=== PATIENT | male | born 1945 | race African-American/Black ===

== ENCOUNTER 2018-04-16 18:08 | Emergency (ER) | payer MEDICARE, MEDICAID ==
[2018-04-16 18:52] LABS: #Basophils 0.1 thou/uL (0.0-0.2); #Eosinphils 0.1 thou/uL (0.0-0.7); #Lymphocytes 1.9 thou/uL (1.20-3.40); #Monocytes 0.4 thou/uL (0.11-0.59); #Neutrophils 2.7 thou/uL (1.40-6.50); %Basophils 1.8 % (0.0-1.0); %Eosinophils 2.3 % (0.0-10.0); %Lymphocytes 35.7 % (21.0-51.0); %Monocytes 8.2 % (0.0-10.0); Hemoglobin 14.3 g/dL (14.0-18.0); Mean Corpuscular HGB CONC 31.4 g/dL (32.0-36.0); Mean Corpuscular Hemoglobin 28.5 pg (27.0-31.0); Mean Corpuscular Volume 90.8 fl (80.0-94.0); Mean Platelet Volume 8.1 fL (7.4-10.4); Platelet Count 174 thou/uL (130-400); RBC Distribution Width 14.7 % (11.5-14.5); White Blood Cell (WBC) Count 5.2 thou/uL (4.8-10.8)
[2018-04-16 19:04] LABS: PTT 26.2 SEC (22.9-36.1); Prothrombin Time 13.7 SEC (12.0-14.7)
[2018-04-16 19:14] LABS: ALT (SGPT) Less than 7 U/L (8-55); AST (SGOT) 21 U/L (5-34); Albumin 4.4 g/dL (3.4-4.8); Alkaline Phosphatase 49 U/L (40-150); Anion Gap 15 mmol/L (10-20); BUN (Urea Nitrogen) 14 mg/dL (8.4-25.7); Bilirubin, Total 0.4 mg/dL (0.2-1.2); CK (CPK) 358 U/L (30-200); Calc. Creatinine Clearance 0 mL/min (70-130); Calcium 9.6 mg/dL (7.8-10.44); Carbon Dioxide 24 mmol/L (23-31); Chloride 102 mmol/L (98-107); Estimated GFR-MDRD Greater than 90; Globulin 3.3 g/dL (2.4-3.5); Glucose 81 mg/dL (80-115); Lipase 35 U/L (8-78); Potassium 3.8 mmol/L (3.5-5.1); Protein, Total 7.7 g/dL (5.8-8.1); Sodium 137 mmol/L (136-145)
[2018-04-16 19:17] LABS: Bilirubin Negative (Negative); Blood, Urine Moderate (Negative); Clarity CLEAR (Clear); Glucose, Urine (Dipstick) Negative (Negative); Leukocyte Small (Negative); Nitrite Negative (Negative); Protein, Urine (Dipstick) Negative (Neg-Trace); pH, Urine 5.5 (5.0-9.0)
[2018-04-16 19:18] LABS: CKMB 3.4 ng/mL (0-6.6); Troponin I Less than 0.010 ng/mL (< 0.028)
[2018-04-16 19:20] LABS: Bacteria/HPF None Seen HPF (None Seen); Hyaline Casts/LPF 7-10 HYALINE CAST LPF (0-3 Hyaline); Pathc Cast-AUWi Flag 1.16 (0-2.49); RBC/HPF 21-50 HPF (0-3); Squamous Epithelial 0-3 HPF (0-3)
--- NOTE | 2018-04-16 19:40 | CT ---
CT BRAIN WITHOUT CONTRAST: 04/16/18 HISTORY: Confusion. COMPARISON: CT brain 05/08/15. FINDINGS: Mild microvascular ischemic changes. No acute territorial infarct or hemorrhage. No midline shift or mass effect. The mastoids are clear. The paranasal sinuses are clear. IMPRESSION: No acute intracranial abnormality. POS: [facility]
--- NOTE | 2018-04-16 20:48 | RAD ---
LIMITED CHEST ONE VIEW: 04/16/18 HISTORY: Altered mental status. COMPARISON: Radiograph 07/14/17. FINDINGS: The lungs are clear. No pneumothorax or effusion. The cardiac silhouette and mediastinal contours are within normal limits. Mild degenerative disease both glenohumeral joints. Moderate degenerative disease of both acromioclav icular joints. IMPRESSION: No acute intrathoracic abnormality. POS: [facility]
== END 2018-04-16 23:26 | disposition home or self-care (01) ==
LOC: ERS 18:08
DX: N39.0 Urinary tract infection, site not specified (principal); R53.1 Weakness; E78.5 Hyperlipidemia, unspecified; G20 Parkinson's disease; N40.0 Benign prostatic hyperplasia without lower urinary tract symptoms
CPT/HCPCS: 36415; 70450; 71045; 81015; 82553; 83690; 84484; 85610; 85730; 87086; 93005; 96360

== ENCOUNTER 2018-09-15 08:43 | Outpatient (CLI) | payer MEDICARE, MEDICAID ==
--- NOTE | 2018-09-15 15:40 | NM ---
NUCLEAR MEDICINE BRAIN IMAGING TOMOGRAPHY: 09/15/18 INDICATION: Parkinson's disease. RADIOPHARMACEUTICAL: 130 mg potassium iodide p.o. FINDINGS: There is symmetric, crescentic, scintigraphic uptake at the striata, bilaterally. IMPRESSION: Symmetric uptake of radiotracer activity, bilaterally. POS: [facility]
== END 2018-09-15 08:44 | disposition home or self-care (01) ==
LOC: NM 08:43
PROVIDERS: ATTEND Nurse Practitioner Acute Care
DX: G20 Parkinson's disease (principal)
CPT/HCPCS: 78607; A9584

== ENCOUNTER 2019-02-09 11:39 | Inpatient (IN) | payer MEDICARE, MEDICAID ==
[2019-02-09 12:36] LABS: Bilirubin Small (Negative); Blood, Urine Negative (Negative); Clarity CLOUDY (Clear); Glucose, Urine (Dipstick) Negative (Negative); Leukocyte Small (Negative); Nitrite Positive (Negative); Protein, Urine (Dipstick) 30 mg/dL (Neg-Trace); Specific Gravity, Urine 1.029 (1.002-1.036); pH, Urine 6.5 (5.0-9.0)
[2019-02-09 12:38] LABS: RBC/HPF 0-3 HPF (0-3); Squamous Epithelial 0-3 HPF (0-3); Yeast-AUWi Flag 6.5 (0-25.0)
[2019-02-09 12:39] LABS: Pathc Cast-AUWi Flag 2.72 (0-2.49)
[2019-02-09 12:40] LABS: Hemoglobin 14.4 g/dL (14.0-18.0); Mean Corpuscular HGB CONC 32.6 g/dL (32.0-36.0); Mean Corpuscular Hemoglobin 28.8 pg (27.0-31.0); Mean Corpuscular Volume 88.3 fL (78.0-98.0); Mean Platelet Volume 9.1 fL (7.4-10.4); Platelet Count 168 thou/uL (130-400); RBC Distribution Width 14.3 % (11.5-14.5); Red Blood Cell (RBC) Count 4.99 mill/uL (4.70-6.10); White Blood Cell (WBC) Count 17.3 thou/uL (4.8-10.8)
[2019-02-09 12:49] LABS: ALT (SGPT) Less than 7 U/L (8-55); AST (SGOT) 17 U/L (5-34); Albumin 3.9 g/dL (3.4-4.8); Alkaline Phosphatase 52 U/L (40-150); Anion Gap 14 mmol/L (10-20); BUN (Urea Nitrogen) 13 mg/dL (8.4-25.7); CK (CPK) 341 U/L (30-200); Calc. Creatinine Clearance 0 mL/min (70-130); Calcium 9.3 mg/dL (7.8-10.44); Carbon Dioxide 22 mmol/L (23-31); Chloride 103 mmol/L (98-107); Estimated GFR-MDRD Greater than 90; Globulin 3.4 g/dL (2.4-3.5); Glucose 78 mg/dL (83-110); Potassium 4.1 mmol/L (3.5-5.1); Protein, Total 7.3 g/dL (5.8-8.1); Sodium 135 mmol/L (136-145)
[2019-02-09 12:50] LABS: Bacteria/HPF 4+ HPF (None Seen); Hyaline Casts/LPF 0-3 HYALINE CAST LPF (0-3 Hyaline); Manual Microscopic Reviewed? No Path Casts Seen; Sperm/HPF Rare HPF (None Seen)
--- NOTE | 2019-02-09 12:50 | RAD ---
TWO VIEWS LEFT KNEE: History: Fall with knee pain. FINDINGS: Two views of the left knee shows no evidence of acute fracture or dislocation. No knee effusion is se en. IMPRESSION: No evidence of acute osseous abnormality. POS: [facility]
--- NOTE | 2019-02-09 12:52 | RAD ---
SINGLE VIEW OF THE CHEST: Comparison: 04-16-18 History: Fall, chest pain. FINDINGS: Single view of the chest shows a normal sized cardiomediastinal silhouette with atherosclerotic calci fications in the aorta. There is no evidence of consolidation, mass, or pleural effusions. The bones are unremarkable. IMPRESSION: 1. No evidence of acute cardiopulmonary disease. 2. Atherosclerotic disease. POS: [facility]
--- NOTE | 2019-02-09 12:56 | RAD ---
AP PELVIS: History: Fall with injury to pelvis. FINDINGS: Pelvis appears intact with no evidence of fracture. Mild degenerative changes at both hips. IMPRESSION: No active abnormality. POS: [facility]
--- NOTE | 2019-02-09 12:57 | RAD ---
LEFT HIP TWO VIEWS: History: Fall with injury to hip. FINDINGS: There are mild degenerative changes at the left hip. Mild spurring from the femoral head and acetabul um. No fracture. No acute abnormality. IMPRESSION: No acute findings. POS: [facility]
--- NOTE | 2019-02-09 13:03 | CT ---
CT BRAIN WITHOUT CONTRAST: Comparison: 04-16-18 History: Unwitnessed fall at senior living yesterday. Altered mental status. Technique: Multiple contiguous axial images were obtained in a CT of the brain without contrast. FINDINGS: The brain is normal in morphology and attenuation without focal lesions or confluent areas of infarct ion. There is no evidence of hydrocephalus, intracranial hemorrhage, or extraaxial fluid collections. The calvarium and overlying soft tissues are unremarkable. The visualized paranasal sinuses and masto id air cells are well aerated. IMPRESSION: No evidence of acute intracranial abnormality. POS: [facility]
[2019-02-09 13:25] LABS: Band 12 % (5-11); Lymphocytes 1 % (21-51); MDiff Complete? YES; Monocytes 4 % (0-10); Neutrophil 83 % (42-75); Platelet Morphology Comment Appears Adequate
[2019-02-09] MEDS ORDERED: cefTRIAXone\\ROCEPHIN 1 GM VIAL ONE (14:19)
[2019-02-09] MEDS ORDERED: Polyethylene Glycol 3350 17 GM Packet PO PRN (15:36)
[2019-02-09] MEDS ORDERED: traZODone HCl 50 MG TAB PO PRN (15:36)
[2019-02-09] MEDS: Acetaminophen 325 MG TAB PO PRN (21:01)
[2019-02-09] MEDS: Docusate 100 MG CAP PO SCH (21:02)
[2019-02-09] MEDS: Carbidopa/Levodopa 25-100 mg Tablet PO SCH (21:02)
[2019-02-09] MEDS: Atorvastatin Calcium 10 MG TAB PO SCH (21:02)
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
[2019-02-09] MEDS ORDERED: Acetaminophen 650 MG Suppository PR PRN (23:18)
[2019-02-09] MEDS ORDERED: Vancomycin HCl 1 GM in Premix Bag 1 BAG IVPB SCH (23:30)
[2019-02-09] MEDS: MEROPENEM 1 GM/50 ML 1 GM in Premix Bag 1 BAG IVPB SCH (23:47)
[2019-02-10 00:14] LABS: Anion Gap 12 mmol/L (10-20); BUN (Urea Nitrogen) 12 mg/dL (8.4-25.7); CK (CPK) 354 U/L (30-200); Calc. Creatinine Clearance 69 mL/min (70-130); Calcium 8.7 mg/dL (7.8-10.44); Carbon Dioxide 23 mmol/L (23-31); Chloride 105 mmol/L (98-107); Estimated GFR-MDRD 80; Glucose 121 mg/dL (83-110); Potassium 3.9 mmol/L (3.5-5.1); Sodium 136 mmol/L (136-145)
[2019-02-10 00:16] LABS: Band 6 % (5-11); Hemoglobin 13.8 g/dL (14.0-18.0); Lymphocytes 10 % (21-51); MDiff Complete? YES; Mean Corpuscular HGB CONC 32.5 g/dL (32.0-36.0); Mean Corpuscular Hemoglobin 29.3 pg (27.0-31.0); Mean Platelet Volume 8.4 fL (7.4-10.4); Monocytes 4 % (0-10); Neutrophil 80 % (42-75); Platelet Count 159 thou/uL (130-400); RBC Distribution Width 14.4 % (11.5-14.5); Red Blood Cell (RBC) Count 4.71 mill/uL (4.70-6.10)
[2019-02-10] MEDS: Sodium Chloride 0.9% 1,000 ML IV SCH ×3 (00:36→21:53)
[2019-02-10] MEDS ORDERED: Meropenem 1 GM in Sodium Chloride 0.9% 100 ML IVPB SCH (06:00)
[2019-02-10 06:14] LABS: Anion Gap 11 mmol/L (10-20); BUN (Urea Nitrogen) 12 mg/dL (8.4-25.7); Calc. Creatinine Clearance 81 mL/min (70-130); Calcium 8.5 mg/dL (7.8-10.44); Carbon Dioxide 24 mmol/L (23-31); Chloride 105 mmol/L (98-107); Estimated GFR-MDRD Greater than 90; Glucose 106 mg/dL (83-110); Potassium 3.8 mmol/L (3.5-5.1); Sodium 136 mmol/L (136-145)
[2019-02-10 06:18] LABS: Band 7 % (5-11); Hemoglobin 13.4 g/dL (14.0-18.0); Lymphocytes 6 % (21-51); MDiff Complete? YES; Mean Corpuscular HGB CONC 32.8 g/dL (32.0-36.0); Mean Corpuscular Hemoglobin 29.5 pg (27.0-31.0); Mean Corpuscular Volume 89.9 fL (78.0-98.0); Mean Platelet Volume 8.4 fL (7.4-10.4); Monocytes 12 % (0-10); Neutrophil 75 % (42-75); Platelet Count 149 thou/uL (130-400); RBC Distribution Width 14.2 % (11.5-14.5); Red Blood Cell (RBC) Count 4.56 mill/uL (4.70-6.10); White Blood Cell (WBC) Count 16.4 thou/uL (4.8-10.8)
[2019-02-10] MEDS: MEROPENEM 1 GM/50 ML 1 GM in Premix Bag 1 BAG IVPB SCH ×3 (09:36→23:55)
[2019-02-10] MEDS: Enoxaparin Sodium 40 MG/0.4 ML SYRINGE SC SCH (09:37)
[2019-02-10] MEDS: Carbidopa/Levodopa 25-100 mg Tablet PO SCH ×3 (09:38→21:17)
[2019-02-10] MEDS: Docusate 100 MG CAP PO SCH ×2 (09:38→23:57)
--- NOTE | 2019-02-10 11:04 | PDOC.PN ---
- Subjective Encounter Start Date: 02/10/19 Encounter Start Time: 08:20 Subjective: awake, responds well to verbal stimuli, is slow to talk -: no trouble breathing or abd pain -: ate his breakfast - Objective Resuscitation Status - Order Detail: 02/09/19 15:27 Resuscitation Status Routine Resuscitation Status: FULL: Full Resuscitation MAR Reviewed: Yes Vital Signs & Weight: Vital Signs (12 hours) Temp Pulse Resp BP Pulse Ox 02/10/19 08:00 98.3 F 99 16 101/68 98 02/10/19 04:00 98.9 F 101 H 18 107/58 L 97 Weight Weight 174 lb 4.8 oz Result Diagrams: 02/10/19 05:30 02/10/19 05:30 Phys Exam - Physical Examination HEENT: PERRLA, moist MMs Neck: no JVD, supple Respiratory: no wheezing, no rales Cardiovascular: RRR, no significant murmur Gastrointestinal: soft, non-tender, positive bowel sounds Musculoskeletal: no edema, pulses present Neurological: non-focal, moves all 4 limbs Dx/Plan (1) Sepsis Code(s): A41.9 - SEPSIS, UNSPECIFIED ORGANISM Status: Acute Qualifiers: Sepsis type: sepsis due to unspecified organism Qualified Code(s): A41.9 - Sepsis, unspecified organism (2) UTI (urinary tract infection) Status: Acute Qualifiers: Urinary tract infection type: acute cystitis Hematuria presence: without hematuria Qualified Code(s): N30.00 - Acute cystitis without hematuria (3) Dementia Code(s): F03.90 - UNSPECIFIED DEMENTIA WITHOUT BEHAVIORAL DISTURBANCE Status: Chronic Qualifiers: Dementia type: Parkinson's disease Dementia behavioral disturbance: without behavioral disturbance Qualified Code(s): G20 - Parkinson's disease; F02.80 - Dementia in other diseases classified elsewhere without behavioral disturbance (4) HTN (hypertension) Code(s): I10 - ESSENTIAL (PRIMARY) HYPERTENSION Status: Chronic Qualifiers: Hypertension type: essential hypertension Qualified Code(s): I10 - Essential (primary) hypertension (5) BPH (benign prostatic hyperplasia) Code(s): N40.0 - BENIGN PROSTATIC HYPERPLASIA WITHOUT LOWER URINRY TRACT SYMP Status: Chronic Qualifiers: Lower urinary tract symptom presence: unspecified whether lower urinary tract symptoms present Qualified Code(s): N40.0 - Benign prostatic hyperplasia without lower urinary tract symptoms (6) Weakness generalized Code(s): R53.1 - WEAKNESS Status: Acute (7) Dyslipidemia Code(s): E78.5 - HYPERLIPIDEMIA, UNSPECIFIED Status: Chronic (8) GERD (gastroesophageal reflux disease) Code(s): K21.9 - GASTRO-ESOPHAGEAL REFLUX DISEASE WITHOUT ESOPHAGITIS Status: Chronic Qualifiers: Esophagitis presence: esophagitis presence not specified Qualified Code(s) : K21.9 - Gastro-esophageal reflux disease without esophagitis (9) Parkinson disease Code(s): G20 - PARKINSON'S DISEASE Status: Chronic - Plan is on meropenem and vanc, draw cultures stat, wbc 16k -: continue iv hydration x 2 bags and discontinue -: on sinemet, lipitor. May use trazadone home dose prn HS -: tx to medical floor -: tmax of 102 but stable this am. PT to mobilize as tolerated * . Review of Systems - Medications/Allergies Allergies/Adverse Reactions: Allergies Allergy/AdvReac Type Severity Reaction Status Date / Time No Known Drug Allergies Allergy Verified 07/14/17 14:30 Medications: Current Medications Acetaminophen (Tylenol) 650 mg PO Q4H PRN PRN Reason: Headache/Fever/Mild Pain (1-3) Last Admin: 02/09/19 21:01 Dose: 650 mg Acetaminophen (Tylenol) 650 mg KS Q4H PRN PRN Reason: Headache/Fever/Mild Pain (1-3) Last Admin: 02/09/19 23:55 Dose: 650 mg Atorvastatin Calcium (Lipitor) 10 mg PO HS [facility] Last Admin: 02/09/19 21:02 Dose: 10 mg Carbidopa/Levodopa (Sinemet 25-100) 1 tab PO TID [facility] Last Admin: 02/10/19 09:38 Dose: 1 tab Docusate Sodium (Colace) 100 mg PO BID [facility] Last Admin: 02/10/19 09:38 Dose: 100 mg Enoxaparin Sodium (Lovenox) 40 mg SC 0900 [facility] Last Admin: 02/10/19 09:37 Dose: 40 mg Meropenem 1 gm/ Device 50 mls @ 100 mls/hr IVPB Q8H [facility] Last Admin: 02/10/19 09:36 Dose: 50 mls Sodium Chloride (Normal Saline 0.9%) 1,000 mls @ 100 mls/hr IV .Q10H [facility] Last Admin: 02/10/19 00:36 Dose: 1,000 mls Lactulose (Lactulose) 30 gm PO DAILY [facility] Last Admin: 02/10/19 09:37 Dose: 30 gm Pantoprazole Sodium (Protonix) 40 mg PO DAILY [facility] Last Admin: 02/10/19 09:38 Dose: 40 mg Polyethylene Glycol (Miralax) 17 gm PO DAILYPRN PRN PRN Reason: Constipation Sodium Chloride (Flush - Normal Saline) 10 ml IVF Q12HR [facility] Last Admin: 02/10/19 09:38 Dose: Not Given Sodium Chloride (Flush - Normal Saline) 10 ml IVF PRN PRN PRN Reason: Saline Flush Trazodone HCl (Desyrel) 50 mg PO HS PRN PRN Reason: Insomnia
[2019-02-10] MEDS ORDERED: cefTRIAXone\\ROCEPHIN 1 GM in Sodium Chloride 0.9% 100 ML IVPB SCH (15:00)
[2019-02-10] MEDS ORDERED: Midodrine HCl 5 MG TAB PO PRN (20:33)
[2019-02-10] MEDS: Atorvastatin Calcium 10 MG TAB PO SCH (21:17)
[2019-02-10] MEDS: Acetaminophen 325 MG TAB PO PRN (21:17)
--- NOTE | 2019-02-10 22:01 | PDOC.EVN ---
Event Note - Event Note Event Note: Notified patient with persistent tachycardia, drowsy and temp of 102. Does not seem to be clinically improved. Received Vanc x 1 yesterday evening. No further Vancomycin given. Appears order for pharmacy to dose was placed as Nursing Communication. Have notified Pharmacy and they will resume Vanc beginning with a loading dose given good CrCl. Hold on transfer to [place] and continue IV fluids.
[2019-02-10] MEDS ORDERED: Vancomycin HCl 1.5 GM in Sodium Chloride 0.9% 250 ML 300 ML IVPB SCH (22:30)
[2019-02-11] MEDS: MEROPENEM 1 GM/50 ML 1 GM in Premix Bag 1 BAG IVPB SCH ×3 (09:47→23:43)
[2019-02-11] MEDS: Polyethylene Glycol 3350 17 GM Packet PO SCH (09:49)
[2019-02-11] MEDS: Enoxaparin Sodium 40 MG/0.4 ML SYRINGE SC SCH (09:49)
[2019-02-11] MEDS: Carbidopa/Levodopa 25-100 mg Tablet PO SCH ×3 (09:51→21:01)
[2019-02-11] MEDS: Acetaminophen 325 MG TAB PO PRN ×2 (09:51→21:01)
[2019-02-11] MEDS: Docusate 100 MG CAP PO SCH ×3 (09:51→21:02)
[2019-02-11] MEDS: Sodium Chloride 0.9% 1,000 ML IV SCH ×2 (09:52→22:08)
--- NOTE | 2019-02-11 11:12 | PRG ---
DATE OF SERVICE: 02/11/2019 SUBJECTIVE: The patient was seen and examined at the bedside. He is very slow to respond, but he is following my short simple commands. OBJECTIVE: VITAL SIGNS: Blood pressure is 133/75, pulse is 96, temperature is 98.5, respirations 16, and O2 saturation is 95% on room air. Apparently, he had temperature up to 102 last night. HEENT: His pupils are responding to light properly. Sclerae are nonicteric. Oral mucosa is moist. NECK: Supple. LUNGS: Clear. HEART: S1, S2 normal. No S3. No S4. ABDOMEN: Soft, nontender. Bowel sounds are present. No organomegaly. EXTREMITIES: No clubbing, cyanosis, or edema. NEUROLOGIC: He follows my short, simple commands. He is able to move his all 4 extremities, although with difficulty and some spasticity in the upper and lower extremities and weakness present in 4 limbs. SKIN: No rash or erythema. LABORATORY DATA: White count of 16.4, hemoglobin 13.4, hematocrit 41.0, and platelet count 249,000. Normal BMP. Three sets of troponins are within normal limits. Microbiology, blood cultures x2 negative. Stool culture negative. Campylobacter assay and shiga toxin 1 and 2 negative. IMPRESSION: 1. Sepsis, unspecified organism. 2. Urinary tract infection. We are trying to get more information about his urine culture, nothing is posted yet. We will contact the lab. 3. 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 4. Hypertension. 5. Benign prostatic hyperplasia. 6. Generalized weakness. 7. Dyslipidemia. 8. Gastroesophageal reflux disease. 9. Parkinson disease. PLAN: The patient is on meropenem and vancomycin. We are in the process of finding the etiology of his fever and infection. We will continue both antibiotics. We will continue his Sinemet and Lipitor and DVT prophylaxis. Job ID: [id number]
[2019-02-11] MEDS: Vancomycin HCl 1 GM in Premix Bag 1 BAG IVPB SCH ×2 (11:52→23:39)
[2019-02-11] MEDS: Atorvastatin Calcium 10 MG TAB PO SCH (21:02)
[2019-02-12] MEDS: Sodium Chloride 0.9% 1,000 ML IV SCH (05:06)
[2019-02-12] MEDS: Polyethylene Glycol 3350 17 GM Packet PO SCH (08:53)
[2019-02-12] MEDS: Enoxaparin Sodium 40 MG/0.4 ML SYRINGE SC SCH (08:55)
[2019-02-12] MEDS: Carbidopa/Levodopa 25-100 mg Tablet PO SCH ×3 (08:57→21:05)
[2019-02-12] MEDS: Docusate 100 MG CAP PO SCH ×3 (08:57→21:08)
[2019-02-12] MEDS: MEROPENEM 1 GM/50 ML 1 GM in Premix Bag 1 BAG IVPB SCH ×2 (10:05→16:52)
[2019-02-12 11:52] LABS: #Lymphocytes 0.9 thou/uL (1.20-3.40); #Monocytes 0.6 thou/uL (0.11-0.59); #Neutrophils 5.7 thou/uL (1.40-6.50); %Basophils 0.2 % (0.0-1.0); %Eosinophils 0.6 % (0.0-10.0); %Lymphocytes 11.7 % (21.0-51.0); %Monocytes 8.8 % (0.0-10.0); %Neutrophils 78.6 % (42.0-75.0); Hemoglobin 13.9 g/dL (14.0-18.0); Mean Corpuscular HGB CONC 32.5 g/dL (32.0-36.0); Mean Corpuscular Hemoglobin 29.4 pg (27.0-31.0); Mean Corpuscular Volume 90.5 fL (78.0-98.0); Mean Platelet Volume 7.8 fL (7.4-10.4); Platelet Count 180 thou/uL (130-400); RBC Distribution Width 14.3 % (11.5-14.5); Red Blood Cell (RBC) Count 4.71 mill/uL (4.70-6.10); White Blood Cell (WBC) Count 7.3 thou/uL (4.8-10.8)
[2019-02-12 12:11] LABS: Vancomycin, Trough 11.5 ug/mL
[2019-02-12] MEDS: Vancomycin HCl 1 GM in Premix Bag 1 BAG IVPB SCH (12:22)
--- NOTE | 2019-02-12 13:20 | PRG ---
DATE OF SERVICE: 02/12/2019 SUBJECTIVE: The patient is seen and examined at the bedside. He has advanced dementia, so there is no communication with him whatsoever. He does not follow much of my commands. OBJECTIVE: VITAL SIGNS: Blood pressure is 156/91, temperature is 99.4, pulse 96, respirations 16, O2 saturations is 97 on room air. His temperature was 100.4 yesterday and 100.2 two days ago. HEENT: His pupils responding to light properly. Sclerae are nonicteric. Oral mucosa is moist. NECK: Supple. LUNGS: Clear. HEART: S1, S2 normal. ABDOMEN: Soft, nontender. Bowel sounds are present. EXTREMITIES: No clubbing, cyanosis, or edema. NEUROLOGICAL EXAMINATION: He does not follow my commands. There is no communication. Looks like, he is able to move his all four extremities spontaneously. LABORATORY DATA: Labs showed white count of 7.3, hemoglobin of 13.9, hematocrit 42.6, platelet count is 180,000. Microbiology, urine culture negative in 12 hours. Blood cultures negative x2. Stool culture negative, Campylobacter assay negative and Shiga toxin 1 and 2 are negative. IMPRESSION: 1. Sepsis of unclear etiology. Since urine culture came back negative, I will scan his abdomen with and without contrast. 2. Suspected urinary tract infection, but culture came back negative. 3. Dementia related to Parkinson's disease. 4. Hypertension. 5. Benign prostatic hyperplasia. 6. Generalized weakness. 7. Dyslipidemia. 8. Gastroesophageal reflux disease. 9. Parkinson's disease. PLAN: Continue meropenem and vancomycin, scan his abdomen, and continue the rest of the regimen. Job ID: [id number]
[2019-02-12] MEDS: Vancomycin HCl 1.25 GM in Sodium Chloride 0.9% 250 ML 250 ML IVPB SCH (13:28)
[2019-02-12] MEDS ORDERED: ISOVUE-370 76%-LOCM 1 ML ONE (15:16)
[2019-02-12] MEDS: Acetaminophen 325 MG TAB PO PRN ×2 (15:54→21:01)
--- NOTE | 2019-02-12 17:01 | CT ---
FEXAM: Abdomen and pelvic CT scan with contrast: HISTORY: Sepsis COMPARISON: None FINDINGS: Scarring and/or volume loss is seen at lung bases Liver: Unremarkable. Gallbladder:Unremarkable. Pancreas:Unremarkable Spleen:Unremarkable. Adrenal glands:Unremarkable. Kidneys:Several bilateral renal cysts and additional hypodensities are present, too small to definiti vely characterize. There is radiopaque density posterior to the left kidney, producing streak artifac t which limits evaluation. Bowel: No evidence for bowel obstruction. Urinary Bladder: Markedly thickened urinary bladder wall, and the bladder is contracted adjacent pros rocha gland is enlarged. Adenopathy:No adenopathy within the abdomen or pelvis. Free Air: No free air. Ascites: No ascites. Prominent sized, predominantly fat-containing bilateral inguinal hernias are present. Osseous structures: No acute osseous abnormalities. IMPRESSION: Marked abnormal thickening of the contracted urinary bladder. This may relate to reactive, infectious /inflammatory cystitis. The possibility of underlying neoplasm is not excluded. There is adjacent pro statomegaly. Recommend clinical correlation and follow up in this regard.
[2019-02-12] MEDS: Atorvastatin Calcium 10 MG TAB PO SCH (21:04)
[2019-02-13] MEDS: MEROPENEM 1 GM/50 ML 1 GM in Premix Bag 1 BAG IVPB SCH ×3 (00:23→16:58)
[2019-02-13] MEDS: Vancomycin HCl 1.25 GM in Sodium Chloride 0.9% 250 ML 250 ML IVPB SCH (01:49)
[2019-02-13 06:03] LABS: #Eosinphils 0.2 thou/uL (0.0-0.7); #Lymphocytes 0.8 thou/uL (1.20-3.40); #Monocytes 0.9 thou/uL (0.11-0.59); #Neutrophils 4.3 thou/uL (1.40-6.50); %Basophils 0.2 % (0.0-1.0); %Eosinophils 2.5 % (0.0-10.0); %Lymphocytes 12.9 % (21.0-51.0); %Monocytes 14.2 % (0.0-10.0); %Neutrophils 70.1 % (42.0-75.0); Mean Corpuscular HGB CONC 32.2 g/dL (32.0-36.0); Mean Corpuscular Hemoglobin 28.6 pg (27.0-31.0); Mean Corpuscular Volume 88.8 fL (78.0-98.0); Mean Platelet Volume 7.7 fL (7.4-10.4); Platelet Count 183 thou/uL (130-400); RBC Distribution Width 14.4 % (11.5-14.5); Red Blood Cell (RBC) Count 4.91 mill/uL (4.70-6.10); White Blood Cell (WBC) Count 6.1 thou/uL (4.8-10.8)
[2019-02-13] MEDS: Enoxaparin Sodium 40 MG/0.4 ML SYRINGE SC SCH (09:20)
[2019-02-13] MEDS: Docusate 100 MG CAP PO SCH ×3 (09:21→21:31)
[2019-02-13] MEDS: Carbidopa/Levodopa 25-100 mg Tablet PO SCH ×3 (09:21→21:30)
[2019-02-13] MEDS ORDERED: Ondansetron ODT 4 MG TAB PO PRN (10:13)
[2019-02-13] MEDS: Polyethylene Glycol 3350 17 GM Packet PO SCH (10:16)
--- NOTE | 2019-02-13 16:00 | PRG ---
DATE OF SERVICE: 02/13/2019 SUBJECTIVE: The patient is evaluated in his room. He is in 206. Today, he is able to talk to me in short sentences. OBJECTIVE: VITAL SIGNS: Blood pressure is 122/80, pulse is 88, temperature is 99.1, his maximal temperature is 100.2 last night, respiratory rate is 15, and O2 saturation is 95% on room air. HEENT: His pupils are responding to light properly. Sclerae are nonicteric. Oral mucosa is moist. NECK: Supple. LUNGS: Clear. HEART: S1, S2 normal. No S3. No S4. ABDOMEN: Soft and nontender. EXTREMITIES: No clubbing, cyanosis, or edema. NEUROLOGIC: He tries to follow my commands. He is able to move his all 4 extremities. He has quite significant dementia. LABORATORY DATA: Showed normal CBC. CT of the abdomen and pelvis done showed bladder with markedly thickened wall. Prostate gland enlarged. There is no adenopathy within the abdomen or pelvis. No ascites. No free air with prominent sites predominantly fat containing bilateral inguinal hernias. The above-mentioned changes in his urinary bladder could be related to reactive infectious/inflammatory cystitis or underlying neoplasm, which cannot be ruled out. There is also adjacent prostatomegaly. IMPRESSION: 1. Sepsis again of unclear source. We will try to investigate the findings on the CT of the abdomen and pelvis regarding urinary bladder changes. We will ask urologist to step by and see him. 2. Nonsustained supraventricular tachycardia, 11 beats in the last 24 hours. 3. 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 4. Suspected urinary tract infection, but culture came back negative. 5. Hypertension. 6. Benign prostatic hyperplasia. 7. Generalized weakness. 8. Dyslipidemia. 9. Gastroesophageal reflux disease. 10. Parkinson disease. PLAN: I am going to stop his vancomycin at this point and continue meropenem. I am going to start him on metoprolol succinate 25 mg to prevent SVT from coming back. We will ask Dr. Knight to evaluate his urinary issues. Job ID: [id number]
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
[2019-02-13] MEDS: Atorvastatin Calcium 10 MG TAB PO SCH (21:30)
[2019-02-13] MEDS: Tamsulosin HCl 0.4 MG CAP PO SCH (21:31)
[2019-02-14] MEDS: MEROPENEM 1 GM/50 ML 1 GM in Premix Bag 1 BAG IVPB SCH ×3 (00:05→16:04)
[2019-02-14] MEDS: Finasteride 5 MG TAB PO SCH (09:14)
[2019-02-14] MEDS: Polyethylene Glycol 3350 17 GM Packet PO SCH (09:14)
[2019-02-14] MEDS: Docusate 100 MG CAP PO SCH ×3 (09:14→20:00)
[2019-02-14] MEDS: Enoxaparin Sodium 40 MG/0.4 ML SYRINGE SC SCH (09:14)
[2019-02-14] MEDS: Carbidopa/Levodopa 25-100 mg Tablet PO SCH ×3 (09:14→20:00)
[2019-02-14] MEDS: Tamsulosin HCl 0.4 MG CAP PO SCH ×2 (09:15→20:00)
--- NOTE | 2019-02-14 11:02 | PRG ---
DATE OF SERVICE: 02/14/2019 SUBJECTIVE: The patient is seen and examined at bedside. He is more responsive today. He answered my simple questions and he follows my simple commands. OBJECTIVE: VITAL SIGNS: Blood pressure is 105/63, pulse is 91, temperature is 99.3, respiratory rate is 16, and O2 saturation is 94%. HEENT: His head is atraumatic and normocephalic. Sclerae are nonicteric. Oral mucosa is moist. NECK: Supple. LUNGS: Clear. HEART: S1 and S2 normal. No S3. No S4. No any murmur. ABDOMEN: Soft and nontender. Bowel sounds are present. No organomegaly. EXTREMITIES: No clubbing, cyanosis, or edema. NEUROLOGIC: He is significantly demented, but he follows my simple commands. He moves his all 4 extremities. Also, there are no any motor deficits. LABORATORY DATA: None today. IMPRESSION: 1. Sepsis, again of unclear source, presumed urinary tract. Urologist was consulted and he is going to be started on Flomax. We will have cystoscopy on outpatient basis after his discharge. Also, we will ask Dr. Melton to look at him and give us his recommendation since his temperature is still low-grade and it is unclear was the source. 2. Nonsustained supraventricular tachycardia. The patient is started on small dose of metoprolol succinate and he did not have more episodes of that overnight. 3. 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 4. Suspected urinary tract infection. Blood culture came back negative. 5. Hypertension. 6. Benign prostatic hyperplasia. 7. Generalized weakness. 8. Dyslipidemia. 9. Gastroesophageal reflux disease. 10. Parkinson disease. PLAN: Plan is mentioned above as Dr. Knight recommended to start him on Flomax and he will need cystoscopy on outpatient basis. In the meantime, we will ask Dr. Melton to look at him and see what his recommendations are. It is still unclear what is the source of sepsis. We will continue current regimen, . Job ID: [id number]
--- NOTE | 2019-02-14 12:34 | PRG ---
DATE OF SERVICE: 02/14/2019 SUBJECTIVE: The patient has no complaints. He has not really noticed change in urination. He is eating breakfast without difficulty. OBJECTIVE: VITAL SIGNS: His vitals have been stable 99.6, current 99.3. He is listed as incontinent. : On exam, his foreskin is now reduced and the abrasion from yesterday looks unchanged. His testes were being smooshed, so they were elevated. There were no new labs. ASSESSMENT: We have a 73-year-old male with benign prostatic hyperplasia and urinary tract infection from this or his foreskin, but unfortunately do not have a culture to guide his antibiotics. But I would keep him on antibiotics for at least 2 weeks. At this point, I have already started tamsulosin twice a day and finasteride. He ultimately deserves outpatient cystoscopy upon discharge. Job ID: [id number] MTDD
[2019-02-14 18:55] LABS: HIV (1/2) Antibody/Antigen Non-Reactive (NonReactive); HIV 1/2 INDEX 0.08 S/CO (<1.00); Hep C IgG Ab Non-Reactive (NonReactive); Hep C Index 0.13 S/CO (0-0.79)
[2019-02-14] MEDS: Ciprofloxacin 500 MG TAB PO SCH (19:59)
[2019-02-14] MEDS: Atorvastatin Calcium 10 MG TAB PO SCH (20:00)
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
[2019-02-15] MEDS: Ciprofloxacin 500 MG TAB PO SCH ×2 (05:55→22:02)
[2019-02-15 07:11] LABS: Anion Gap 11 mmol/L (10-20); BUN (Urea Nitrogen) 11 mg/dL (8.4-25.7); Calc. Creatinine Clearance 95 mL/min (70-130); Carbon Dioxide 26 mmol/L (23-31); Chloride 102 mmol/L (98-107); Estimated GFR-MDRD Greater than 90; Glucose 97 mg/dL (83-110); Potassium 3.9 mmol/L (3.5-5.1); Sodium 135 mmol/L (136-145)
[2019-02-15] MEDS: Docusate 100 MG CAP PO SCH ×3 (09:05→22:03)
[2019-02-15] MEDS: Carbidopa/Levodopa 25-100 mg Tablet PO SCH ×3 (09:06→22:02)
[2019-02-15] MEDS: Polyethylene Glycol 3350 17 GM Packet PO SCH (09:07)
[2019-02-15] MEDS: Tamsulosin HCl 0.4 MG CAP PO SCH ×2 (09:08→22:03)
[2019-02-15] MEDS: Finasteride 5 MG TAB PO SCH (09:08)
[2019-02-15] MEDS: Enoxaparin Sodium 40 MG/0.4 ML SYRINGE SC SCH (09:09)
--- NOTE | 2019-02-15 11:45 | PRG ---
DATE OF SERVICE: 02/15/2019 SUBJECTIVE: The patient is seen and examined at the bedside. I think he is in his baseline in terms of mental condition. He follows my basic commands. He tries to say few words, but most of the time they do not make any sense. OBJECTIVE: VITAL SIGNS: Blood pressure is 109/66; temperature 97.7, in the morning it was 99.6; pulse ox 87; respiratory rate is 18; and O2 saturation is 97% on room air. HEENT: His pupils are responding to light properly. Sclerae are nonicteric. Conjunctivae are pinkish. Oral mucosa is moist. NECK: Supple. LUNGS: Clear. HEART: S1 and S2. Irregular. No S3. No S4. ABDOMEN: Soft and nontender. EXTREMITIES: No clubbing, cyanosis, or edema. NEUROLOGICAL: Not changed since yesterday. He tries to follow my commands. He moves his all extremities, but he is quite demented. IMPRESSION: 1. Sepsis. Again, unclear etiology. Presumed urinary tract. The patient was started on Flomax. He will have cystoscopy on outpatient basis after the discharge. The patient was seen by Dr. Melton, who is planning to do LP on him to check the status on his syphilis. He has a history of neurosyphilis in the past. His C antibody came back negative and HIV-1 and 2 antigen and antibodies came back nonreactive. 2. Nonsustained supraventricular tachycardia. The patient was started on metoprolol and since that time, he did not have more episodes of supraventricular tachycardia. 3. 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 4. Suspect urinary tract infection, but with blood cultures came back negative. 5. Hypertension. 6. Benign prostatic hyperplasia. 7. Generalized weakness. 8. Dyslipidemia. 9. Parkinson's disease. 10. Gastroesophageal reflux disease. PLAN: As mentioned above and we will continue his PT and we will set him up for LP. Job ID: [id number]
--- NOTE | 2019-02-15 15:11 | PRG ---
DATE OF SERVICE: 02/15/2019 SUBJECTIVE: The patient complains of significant sore throat at this time, but otherwise is not having concerns. His output has still been listed as Depends, but they have been significantly wet. OBJECTIVE: The patient has been stable with T-max of 99.6, but he did have concerns for arrhythmias and was transferred to the telemetry floor for this reason. On exam, again, his foreskin is partially back, and I am not sure whether the patient is manipulating this or others, but I returned the foreskin to its reduced position. The small abrasion appears unchanged. There is more redness in the inguinal folds consistent with irritation from the urine and possibly the beginning of yeast infection in his inguinal creases. LABORATORY DATA: His creatinine is good at 0.80. ASSESSMENT: We have a 73-year-old male with presumed urinary tract infection. Dr. Melton has evaluated him and also concerned for some other sources. I will defer any antibiotic management to him. I would continue with tamsulosin twice a day and finasteride once a day. He can follow up with me as an outpatient for cystoscopy. I did review his foreskin and genital area in general with the nurse. He will get a bed bath today. Please contact me if there are further urologic concerns during the stay. Job ID: [id number] MTDD
--- NOTE | 2019-02-15 17:27 | PRG ---
DATE OF SERVICE: 02/15/2019 SUBJECTIVE: Mr. Falk is still not very talkative, actually he is barely able to reply to questions. At the beginning of the conversation, he was able to give us some information, but at the end he has really quit replying to my questions. He said initially he was having some dysuria that has improved. Denies any chest pain. No cough. OBJECTIVE: VITAL SIGNS: Temperature max was 100.2 about 3 days ago, now is 99.9, BP 111/74, pulse 89. GENERAL: He has his glasses on and again barely talks, answers any questions. HEENT: Ocular movements are conjugate. LUNGS: Symmetric. Clear breath sounds. HEART: S1 and S2. Regular rate. ABDOMEN: Soft. No bladder distention. EXTREMITIES: He is able to move extremities. LABORATORY DATA: White cell count down to 6.1, hemoglobin 14, and platelets 183. Urinalysis was abnormal as noted before, but cultures negative at 36 hours. Shiga toxin was negative and Campylobacter antigen was negative. ASSESSMENT AND DISCUSSION: Parkinson disease, dementia, cystitis, neutrophilia, bandemia. The patient will continue to be treated with, I believe, quinolone, and we will follow up the results of the repeat RPR. May need down the road repeat CSF evaluation to make sure that syphilis was properly treated. Job ID: [id number]
[2019-02-15] MEDS: Atorvastatin Calcium 10 MG TAB PO SCH (22:02)
[2019-02-16] MEDS: Ciprofloxacin 500 MG TAB PO SCH ×2 (06:18→20:53)
[2019-02-16] MEDS: Carbidopa/Levodopa 25-100 mg Tablet PO SCH ×3 (10:03→20:54)
[2019-02-16] MEDS: Docusate 100 MG CAP PO SCH ×2 (10:03)
[2019-02-16] MEDS: Polyethylene Glycol 3350 17 GM Packet PO SCH ×3 (10:04→14:35)
[2019-02-16] MEDS: Finasteride 5 MG TAB PO SCH (10:04)
[2019-02-16] MEDS: Tamsulosin HCl 0.4 MG CAP PO SCH ×2 (10:04→20:53)
[2019-02-16 11:18] LABS: Hemoglobin 14.2 g/dL (14.0-18.0); Mean Corpuscular HGB CONC 33.3 g/dL (32.0-36.0); Mean Corpuscular Hemoglobin 29.4 pg (27.0-31.0); Mean Corpuscular Volume 88.1 fL (78.0-98.0); Mean Platelet Volume 7.4 fL (7.4-10.4); Platelet Count 244 thou/uL (130-400); RBC Distribution Width 14.3 % (11.5-14.5); Red Blood Cell (RBC) Count 4.85 mill/uL (4.70-6.10); White Blood Cell (WBC) Count 8.8 thou/uL (4.8-10.8)
[2019-02-16 11:37] LABS: Band 2 % (5-11); Eosinophils 1 % (0-10); Lymphocytes 19 % (21-51); MDiff Complete? YES; Monocytes 7 % (0-10); Neutrophil 71 % (42-75); RBC Morphology Normal
[2019-02-16 11:39] LABS: Anion Gap 11 mmol/L (10-20); BUN (Urea Nitrogen) 11 mg/dL (8.4-25.7); Calc. Creatinine Clearance 83 mL/min (70-130); Calcium 9.2 mg/dL (7.8-10.44); Carbon Dioxide 25 mmol/L (23-31); Chloride 103 mmol/L (98-107); Estimated GFR-MDRD Greater than 90; Glucose 108 mg/dL (83-110); Potassium 4.1 mmol/L (3.5-5.1); Sodium 135 mmol/L (136-145)
[2019-02-16] MEDS: Enoxaparin Sodium 40 MG/0.4 ML SYRINGE SC SCH (12:41)
[2019-02-16] MEDS ORDERED: Bisacodyl 10 MG SUPP PR PRN (12:57)
--- NOTE | 2019-02-16 13:00 | PDOC.PN ---
- Subjective Encounter Start Date: 02/16/19 Encounter Start Time: 12:58 Subjective: admitted with AMS and weakness after a fall in the long-term. -: Still weak and barely verbalizing. -: Get antibiotics for UTI. Remained afebrile - Objective Resuscitation Status - Order Detail: 02/09/19 15:27 Resuscitation Status Routine Resuscitation Status: FULL: Full Resuscitation Vital Signs & Weight: Vital Signs (12 hours) Temp Pulse Pulse Pulse Resp BP BP 02/16/19 12:39 98.3 F 78 18 02/16/19 11:10 84 81 108/78 118/79 02/16/19 07:44 99.7 F H 96 18 02/16/19 04:50 97.4 F L 85 16 BP Pulse Ox 02/16/19 12:39 107/71 97 02/16/19 11:10 02/16/19 07:44 112/75 96 02/16/19 04:50 108/73 94 L Weight Weight 156 lb 12.8 oz I&O: 02/15/19 02/16/19 02/17/19 06:59 06:59 06:59 Intake Total 160 820 Balance 160 820 Result Diagrams: 02/16/19 11:08 02/16/19 11:08 Phys Exam - Physical Examination Constitutional: NAD HEENT: moist MMs Neck: supple Respiratory: no rales, no rhonchi fair air entry bilaterally Cardiovascular: RRR Gastrointestinal: soft, non-tender, positive bowel sounds Musculoskeletal: no edema awake but barely verbalizing. Dx/Plan (1) Acute encephalopathy Code(s): G93.40 - ENCEPHALOPATHY, UNSPECIFIED Status: Acute (2) History of neurosyphilis Code(s): Z86.61 - PERSONAL HISTORY OF INFECTIONS OF THE CENTRAL NERVOUS SYSTEM Status: Acute (3) Physical deconditioning Code(s): R53.81 - OTHER MALAISE Status: Acute (4) UTI (urinary tract infection) Status: Acute Qualifiers: Urinary tract infection type: acute cystitis Hematuria presence: without hematuria Qualified Code(s): N30.00 - Acute cystitis without hematuria (5) BPH (benign prostatic hyperplasia) Code(s): N40.0 - BENIGN PROSTATIC HYPERPLASIA WITHOUT LOWER URINRY TRACT SYMP Status: Chronic Qualifiers: Lower urinary tract symptom presence: unspecified whether lower urinary tract symptoms present Qualified Code(s): N40.0 - Benign prostatic hyperplasia without lower urinary tract symptoms (6) Dementia Code(s): F03.90 - UNSPECIFIED DEMENTIA WITHOUT BEHAVIORAL DISTURBANCE Status: Chronic Qualifiers: Dementia type: Parkinson's disease Dementia behavioral disturbance: without behavioral disturbance Qualified Code(s): G20 - Parkinson's disease; F02.80 - Dementia in other diseases classified elsewhere without behavioral disturbance (7) HTN (hypertension) Code(s): I10 - ESSENTIAL (PRIMARY) HYPERTENSION Status: Chronic Qualifiers: Hypertension type: essential hypertension Qualified Code(s): I10 - Essential (primary) hypertension (8) Hypokalemia Code(s): E87.6 - HYPOKALEMIA Status: Acute (9) Weakness generalized Code(s): R53.1 - WEAKNESS Status: Acute (10) GERD (gastroesophageal reflux disease) Code(s): K21.9 - GASTRO-ESOPHAGEAL REFLUX DISEASE WITHOUT ESOPHAGITIS Status: Chronic Qualifiers: Esophagitis presence: esophagitis presence not specified Qualified Code(s) : K21.9 - Gastro-esophageal reflux disease without esophagitis - Plan Continue current antibiotic. -: Awaiting sphylis serology. CSF contemplated. -: PT/OT to continue -: Continue other current medications. * .
[2019-02-16 14:22] LABS: Syphilis Antibody Index 17.68 S/CO (<1.00 Non-Reactive)
[2019-02-16] MEDS: Atorvastatin Calcium 10 MG TAB PO SCH (20:53)
[2019-02-16 23:42] LABS: Syphilis Antibody INDETERMINATE (Nonreactive)
[2019-02-17] MEDS: Ciprofloxacin 500 MG TAB PO SCH ×2 (05:59→20:02)
[2019-02-17] MEDS: Docusate 100 MG CAP PO SCH (08:44)
[2019-02-17] MEDS: Enoxaparin Sodium 40 MG/0.4 ML SYRINGE SC SCH (08:44)
[2019-02-17] MEDS: Finasteride 5 MG TAB PO SCH (08:44)
[2019-02-17] MEDS: Carbidopa/Levodopa 25-100 mg Tablet PO SCH ×3 (08:44→20:02)
[2019-02-17] MEDS: Tamsulosin HCl 0.4 MG CAP PO SCH ×2 (08:44→20:02)
[2019-02-17] MEDS: Polyethylene Glycol 3350 17 GM Packet PO SCH (08:45)
--- NOTE | 2019-02-17 09:24 | PDOC.PN ---
- Subjective Encounter Start Date: 02/17/19 Encounter Start Time: 09:22 Subjective: No new problem. -: Still barely verbalizing. - Objective Resuscitation Status - Order Detail: 02/09/19 15:27 Resuscitation Status Routine Resuscitation Status: FULL: Full Resuscitation Vital Signs & Weight: Vital Signs (12 hours) Temp Pulse Resp BP Pulse Ox 02/17/19 07:15 98.2 F 93 16 125/79 95 02/17/19 04:34 97.9 F 82 16 119/71 94 L Weight Weight 156 lb 12.8 oz I&O: 02/16/19 02/17/19 02/18/19 06:59 06:59 06:59 Intake Total 820 650 Balance 820 650 Result Diagrams: 02/16/19 11:08 02/16/19 11:08 Phys Exam - Physical Examination Constitutional: NAD HEENT: moist MMs Neck: no JVD, supple Respiratory: no rales, no rhonchi fair air entry bilaterally Cardiovascular: RRR Gastrointestinal: soft, no distention, positive bowel sounds Musculoskeletal: no edema, pulses present moves all limbs. tremor + Awake but barely verbalizing. Saying few words. Oriented to person at least Dx/Plan (1) Acute encephalopathy Code(s): G93.40 - ENCEPHALOPATHY, UNSPECIFIED Status: Acute Comment: Most likely due to UTI. With more words today (2) History of neurosyphilis Code(s): Z86.61 - PERSONAL HISTORY OF INFECTIONS OF THE CENTRAL NERVOUS SYSTEM Status: Acute Comment: RPR was indeterminate. (3) Physical deconditioning Code(s): R53.81 - OTHER MALAISE Status: Acute (4) UTI (urinary tract infection) Status: Acute Qualifiers: Urinary tract infection type: acute cystitis Hematuria presence: without hematuria Qualified Code(s): N30.00 - Acute cystitis without hematuria (5) BPH (benign prostatic hyperplasia) Code(s): N40.0 - BENIGN PROSTATIC HYPERPLASIA WITHOUT LOWER URINRY TRACT SYMP Status: Chronic Qualifiers: Lower urinary tract symptom presence: unspecified whether lower urinary tract symptoms present Qualified Code(s): N40.0 - Benign prostatic hyperplasia without lower urinary tract symptoms (6) Dementia Code(s): F03.90 - UNSPECIFIED DEMENTIA WITHOUT BEHAVIORAL DISTURBANCE Status: Chronic Qualifiers: Dementia type: Parkinson's disease Dementia behavioral disturbance: without behavioral disturbance Qualified Code(s): G20 - Parkinson's disease; F02.80 - Dementia in other diseases classified elsewhere without behavioral disturbance (7) HTN (hypertension) Code(s): I10 - ESSENTIAL (PRIMARY) HYPERTENSION Status: Chronic Qualifiers: Hypertension type: essential hypertension Qualified Code(s): I10 - Essential (primary) hypertension (8) Hypokalemia Code(s): E87.6 - HYPOKALEMIA Status: Acute (9) Weakness generalized Code(s): R53.1 - WEAKNESS Status: Acute (10) GERD (gastroesophageal reflux disease) Code(s): K21.9 - GASTRO-ESOPHAGEAL REFLUX DISEASE WITHOUT ESOPHAGITIS Status: Chronic Qualifiers: Esophagitis presence: esophagitis presence not specified Qualified Code(s) : K21.9 - Gastro-esophageal reflux disease without esophagitis - Plan Continue antibiotic for UTI -: PT/OT to continue. -: awaiting ID reevaluation Re: indeterminate RPR * .
[2019-02-17 13:44] VITALS: BMI 25.2
--- NOTE | 2019-02-17 14:57 | PQF ---
DATE: 02-17-19 ATTN: DR. EHSAN FLORES Please exercise your independent, professional judgment in responding to the clarification form. Clinical indicators are provided on the bottom of this form for your review Please check appropriate box(s): [ ] Encephalopathy: Type: [ x ] Acute [ ] Subacute [ ] Chronic Etiology: [ x ] Metabolic [ ] Toxic [x ] Septic [ ] Transient Alteration of Awareness [ ] Other diagnosis [ ] Unable to determine In addition, please specify: Present on Admission (POA): [x ] Yes [ ] No [ ] Unable to determine For continuity of documentation, please document condition throughout progress notes and discharge summary. Thank You. CLINICAL INDICATORS - SIGNS / SYMPTOMS / LABS ER DX: SEPSIS WITH URINARY SOURCE, FALL, UTI H&P 02-09-19: UTI, CONSISTENT WITH SEPSIS FROM UTI PN DR. FLORES 02-17-19: ACUTE ENCEPHALOPATHY, MOST LIKELY DUE TO UTI RISK FACTORS: H&P 02-09-19: UTI, CONSISTENT WITH SEPSIS FROM UTI TREATMENTS: ER: IVF NS, CEFTRIAXONE IV (This form is maintained as a part of the permanent medical record) 2014 [email or web address] All Rights Reserved ALEAH [email or web address] Office: [phone] [facility]
[2019-02-17] MEDS: Atorvastatin Calcium 10 MG TAB PO SCH (20:02)
[2019-02-18] MEDS: Ciprofloxacin 500 MG TAB PO SCH ×2 (05:06→22:00)
[2019-02-18] MEDS: Carbidopa/Levodopa 25-100 mg Tablet PO SCH ×3 (08:14→22:00)
[2019-02-18] MEDS: Enoxaparin Sodium 40 MG/0.4 ML SYRINGE SC SCH (08:14)
[2019-02-18] MEDS: Finasteride 5 MG TAB PO SCH (08:17)
[2019-02-18] MEDS: Docusate 100 MG CAP PO SCH (08:18)
[2019-02-18] MEDS: Tamsulosin HCl 0.4 MG CAP PO SCH ×2 (08:32→22:00)
--- NOTE | 2019-02-18 09:04 | PDOC.PN ---
- Subjective Encounter Start Date: 02/18/19 Encounter Start Time: 09:02 Subjective: Talking more. No new problem. - Objective Resuscitation Status - Order Detail: 02/09/19 15:27 Resuscitation Status Routine Resuscitation Status: FULL: Full Resuscitation Vital Signs & Weight: Vital Signs (12 hours) Temp Pulse Resp BP BP Pulse Ox 02/18/19 08:11 98.2 F 85 18 105/67 100 02/18/19 04:16 98.8 F 81 18 115/72 95 Weight Admit Weight 174 lb 4.8 oz Weight 156 lb 12.8 oz I&O: 02/17/19 02/18/19 02/19/19 06:59 06:59 06:59 Intake Total 650 480 Balance 650 480 Result Diagrams: 02/16/19 11:08 02/16/19 11:08 Phys Exam - Physical Examination Constitutional: NAD afebrile, no distress HEENT: PERRLA, moist MMs Neck: no JVD, supple Respiratory: no wheezing, no rhonchi fair air entry bilaterally Cardiovascular: RRR Gastrointestinal: soft, no distention, positive bowel sounds Musculoskeletal: no edema conscious and alert, oriented to self at least. Speechb is improving with more audible words Dx/Plan (1) Sepsis Code(s): A41.9 - SEPSIS, UNSPECIFIED ORGANISM Status: Acute Qualifiers: Sepsis type: sepsis due to unspecified organism Qualified Code(s): A41.9 - Sepsis, unspecified organism Comment: Present on admission. (2) Acute encephalopathy Code(s): G93.40 - ENCEPHALOPATHY, UNSPECIFIED Status: Acute Comment: Present on admission. Due to sepsis and UTI. Improving. (3) History of neurosyphilis Code(s): Z86.61 - PERSONAL HISTORY OF INFECTIONS OF THE CENTRAL NERVOUS SYSTEM Status: Acute Comment: RPR was indeterminate. (4) Physical deconditioning Code(s): R53.81 - OTHER MALAISE Status: Acute (5) UTI (urinary tract infection) Status: Acute Qualifiers: Urinary tract infection type: acute cystitis Hematuria presence: without hematuria Qualified Code(s): N30.00 - Acute cystitis without hematuria (6) BPH (benign prostatic hyperplasia) Code(s): N40.0 - BENIGN PROSTATIC HYPERPLASIA WITHOUT LOWER URINRY TRACT SYMP Status: Chronic Qualifiers: Lower urinary tract symptom presence: unspecified whether lower urinary tract symptoms present Qualified Code(s): N40.0 - Benign prostatic hyperplasia without lower urinary tract symptoms (7) Dementia Code(s): F03.90 - UNSPECIFIED DEMENTIA WITHOUT BEHAVIORAL DISTURBANCE Status: Chronic Qualifiers: Dementia type: Parkinson's disease Dementia behavioral disturbance: without behavioral disturbance Qualified Code(s): G20 - Parkinson's disease; F02.80 - Dementia in other diseases classified elsewhere without behavioral disturbance (8) HTN (hypertension) Code(s): I10 - ESSENTIAL (PRIMARY) HYPERTENSION Status: Chronic Qualifiers: Hypertension type: essential hypertension Qualified Code(s): I10 - Essential (primary) hypertension (9) Hypokalemia Code(s): E87.6 - HYPOKALEMIA Status: Acute (10) Weakness generalized Code(s): R53.1 - WEAKNESS Status: Acute (11) GERD (gastroesophageal reflux disease) Code(s): K21.9 - GASTRO-ESOPHAGEAL REFLUX DISEASE WITHOUT ESOPHAGITIS Status: Chronic Qualifiers: Esophagitis presence: esophagitis presence not specified Qualified Code(s) : K21.9 - Gastro-esophageal reflux disease without esophagitis - Plan Continue antibiotic and supportive care. -: Continue regular medication -: PT/OT to continue. -: [facility] be [facility]. * .
[2019-02-18] MEDS: Polyethylene Glycol 3350 17 GM Packet PO SCH (09:31)
[2019-02-18] MEDS: Atorvastatin Calcium 10 MG TAB PO SCH (22:00)
[2019-02-19] MEDS: Ciprofloxacin 500 MG TAB PO SCH ×2 (05:33→20:55)
--- NOTE | 2019-02-19 09:05 | PDOC.PN ---
- Subjective Encounter Start Date: 02/19/19 Encounter Start Time: 09:04 Subjective: No new problem -: Still with minimal and low volume speech -: No fever, vomiting or diarrhea. - Objective Resuscitation Status - Order Detail: 02/09/19 15:27 Resuscitation Status Routine Resuscitation Status: FULL: Full Resuscitation Vital Signs & Weight: Vital Signs (12 hours) Temp Pulse Resp BP Pulse Ox 02/19/19 03:22 99.0 F 85 17 101/62 96 Weight Admit Weight 174 lb 4.8 oz Weight 156 lb 12.8 oz I&O: 02/18/19 02/19/19 02/20/19 06:59 06:59 06:59 Intake Total 480 920 Balance 480 920 Result Diagrams: 02/16/19 11:08 02/16/19 11:08 Phys Exam - Physical Examination Constitutional: NAD afebrile,anicteric and acyanotic. No distress HEENT: PERRLA, moist MMs Neck: no JVD, supple Respiratory: no wheezing, no rales, no rhonchi, clear to auscultation bilateral Cardiovascular: RRR Gastrointestinal: soft, non-tender, no distention, positive bowel sounds Musculoskeletal: no edema Neurological: non-focal, moves all 4 limbs tremor + low volume sparse speech Dx/Plan (1) Sepsis Code(s): A41.9 - SEPSIS, UNSPECIFIED ORGANISM Status: Acute Qualifiers: Sepsis type: sepsis due to unspecified organism Qualified Code(s): A41.9 - Sepsis, unspecified organism Comment: Present on admission. Resolved. (2) Acute encephalopathy Code(s): G93.40 - ENCEPHALOPATHY, UNSPECIFIED Status: Acute Comment: Present on admission. Acute metabolic encephalopathy due to sepsis and UTI. Persistent despite adequate UTI treatment.?other etiologies like complication of parkinson like apathy and abulia (3) History of neurosyphilis Code(s): Z86.61 - PERSONAL HISTORY OF INFECTIONS OF THE CENTRAL NERVOUS SYSTEM Status: Acute Comment: RPR was indeterminate. (4) Physical deconditioning Code(s): R53.81 - OTHER MALAISE Status: Acute (5) UTI (urinary tract infection) Status: Acute Qualifiers: Urinary tract infection type: acute cystitis Hematuria presence: without hematuria Qualified Code(s): N30.00 - Acute cystitis without hematuria (6) BPH (benign prostatic hyperplasia) Code(s): N40.0 - BENIGN PROSTATIC HYPERPLASIA WITHOUT LOWER URINRY TRACT SYMP Status: Chronic Qualifiers: Lower urinary tract symptom presence: unspecified whether lower urinary tract symptoms present Qualified Code(s): N40.0 - Benign prostatic hyperplasia without lower urinary tract symptoms (7) Dementia Code(s): F03.90 - UNSPECIFIED DEMENTIA WITHOUT BEHAVIORAL DISTURBANCE Status: Chronic Qualifiers: Dementia type: Parkinson's disease Dementia behavioral disturbance: without behavioral disturbance Qualified Code(s): G20 - Parkinson's disease; F02.80 - Dementia in other diseases classified elsewhere without behavioral disturbance (8) HTN (hypertension) Code(s): I10 - ESSENTIAL (PRIMARY) HYPERTENSION Status: Chronic Qualifiers: Hypertension type: essential hypertension Qualified Code(s): I10 - Essential (primary) hypertension (9) Hypokalemia Code(s): E87.6 - HYPOKALEMIA Status: Acute (10) Weakness generalized Code(s): R53.1 - WEAKNESS Status: Acute (11) GERD (gastroesophageal reflux disease) Code(s): K21.9 - GASTRO-ESOPHAGEAL REFLUX DISEASE WITHOUT ESOPHAGITIS Status: Chronic Qualifiers: Esophagitis presence: esophagitis presence not specified Qualified Code(s) : K21.9 - Gastro-esophageal reflux disease without esophagitis - Plan Continue current treat. -: Consult Neurology due to persistence of encephalopathy. -: Repeat CBC, CMP and magnesium * .
[2019-02-19] MEDS ORDERED: Nystatin Powder 15 GM BOT TOP PRN (09:12)
[2019-02-19] MEDS: Enoxaparin Sodium 40 MG/0.4 ML SYRINGE SC SCH (09:13)
[2019-02-19] MEDS: Tamsulosin HCl 0.4 MG CAP PO SCH ×2 (09:13→20:55)
[2019-02-19] MEDS: Docusate 100 MG CAP PO SCH (09:13)
[2019-02-19] MEDS: Polyethylene Glycol 3350 17 GM Packet PO SCH (09:13)
[2019-02-19] MEDS: Carbidopa/Levodopa 25-100 mg Tablet PO SCH ×3 (09:13→20:55)
[2019-02-19] MEDS: Finasteride 5 MG TAB PO SCH (09:13)
[2019-02-19 09:36] LABS: #Eosinphils 0.1 thou/uL (0.0-0.7); #Lymphocytes 1.5 thou/uL (1.20-3.40); #Monocytes 0.5 thou/uL (0.11-0.59); %Basophils 0.3 % (0.0-1.0); %Eosinophils 0.6 % (0.0-10.0); %Lymphocytes 14.6 % (21.0-51.0); %Neutrophils 79.5 % (42.0-75.0); Hemoglobin 14.8 g/dL (14.0-18.0); Mean Corpuscular HGB CONC 32.3 g/dL (32.0-36.0); Mean Corpuscular Hemoglobin 29.1 pg (27.0-31.0); Mean Corpuscular Volume 89.9 fL (78.0-98.0); Mean Platelet Volume 7.4 fL (7.4-10.4); Platelet Count 319 thou/uL (130-400); Red Blood Cell (RBC) Count 5.09 mill/uL (4.70-6.10)
[2019-02-19 09:55] LABS: ALT (SGPT) 32 U/L (8-55); AST (SGOT) 27 U/L (5-34); Albumin 3.8 g/dL (3.4-4.8); Alkaline Phosphatase 59 U/L (40-150); Anion Gap 14 mmol/L (10-20); BUN (Urea Nitrogen) 10 mg/dL (8.4-25.7); Bilirubin, Total 0.4 mg/dL (0.2-1.2); Calc. Creatinine Clearance 80 mL/min (70-130); Calcium 9.6 mg/dL (7.8-10.44); Carbon Dioxide 23 mmol/L (23-31); Chloride 101 mmol/L (98-107); Estimated GFR-MDRD Greater than 90; Glucose 122 mg/dL (83-110); Magnesium 2.1 mg/dL (1.6-2.6); Potassium 4.2 mmol/L (3.5-5.1); Protein, Total 7.8 g/dL (5.8-8.1); Sodium 134 mmol/L (136-145)
--- NOTE | 2019-02-19 11:53 | EKG ---
Test Reason : AMS Blood Pressure : / mmHG Vent. Rate : 098 BPM Atrial Rate : 098 BPM P-R Int : 212 ms QRS Dur : 086 ms QT Int : 364 ms P-R-T Axes : 051 -36 051 degrees QTc Int : 464 ms Sinus rhythm with 1st degree A-V block Left axis deviation Moderate voltage criteria for LVH, may be normal variant Abnormal ECG Confirmed by TONE Parham, TONY ([id number]), marine electrician helper ANJEL CANCINO ([id number]) on 02/19/2019 11:53:30 AM Referred By: TONE Confirmed By:TONY WAYNE M.D.
[2019-02-19] MEDS: Atorvastatin Calcium 10 MG TAB PO SCH (20:55)
[2019-02-20] MEDS: Ciprofloxacin 500 MG TAB PO SCH ×2 (06:00→20:50)
[2019-02-20] MEDS: Tamsulosin HCl 0.4 MG CAP PO SCH ×2 (10:38→20:50)
[2019-02-20] MEDS: Polyethylene Glycol 3350 17 GM Packet PO SCH (10:38)
[2019-02-20] MEDS: Enoxaparin Sodium 40 MG/0.4 ML SYRINGE SC SCH (10:38)
[2019-02-20] MEDS: Finasteride 5 MG TAB PO SCH (10:38)
[2019-02-20] MEDS: Carbidopa/Levodopa 25-100 mg Tablet PO SCH ×3 (10:38→20:49)
[2019-02-20] MEDS: Docusate 100 MG CAP PO SCH (10:38)
--- NOTE | 2019-02-20 12:56 | PDOC.PN ---
- Subjective Encounter Start Date: 02/20/19 Encounter Start Time: 09:54 Subjective: No new problem -: Improving but very slowly. - Objective Resuscitation Status - Order Detail: 02/09/19 15:27 Resuscitation Status Routine Resuscitation Status: FULL: Full Resuscitation Vital Signs & Weight: Vital Signs (12 hours) Temp Pulse Resp BP Pulse Ox 02/20/19 10:47 97.9 F 88 16 127/84 98 02/20/19 04:00 98.4 F 88 18 109/72 94 L Weight Admit Weight 174 lb 4.8 oz Weight 156 lb 12.8 oz I&O: 02/19/19 02/20/19 02/21/19 06:59 06:59 06:59 Intake Total 920 808 Balance 920 808 Result Diagrams: 02/19/19 09:21 02/19/19 09:21 Phys Exam - Physical Examination Constitutional: NAD HEENT: PERRLA, moist MMs Neck: no JVD, supple Respiratory: no wheezing, no rales, no rhonchi, clear to auscultation bilateral Cardiovascular: RRR, no significant murmur Gastrointestinal: soft, non-tender, no distention, positive bowel sounds Musculoskeletal: no edema, pulses present Neurological: non-focal, moves all 4 limbs obeying command. Low volume voice and sparse speech persists Dx/Plan (1) Acute encephalopathy Code(s): G93.40 - ENCEPHALOPATHY, UNSPECIFIED Status: Acute Comment: Present on admission. Acute metabolic encephalopathy due to sepsis and UTI. Persistent despite adequate UTI treatment.?other etiologies like complication of parkinson like apathy and abulia (2) Sepsis Code(s): A41.9 - SEPSIS, UNSPECIFIED ORGANISM Status: Acute Qualifiers: Sepsis type: sepsis due to unspecified organism Qualified Code(s): A41.9 - Sepsis, unspecified organism Comment: Present on admission. Resolved. (3) History of neurosyphilis Code(s): Z86.61 - PERSONAL HISTORY OF INFECTIONS OF THE CENTRAL NERVOUS SYSTEM Status: Acute Comment: RPR was non reactive but treponema IGG/IGM was indeterminate. Discussed with ID no further evaluation needed. (4) Physical deconditioning Code(s): R53.81 - OTHER MALAISE Status: Acute (5) UTI (urinary tract infection) Status: Acute Qualifiers: Urinary tract infection type: acute cystitis Hematuria presence: without hematuria Qualified Code(s): N30.00 - Acute cystitis without hematuria (6) BPH (benign prostatic hyperplasia) Code(s): N40.0 - BENIGN PROSTATIC HYPERPLASIA WITHOUT LOWER URINRY TRACT SYMP Status: Chronic Qualifiers: Lower urinary tract symptom presence: unspecified whether lower urinary tract symptoms present Qualified Code(s): N40.0 - Benign prostatic hyperplasia without lower urinary tract symptoms (7) Dementia Code(s): F03.90 - UNSPECIFIED DEMENTIA WITHOUT BEHAVIORAL DISTURBANCE Status: Chronic Qualifiers: Dementia type: Parkinson's disease Dementia behavioral disturbance: without behavioral disturbance Qualified Code(s): G20 - Parkinson's disease; F02.80 - Dementia in other diseases classified elsewhere without behavioral disturbance (8) HTN (hypertension) Code(s): I10 - ESSENTIAL (PRIMARY) HYPERTENSION Status: Chronic Qualifiers: Hypertension type: essential hypertension Qualified Code(s): I10 - Essential (primary) hypertension (9) Hypokalemia Code(s): E87.6 - HYPOKALEMIA Status: Acute (10) Weakness generalized Code(s): R53.1 - WEAKNESS Status: Acute (11) GERD (gastroesophageal reflux disease) Code(s): K21.9 - GASTRO-ESOPHAGEAL REFLUX DISEASE WITHOUT ESOPHAGITIS Status: Chronic Qualifiers: Esophagitis presence: esophagitis presence not specified Qualified Code(s) : K21.9 - Gastro-esophageal reflux disease without esophagitis - Plan Continue antibiotic. -: Continue supportive care. -: Awaiting Neurology input. -: Get repeat labs in the am. * .
[2019-02-20] MEDS: Acetaminophen 325 MG TAB PO PRN (18:39)
[2019-02-20] MEDS: Atorvastatin Calcium 10 MG TAB PO SCH (20:49)
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
[2019-02-21] MEDS: Ciprofloxacin 500 MG TAB PO SCH (05:56)
[2019-02-21] MEDS: Carbidopa/Levodopa 25-100 mg Tablet PO SCH ×2 (09:52→15:18)
[2019-02-21] MEDS: Enoxaparin Sodium 40 MG/0.4 ML SYRINGE SC SCH (09:52)
[2019-02-21] MEDS: Polyethylene Glycol 3350 17 GM Packet PO SCH (09:52)
[2019-02-21] MEDS: Finasteride 5 MG TAB PO SCH (09:53)
[2019-02-21] MEDS: Docusate 100 MG CAP PO SCH (09:53)
[2019-02-21] MEDS: Tamsulosin HCl 0.4 MG CAP PO SCH (09:53)
--- NOTE | 2019-02-21 14:13 | DIS ---
DATE OF ADMISSION: 02/09/2019 DATE OF DISCHARGE: 02/21/2019 DISCHARGE DIAGNOSES: 1. Sepsis. 2. Complicated urinary tract infection. 3. Acute metabolic encephalopathy due to sepsis and urinary tract infection. 4. Physical deconditioning. 5. Hypokalemia. 6. Gastroesophageal reflux disease. 7. Benign prostatic enlargement. 8. Urinary bladder wall thickening. 9. Hypertension. 10. Dementia. 11. Parkinson disease. 12. History of neurosyphilis. CONSULTS: 1. Urology. 2. Neurology. 3. Infectious Disease. HOSPITAL COURSE: A 73-year-old male with known history of Parkinson disease and dementia, prison resident, who was [facility] in from the prison after a fall associated with generalized weakness and altered mental status of being nonverbal. On presentation, the patient had white count of 17.3, and also was febrile and tachycardic consistent with sepsis. Urinalysis was positive for nitrite and leukocyte esterase and also with more than 50 white blood loss count. Further evaluation with CT scan of the abdomen and pelvis showed marked abnormal thickening of the contracted urinary bladder, which was thought to be either related to infectious or inflammatory etiology or neoplasm. The patient was started on broad-spectrum antibiotic therapy as well as IV fluid and other supportive care with improvement. Urology saw the patient because of thickened urinary bladder and was felt that it is most likely related to BPH, but outpatient cystoscopy is indicated, hence, outpatient followup recommended. The patient also was started on Flomax and finasteride for BPH. Urine culture was, however, no growth. Mental status remained unchanged. Hence, there was a concern for other possibilities including apathy and abulia from Parkinson, hence, the patient was seen by neurologist. Also, the patient was seen by Infectious Diseases giving negative cultures to help with antibiotic therapy in view of the persistent encephalopathy. Infectious Disease recommended ruling out neurosyphilis giving prior history of neurosyphilis, hence the patient was evaluated further with RPR and treponema immunoglobulin G and M, these were however unremarkable. Neurologist recommended increasing the dose of carbidopa to see if that will help. The patient made some improvement, though, this was read as very slow, such that at the time of discharge, he was talking some, though not yet back to baseline but was still unable to ambulate. He is therefore discharged to intermediate facility for further restorative therapy. Of note, the patient completed antibiotic therapy during this hospitalization. PHYSICAL EXAMINATION: VITAL SIGNS: Temperature 97.8, pulse 88, respiratory rate 20, SpO2 of 95% on room air, and blood pressure is 110/75. GENERAL: Elderly male, in no distress. Afebrile. Anicteric. Acyanotic. HEENT: Normocephalic, atraumatic. Pupils are reacting to light. CARDIOVASCULAR: Regular rhythm and rate. Normal heart sounds one and two. RESPIRATORY: Good air entry bilaterally with no crackle or rhonchi. GI: Full, soft, nontender, nondistended with normal bowel sounds. EXTREMITIES: Grossly normal looking, atraumatic with no edema or erythema. Flexion deformity of left wrist noted. NEUROLOGIC: Awake and conversational. Obeys commands. The patient is making some speech, but voice is low. He moves all extremities, but with decreased power in the lower extremities. CONDITION AT DISCHARGE: Improved. FOLLOWUP: 1. The patient is to follow with PCP within 1 week of discharge. 2. He also to follow up with urologist, Dr. Nicci Knight in 2 to 3 weeks for evaluation and possible cystoscopy. DISCHARGE MEDICATIONS: 1. Lipitor 10 mg p.o. daily. 2. Carbidopa 1 tablet p.o. t.i.d. 3. Docusate two tablets p.o. daily. 4. Ergocalciferol 5000 units one capsule p.o. 5. Lactulose 30 g p.o. daily p.r.n. 6. Magnesium hydroxide-aluminum 30 mL t.i.d. p.r.n. 7. Milk of magnesia as needed. 8. Midodrine 5 mg p.o. t.i.d. p.r.n. for systolic blood pressure less than 100. 9. Omeprazole 40 mg p.o. daily. 10. MiraLAX 17 g p.o. daily. 11. Trazodone 50 mg p.o. daily. 12. Finasteride 5 mg p.o. daily. 13. Metoprolol succinate 25 mg p.o. daily. 14. Nystatin topical powder one application b.i.d. at the groin area. 15. Flomax 0.4 mg p.o. b.i.d. Discharge took more than 40 minutes. Job ID: [id number]
[2019-02-21 15:23] VITALS: TEMP 97.9
[2019-02-21 15:35] VITALS: BP 94/67
== END 2019-02-21 19:08 | DRG 871 ==
LOC: ERS 11:39 → 2SE 15:10 → 2NO 02-15 00:34
PROVIDERS: ADMIT Internal Medicine; ATTEND Internal Medicine
DX: A41.9 Sepsis, unspecified organism (principal); G93.41 Metabolic encephalopathy; N39.0 Urinary tract infection, site not specified; I47.1 Supraventricular tachycardia; G20 Parkinson's disease; F02.80 Dementia in other diseases classified elsewhere, unspecified severity, without behavioral disturbance, psychotic disturbance, mood disturbance, and anxiety; I10 Essential (primary) hypertension; N40.0 Benign prostatic hyperplasia without lower urinary tract symptoms; K21.9 Gastro-esophageal reflux disease without esophagitis; E78.00 Pure hypercholesterolemia, unspecified; E87.5 Hyperkalemia; Z79.899 Other long term (current) drug therapy
CPT/HCPCS: 36415; 51701; 70450; 71045; 72170; 74177; 80048; 80053; 80202; 81003; 81015; 82550; 83605; 83735; 84443; 84484; 85025; 86593; 86780; 86803; 87040; 87045; 87046; 87086; 87389; 87449; 87899; 93005; 96361; 96365; J0696; J1650; J2185; J3370; J7050; Q0162; Q9966

== ENCOUNTER 2019-02-21 23:20 | Emergency (ER) | payer MEDICARE, MEDICAID ==
[2019-02-22 00:30] LABS: #Eosinphils 0.1 thou/uL (0.0-0.7); #Lymphocytes 1.6 thou/uL (1.20-3.40); #Monocytes 0.6 thou/uL (0.11-0.59); #Neutrophils 5.9 thou/uL (1.40-6.50); %Basophils 0.2 % (0.0-1.0); %Eosinophils 1.6 % (0.0-10.0); %Lymphocytes 19.4 % (21.0-51.0); %Monocytes 7.3 % (0.0-10.0); %Neutrophils 71.5 % (42.0-75.0); Hemoglobin 14.7 g/dL (14.0-18.0); Mean Corpuscular HGB CONC 32.4 g/dL (32.0-36.0); Mean Corpuscular Hemoglobin 28.9 pg (27.0-31.0); Mean Corpuscular Volume 89.3 fL (78.0-98.0); Mean Platelet Volume 7.2 fL (7.4-10.4); Platelet Count 380 thou/uL (130-400); RBC Distribution Width 13.9 % (11.5-14.5); Red Blood Cell (RBC) Count 5.07 mill/uL (4.70-6.10); White Blood Cell (WBC) Count 8.2 thou/uL (4.8-10.8)
[2019-02-22 00:53] LABS: ALT (SGPT) 30 U/L (8-55); AST (SGOT) 29 U/L (5-34); Albumin 3.8 g/dL (3.4-4.8); Alkaline Phosphatase 59 U/L (40-150); Anion Gap 16 mmol/L (10-20); BUN (Urea Nitrogen) 12 mg/dL (8.4-25.7); Bilirubin, Total 0.4 mg/dL (0.2-1.2); Calc. Creatinine Clearance 0 mL/min (70-130); Calcium 9.6 mg/dL (7.8-10.44); Carbon Dioxide 22 mmol/L (23-31); Chloride 99 mmol/L (98-107); Estimated GFR-MDRD Greater than 90; Globulin 4.5 g/dL (2.4-3.5); Glucose 99 mg/dL (83-110); Potassium 4.8 mmol/L (3.5-5.1); Protein, Total 8.3 g/dL (5.8-8.1); Sodium 132 mmol/L (136-145)
[2019-02-22 02:17] LABS: Bilirubin Negative (Negative); Blood, Urine Large (Negative); Glucose, Urine (Dipstick) Negative (Negative); Leukocyte Small (Negative); Nitrite Negative (Negative); Protein, Urine (Dipstick) Negative (Neg-Trace); Specific Gravity, Urine 1.007 (1.002-1.036); Urobilinogen 0.2 mg/dL (0.2-1.0); pH, Urine 6.5 (5.0-9.0)
[2019-02-22 02:21] LABS: Bacteria/HPF None Seen HPF (None Seen); Hyaline Casts/LPF 0-3 HYALINE CAST LPF (0-3 Hyaline); Pathc Cast-AUWi Flag 0.54 (0-2.49); RBC/HPF GREATER THAN 50-TNTC HPF (0-3); Squamous Epithelial 0-3 HPF (0-3)
[2019-02-22 02:22] LABS: Clarity Clear (Clear)
[2019-02-22] MEDS ORDERED: Acetaminophen 325 MG TAB ONE (03:34)
--- NOTE | 2019-02-22 07:34 | CT ---
PRELIMINARY REPORT: CT Head Without Contrast EXAM DATE/TIME: 02/22/2019 12:37 AM CLINICAL HISTORY: 73 years old, male; Injury or trauma; Fall; Initial encounter; Blunt trauma (contusions or hematomas) ; Patient HX: Per [facility] PT had an unwitnessed fall today. PT seen here 12 days ago for AMS and sepsis. Tn paperwork states he has AMS. PT tells me his neck hurts. Cannot tell me if he had loc. PT has HX of parkinson's disease. TECHNIQUE: Imaging protocol: Axial computed tomography images of the head/brain without contrast. COMPARISON: No relevant prior studies available. FINDINGS: Brain: Scattered areas of hypoattenuation, likely chronic small vessel ischemic change, demyelination, or gliosis. No mass, hemorrhage, or acute infarction. Ventricles: Normal. Bones/joints: Normal. Sinuses: Normal as visualized. Mastoid air cells: Normal as visualized. Soft tissues: Unremarkable. IMPRESSION: No acute intracranial abnormality. Thank you for allowing us to participate in the care of your patient. Dictated and Authenticated by: Moe Lynch MD 02/22/2019 1:08 AM Central Time ([place] & [place]) FINAL REPORT CT Brain WO Con I agree with preliminary report given by Dr. Moe Lynch. Transcribed Date/Time: 02/22/2019 8:13 AM
--- NOTE | 2019-02-22 07:39 | CT ---
PRELIMINARY REPORT: CT Cervical Spine Without Contrast EXAM DATE/TIME: 02/22/2019 12:37 AM CLINICAL HISTORY: 73 years old, male; Injury or trauma; Fall; Initial encounter; Blunt trauma; Patient HX: Per [facility] PT khan d an unwitnessed fall today. PT seen here 12 days ago for AMS and sepsis. Nh paperwork states he has AMS. PT tells me his neck hurts. Cannot tell me if he had loc. PT has HX of parkinson's disease TECHNIQUE: Imaging protocol: Axial computed tomography images of the cervical spine without intravenous contrast. COMPARISON: No relevant prior studies available. FINDINGS: Vertebrae: Moderate multilevel bilateral facet and uncovertebral arthropathy. Degenerative changes of the atlantoaxial articulation. No acute fracture. Discs/Spinal canal/Neural foramina: Multilevel degenerative disc disease, worst at the C3-4, C5- 6, and C6-7 levels, manifest by disc space narrowing and osteophyte formation. Right C3-4, bilateral C4-5, and right C5-6 neural foraminal narrowing. Soft tissues: Normal. Lungs: Lung apices are normal. Vasculature: Atherosclerotic vascular calcifications. IMPRESSION: No acute fracture. Thank you for allowing us to participate in the care of your patient. Dictated and Authenticated by: Moe Lynch MD 02/22/2019 1:10 AM Central Time ([place] & [place]) FINAL REPORT: CT Cervical Spine WO Con I agree with the reported by Dr. Moe Lynch. Transcribed Date/Time: 02/22/2019 8:15 AM
--- NOTE | 2019-02-22 07:51 | RAD ---
XR Chest 1 View Portable HISTORY: Fall, altered mental status COMPARISON: 02/09/2019 FINDINGS: The heart size is normal. The aorta is tortuous. No focal areas of consolidation, pneumotho races or pleural effusions are seen. IMPRESSION: No acute process.
== END 2019-02-22 03:48 ==
LOC: ERS 23:20
DX: R53.1 Weakness (principal); M62.542 Muscle wasting and atrophy, not elsewhere classified, left hand; E78.5 Hyperlipidemia, unspecified; G20 Parkinson's disease; F02.80 Dementia in other diseases classified elsewhere, unspecified severity, without behavioral disturbance, psychotic disturbance, mood disturbance, and anxiety; I10 Essential (primary) hypertension; Z79.899 Other long term (current) drug therapy; W17.89XA Other fall from one level to another, initial encounter
CPT/HCPCS: 36415; 51701; 70450; 71045; 72125; 80053; 81003; 81015; 83605; 85025; 87086

== ENCOUNTER 2019-03-10 14:27 | Inpatient (IN) | payer MEDICARE, MEDICAID ==
[~2019-03-10 14:27] MED LIST: ISOVUE-370 76%-LOCM 1 ML ONE
[2019-03-10 15:10] LABS: #Eosinphils 0.1 thou/uL (0.0-0.7); #Lymphocytes 1.8 thou/uL (1.20-3.40); #Monocytes 1.1 thou/uL (0.11-0.59); #Neutrophils 9.6 thou/uL (1.40-6.50); %Basophils 0.1 % (0.0-1.0); %Eosinophils 0.5 % (0.0-10.0); %Lymphocytes 14.4 % (21.0-51.0); %Monocytes 8.6 % (0.0-10.0); %Neutrophils 76.3 % (42.0-75.0); Hemoglobin 13.6 g/dL (14.0-18.0); Mean Corpuscular HGB CONC 32.3 g/dL (32.0-36.0); Mean Corpuscular Hemoglobin 28.9 pg (27.0-31.0); Mean Corpuscular Volume 89.5 fL (78.0-98.0); Mean Platelet Volume 8.1 fL (7.4-10.4); Platelet Count 175 thou/uL (130-400); RBC Distribution Width 14.1 % (11.5-14.5); Red Blood Cell (RBC) Count 4.71 mill/uL (4.70-6.10); White Blood Cell (WBC) Count 12.6 thou/uL (4.8-10.8)
[2019-03-10 15:37] LABS: ALT (SGPT) 18 U/L (8-55); AST (SGOT) 14 U/L (5-34); Albumin 3.8 g/dL (3.4-4.8); Alkaline Phosphatase 62 U/L (40-150); Anion Gap 14 mmol/L (10-20); BUN (Urea Nitrogen) 15 mg/dL (8.4-25.7); Bilirubin, Total 0.8 mg/dL (0.2-1.2); Calc. Creatinine Clearance 0 mL/min (70-130); Calcium 9.6 mg/dL (7.8-10.44); Carbon Dioxide 23 mmol/L (23-31); Chloride 100 mmol/L (98-107); Estimated GFR-MDRD Greater than 90; Globulin 4.1 g/dL (2.4-3.5); Glucose 91 mg/dL (83-110); Lipase 22 U/L (8-78); Potassium 4.2 mmol/L (3.5-5.1); Protein, Total 7.9 g/dL (5.8-8.1); Sodium 133 mmol/L (136-145)
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
[2019-03-10 17:01] LABS: Bilirubin Negative (Negative); Blood, Urine Moderate (Negative); Clarity CLOUDY (Clear); Glucose, Urine (Dipstick) Negative (Negative); Leukocyte Moderate (Negative); Nitrite Positive (Negative); Protein, Urine (Dipstick) 30 mg/dL (Neg-Trace); Urobilinogen 0.2 mg/dL (0.2-1.0); pH, Urine 5.5 (5.0-9.0)
[2019-03-10 17:07] LABS: Bacteria/HPF 4+ HPF (None Seen); Squamous Epithelial 0-3 HPF (0-3)
[2019-03-10 17:08] LABS: Pathc Cast-AUWi Flag 10.06 (0-2.49); Specific Gravity, Urine 1.047 (1.002-1.036)
[2019-03-10 17:13] LABS: Hyaline Casts/LPF 0-3 HYALINE CAST LPF (0-3 Hyaline); Other Casts/LPF None Seen LPF (0-3 Hyaline)
[2019-03-10] MEDS ORDERED: MEROPENEM 1 GM/50 ML BAG IVPB SCH (19:15)
[2019-03-10] MEDS ORDERED: Ondansetron PF 4 MG/2 ML Vial IVP PRN (20:30)
[2019-03-10] MEDS ORDERED: Acetaminophen 650 MG Suppository PR PRN (20:30)
[2019-03-10] MEDS ORDERED: Ondansetron ODT 4 MG TAB PO PRN (20:30)
[2019-03-10] MEDS ORDERED: Acetaminophen 325 MG TAB PO PRN (20:30)
[2019-03-10] MEDS: Sodium Chloride 0.9% 1,000 ML IV SCH (21:09)
[2019-03-10] MEDS: Famotidine/PF 20 mg/2ml Vial SLOW IVP SCH (21:16)
[2019-03-10 22:17] VITALS: BMI 24.6
[2019-03-11] MEDS ORDERED: Midodrine HCl 5 MG TAB PO PRN (00:37)
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
[2019-03-11] MEDS ORDERED: Meropenem 1 GM in Sodium Chloride 0.9% 100 ML IVPB SCH (03:30)
[2019-03-11] MEDS: MEROPENEM 1 GM/50 ML BAG IVPB SCH ×3 (03:49→20:24)
[2019-03-11] MEDS ORDERED: Morphine 4 MG/ML VIAL SLOW IVP PRN (06:02)
[2019-03-11 06:54] LABS: #Eosinphils 0.1 thou/uL (0.0-0.7); #Lymphocytes 1.1 thou/uL (1.20-3.40); #Monocytes 0.8 thou/uL (0.11-0.59); #Neutrophils 6.7 thou/uL (1.40-6.50); %Basophils 0.4 % (0.0-1.0); %Eosinophils 1.1 % (0.0-10.0); %Lymphocytes 12.4 % (21.0-51.0); %Monocytes 8.8 % (0.0-10.0); %Neutrophils 77.3 % (42.0-75.0); Hemoglobin 12.1 g/dL (14.0-18.0); Mean Corpuscular HGB CONC 32.7 g/dL (32.0-36.0); Mean Corpuscular Hemoglobin 29.1 pg (27.0-31.0); Mean Corpuscular Volume 88.8 fL (78.0-98.0); Mean Platelet Volume 7.7 fL (7.4-10.4); Platelet Count 176 thou/uL (130-400); RBC Distribution Width 13.9 % (11.5-14.5); Red Blood Cell (RBC) Count 4.16 mill/uL (4.70-6.10); White Blood Cell (WBC) Count 8.7 thou/uL (4.8-10.8)
[2019-03-11 07:14] LABS: Anion Gap 12 mmol/L (10-20); BUN (Urea Nitrogen) 12 mg/dL (8.4-25.7); Calc. Creatinine Clearance 93 mL/min (70-130); Calcium 8.9 mg/dL (7.8-10.44); Carbon Dioxide 23 mmol/L (23-31); Chloride 104 mmol/L (98-107); Estimated GFR-MDRD Greater than 90; Glucose 76 mg/dL (83-110); Potassium 3.7 mmol/L (3.5-5.1); Sodium 135 mmol/L (136-145)
[2019-03-11] MEDS: traZODone HCl 50 MG TAB PO SCH (08:39)
[2019-03-11] MEDS: Carbidopa/Levodopa 25-100 mg Tablet PO SCH ×3 (08:39→20:26)
[2019-03-11] MEDS: Atorvastatin Calcium 10 MG TAB PO SCH (08:39)
[2019-03-11] MEDS: Famotidine/PF 20 mg/2ml Vial SLOW IVP SCH ×2 (08:39→20:25)
[2019-03-11] MEDS: Docusate 100 MG CAP PO SCH (08:39)
[2019-03-11] MEDS ORDERED: Prevnar 13-Val Conj/PF 0.5 ML SYRINGE IM ONE (09:00)
[2019-03-11] MEDS ORDERED: Polyethylene Glycol 3350 17 GM Packet PO SCH (09:00)
[2019-03-11] MEDS: Sodium Chloride 0.9% 1,000 ML IV SCH (11:47)
--- NOTE | 2019-03-11 17:39 | PDOC.PN ---
- Subjective Encounter Start Date: 03/11/19 Encounter Start Time: 12:00 Subjective: awake, not oriented -: not in distress, is watching television - Objective Resuscitation Status - Order Detail: 03/10/19 20:30 Resuscitation Status Routine Co-Sign Provider: Resuscitation Status: FULL: Full Resuscitation MAR Reviewed: Yes Vital Signs & Weight: Vital Signs (12 hours) Temp Pulse Resp BP Pulse Ox 03/11/19 15:57 97.7 F 100 20 124/83 97 03/11/19 11:17 97.7 F 101 H 18 126/86 96 03/11/19 08:32 97 03/11/19 07:21 98.7 F 95 20 130/87 97 Weight Admit Weight 162 lb Weight 162 lb Result Diagrams: 03/11/19 06:36 03/11/19 06:36 Phys Exam - Physical Examination HEENT: PERRLA, moist MMs Neck: no JVD, supple Respiratory: no wheezing, no rales Cardiovascular: RRR, no significant murmur Gastrointestinal: soft, no distention, positive bowel sounds Musculoskeletal: no edema, pulses present Neurological: non-focal, moves all 4 limbs Dx/Plan (1) Acute diverticulitis Code(s): K57.92 - DVTRCLI OF INTEST, PART UNSP, W/O PERF OR ABSCESS W/O BLEED Status: Acute (2) Acute metabolic encephalopathy Code(s): G93.41 - METABOLIC ENCEPHALOPATHY Status: Acute (3) UTI (urinary tract infection) Status: Acute Qualifiers: Urinary tract infection type: acute cystitis Hematuria presence: without hematuria Qualified Code(s): N30.00 - Acute cystitis without hematuria (4) BPH (benign prostatic hyperplasia) Code(s): N40.0 - BENIGN PROSTATIC HYPERPLASIA WITHOUT LOWER URINRY TRACT SYMP Status: Chronic Qualifiers: (5) Dementia Code(s): F03.90 - UNSPECIFIED DEMENTIA WITHOUT BEHAVIORAL DISTURBANCE Status: Chronic Qualifiers: Dementia type: Parkinson's disease Dementia behavioral disturbance: without behavioral disturbance Qualified Code(s): G20 - Parkinson's disease; F02.80 - Dementia in other diseases classified elsewhere without behavioral disturbance (6) Dyslipidemia Code(s): E78.5 - HYPERLIPIDEMIA, UNSPECIFIED Status: Chronic (7) HTN (hypertension) Code(s): I10 - ESSENTIAL (PRIMARY) HYPERTENSION Status: Chronic Qualifiers: (8) Parkinson disease Code(s): G20 - PARKINSON'S DISEASE Status: Chronic - Plan is on meropenem, may switch to cipro and flagyl if ok with GI -: GI opinion -: continue levodopa, bowel regimen, gentle iv fluids x 24hrs -: likely has underlying dementia, is not clinically oriented now -: golytely 1 liter if ok with GI * . Review of Systems - Medications/Allergies Allergies/Adverse Reactions: Allergies Allergy/AdvReac Type Severity Reaction Status Date / Time No Known Drug Allergies Allergy Verified 07/14/17 14:30 Medications: Current Medications Acetaminophen (Tylenol) 650 mg PO Q4H PRN PRN Reason: Headache/Fever/Mild Pain (1-3) Acetaminophen (Tylenol) 650 mg [place] Q4H PRN PRN Reason: Headache/Fever/Mild Pain (1-3) Atorvastatin Calcium (Lipitor) 10 mg PO DAILY [facility] Last Admin: 03/11/19 08:39 Dose: 10 mg Carbidopa/Levodopa (Sinemet 25-100) 1 tab PO TID [facility] Last Admin: 03/11/19 15:10 Dose: 1 tab Docusate Sodium (Colace) 200 mg PO DAILY [facility] Last Admin: 03/11/19 08:39 Dose: 200 mg Famotidine (Pepcid) 20 mg SLOW IVP Q12HR [facility] Last Admin: 03/11/19 08:39 Dose: 20 mg Sodium Chloride (Normal Saline 0.9%) 1,000 mls @ 65 mls/hr IV .[id number] [facility] Last Admin: 03/11/19 11:47 Dose: 1,000 mls Meropenem (Merrem 1 Gm/50 Ml) 1 gm IVPB 0400,1200,2000 [facility] Last Admin: 03/11/19 11:46 Dose: 1 gm Midodrine (Proamatine) 5 mg PO TID PRN PRN Reason: Hypotension Morphine Sulfate (Morphine) 2 mg SLOW IVP Q4H PRN PRN Reason: Pain Ondansetron HCl (Zofran Odt) 4 mg PO Q6H PRN PRN Reason: Nausea/Vomiting Ondansetron HCl (Zofran) 4 mg IVP Q6H PRN PRN Reason: Nausea/Vomiting Polyethylene Glycol (Miralax) 17 gm PO BID [facility] Sodium Chloride (Flush - Normal Saline) 10 ml IVF Q12HR PRN PRN Reason: Saline Flush Sodium Chloride (Flush - Normal Saline) 10 ml IVF PRN PRN PRN Reason: Saline Flush Trazodone HCl (Desyrel) 50 mg PO DAILY [facility] Last Admin: 03/11/19 08:39 Dose: 50 mg
[2019-03-11] MEDS: Polyethylene Glycol 3350 17 GM Packet PO SCH (20:25)
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
[2019-03-12] MEDS: MEROPENEM 1 GM/50 ML BAG IVPB SCH ×3 (03:29→20:23)
[2019-03-12] MEDS: Sodium Chloride 0.9% 1,000 ML IV SCH ×2 (03:29→18:05)
[2019-03-12] MEDS: Polyethylene Glycol 3350 17 GM Packet PO SCH ×2 (07:59→20:23)
[2019-03-12] MEDS: traZODone HCl 50 MG TAB PO SCH (08:02)
[2019-03-12] MEDS: Docusate 100 MG CAP PO SCH (08:02)
[2019-03-12] MEDS: Atorvastatin Calcium 10 MG TAB PO SCH (08:02)
[2019-03-12] MEDS: Carbidopa/Levodopa 25-100 mg Tablet PO SCH ×3 (08:03→20:23)
[2019-03-12] MEDS: Famotidine/PF 20 mg/2ml Vial SLOW IVP SCH ×2 (08:03→20:23)
--- NOTE | 2019-03-12 15:00 | PDOC.PN ---
- Subjective Encounter Start Date: 03/12/19 Encounter Start Time: 07:15 Subjective: awake, not in distress -: no nausea or abd pain -: is passing stool - Objective Resuscitation Status - Order Detail: 03/10/19 20:30 Resuscitation Status Routine Co-Sign Provider: Resuscitation Status: FULL: Full Resuscitation MAR Reviewed: Yes Vital Signs & Weight: Vital Signs (12 hours) Temp Pulse Resp BP Pulse Ox 03/12/19 11:45 98.8 F 95 18 119/70 98 03/12/19 07:23 97 03/12/19 07:22 98.4 F 90 20 144/88 H 97 03/12/19 04:00 98.4 F 99 20 136/91 H 96 Weight Admit Weight 162 lb Weight 162 lb I&O: 03/11/19 03/12/19 03/13/19 06:59 06:59 06:59 Intake Total 2014 Balance 2014 Result Diagrams: 03/11/19 06:36 03/11/19 06:36 Phys Exam - Physical Examination HEENT: PERRLA, moist MMs Neck: no JVD, supple Respiratory: no wheezing, no rales Cardiovascular: RRR, no significant murmur Gastrointestinal: soft, no distention, positive bowel sounds Musculoskeletal: no edema, pulses present Neurological: non-focal, moves all 4 limbs Dx/Plan (1) Acute diverticulitis Code(s): K57.92 - DVTRCLI OF INTEST, PART UNSP, W/O PERF OR ABSCESS W/O BLEED Status: Acute (2) Acute metabolic encephalopathy Code(s): G93.41 - METABOLIC ENCEPHALOPATHY Status: Acute (3) UTI (urinary tract infection) Status: Acute Qualifiers: Urinary tract infection type: acute cystitis Hematuria presence: without hematuria Qualified Code(s): N30.00 - Acute cystitis without hematuria (4) BPH (benign prostatic hyperplasia) Code(s): N40.0 - BENIGN PROSTATIC HYPERPLASIA WITHOUT LOWER URINRY TRACT SYMP Status: Chronic Qualifiers: (5) Dementia Code(s): F03.90 - UNSPECIFIED DEMENTIA WITHOUT BEHAVIORAL DISTURBANCE Status: Chronic Qualifiers: Dementia type: Parkinson's disease Dementia behavioral disturbance: without behavioral disturbance Qualified Code(s): G20 - Parkinson's disease; F02.80 - Dementia in other diseases classified elsewhere without behavioral disturbance (6) Dyslipidemia Code(s): E78.5 - HYPERLIPIDEMIA, UNSPECIFIED Status: Chronic (7) HTN (hypertension) Code(s): I10 - ESSENTIAL (PRIMARY) HYPERTENSION Status: Chronic Qualifiers: (8) Parkinson disease Code(s): G20 - PARKINSON'S DISEASE Status: Chronic - Plan is on meropenem -: await urine sensitivities -: is on clear liquid diet, await hard stool to come out -: on miralax, colace and lactulose with gentle iv hydration -: continue levodopa, lipitor and trazadone. Labs in am * . Review of Systems - Medications/Allergies Allergies/Adverse Reactions: Allergies Allergy/AdvReac Type Severity Reaction Status Date / Time No Known Drug Allergies Allergy Verified 07/14/17 14:30 Medications: Current Medications Acetaminophen (Tylenol) 650 mg PO Q4H PRN PRN Reason: Headache/Fever/Mild Pain (1-3) Acetaminophen (Tylenol) 650 mg [place] Q4H PRN PRN Reason: Headache/Fever/Mild Pain (1-3) Atorvastatin Calcium (Lipitor) 10 mg PO DAILY [facility] Last Admin: 03/12/19 08:02 Dose: 10 mg Carbidopa/Levodopa (Sinemet 25-100) 1 tab PO TID [facility] Last Admin: 03/12/19 14:43 Dose: 1 tab Docusate Sodium (Colace) 200 mg PO DAILY [facility] Last Admin: 03/12/19 08:02 Dose: 200 mg Famotidine (Pepcid) 20 mg SLOW IVP Q12HR [facility] Last Admin: 03/12/19 08:03 Dose: 20 mg Sodium Chloride (Normal Saline 0.9%) 1,000 mls @ 65 mls/hr IV .[id number] [facility] Last Admin: 03/12/19 03:29 Dose: 1,000 mls Meropenem (Merrem 1 Gm/50 Ml) 1 gm IVPB 0400,1200,2000 [facility] Last Admin: 03/12/19 11:33 Dose: 1 gm Midodrine (Proamatine) 5 mg PO TID PRN PRN Reason: Hypotension Morphine Sulfate (Morphine) 2 mg SLOW IVP Q4H PRN PRN Reason: Pain Ondansetron HCl (Zofran Odt) 4 mg PO Q6H PRN PRN Reason: Nausea/Vomiting Ondansetron HCl (Zofran) 4 mg IVP Q6H PRN PRN Reason: Nausea/Vomiting Polyethylene Glycol (Miralax) 17 gm PO BID [facility] Last Admin: 03/12/19 07:59 Dose: 17 gm Sodium Chloride (Flush - Normal Saline) 10 ml IVF Q12HR PRN PRN Reason: Saline Flush Sodium Chloride (Flush - Normal Saline) 10 ml IVF PRN PRN PRN Reason: Saline Flush Trazodone HCl (Desyrel) 50 mg PO DAILY [facility] Last Admin: 03/12/19 08:02 Dose: 50 mg
[2019-03-13] MEDS: MEROPENEM 1 GM/50 ML BAG IVPB SCH ×3 (03:59→20:43)
[2019-03-13 06:26] LABS: #Eosinphils 0.1 thou/uL (0.0-0.7); #Lymphocytes 1.1 thou/uL (1.20-3.40); #Monocytes 0.7 thou/uL (0.11-0.59); #Neutrophils 5.8 thou/uL (1.40-6.50); %Basophils 0.1 % (0.0-1.0); %Eosinophils 1.6 % (0.0-10.0); %Lymphocytes 14.4 % (21.0-51.0); %Monocytes 8.6 % (0.0-10.0); %Neutrophils 75.3 % (42.0-75.0); Hemoglobin 12.9 g/dL (14.0-18.0); Mean Corpuscular HGB CONC 32.6 g/dL (32.0-36.0); Mean Corpuscular Hemoglobin 29.2 pg (27.0-31.0); Mean Corpuscular Volume 89.6 fL (78.0-98.0); Mean Platelet Volume 7.2 fL (7.4-10.4); Platelet Count 227 thou/uL (130-400); RBC Distribution Width 13.8 % (11.5-14.5); Red Blood Cell (RBC) Count 4.41 mill/uL (4.70-6.10); White Blood Cell (WBC) Count 7.7 thou/uL (4.8-10.8)
[2019-03-13 06:46] LABS: Anion Gap 10 mmol/L (10-20); BUN (Urea Nitrogen) 5 mg/dL (8.4-25.7); Calc. Creatinine Clearance 95 mL/min (70-130); Carbon Dioxide 26 mmol/L (23-31); Chloride 105 mmol/L (98-107); Estimated GFR-MDRD Greater than 90; Glucose 99 mg/dL (83-110); Potassium 3.8 mmol/L (3.5-5.1); Sodium 137 mmol/L (136-145)
[2019-03-13] MEDS: Polyethylene Glycol 3350 17 GM Packet PO SCH ×2 (08:09→20:43)
[2019-03-13] MEDS: Docusate 100 MG CAP PO SCH (08:09)
[2019-03-13] MEDS: Famotidine/PF 20 mg/2ml Vial SLOW IVP SCH (08:09)
[2019-03-13] MEDS: Atorvastatin Calcium 10 MG TAB PO SCH (08:09)
[2019-03-13] MEDS: Carbidopa/Levodopa 25-100 mg Tablet PO SCH ×3 (08:09→20:43)
[2019-03-13] MEDS: traZODone HCl 50 MG TAB PO SCH (08:09)
[2019-03-13] MEDS: Sodium Chloride 0.9% 1,000 ML IV SCH (10:14)
--- NOTE | 2019-03-13 12:43 | PDOC.PN ---
- Subjective Encounter Start Date: 03/13/19 Encounter Start Time: 11:30 Subjective: awake, not in distress -: no abd pain, not oriented -: no nausea or vomiting - Objective Resuscitation Status - Order Detail: 03/10/19 20:30 Resuscitation Status Routine Co-Sign Provider: Resuscitation Status: FULL: Full Resuscitation MAR Reviewed: Yes Vital Signs & Weight: Vital Signs (12 hours) Temp Pulse Resp BP BP Pulse Ox 03/13/19 12:00 98.3 F 84 20 150/97 H 98 03/13/19 07:36 98.5 F 93 20 148/95 H 96 03/13/19 07:35 96 03/13/19 04:02 98.6 F 97 18 128/84 95 Weight Admit Weight 162 lb Weight 162 lb I&O: 03/12/19 03/13/19 03/14/19 06:59 06:59 06:59 Intake Total 2014 2514 Output Total 400 Balance 2014 2114 Result Diagrams: 03/13/19 06:08 03/13/19 06:08 Phys Exam - Physical Examination HEENT: PERRLA, moist MMs Neck: no JVD, supple Respiratory: no wheezing, no rales Cardiovascular: RRR, no significant murmur Gastrointestinal: soft, no distention, positive bowel sounds Musculoskeletal: no edema, pulses present Neurological: non-focal, moves all 4 limbs Dx/Plan (1) Acute diverticulitis Code(s): K57.92 - DVTRCLI OF INTEST, PART UNSP, W/O PERF OR ABSCESS W/O BLEED Status: Acute (2) Acute metabolic encephalopathy Code(s): G93.41 - METABOLIC ENCEPHALOPATHY Status: Resolved (3) UTI (urinary tract infection) Status: Acute Qualifiers: Urinary tract infection type: acute cystitis Hematuria presence: without hematuria Qualified Code(s): N30.00 - Acute cystitis without hematuria (4) BPH (benign prostatic hyperplasia) Code(s): N40.0 - BENIGN PROSTATIC HYPERPLASIA WITHOUT LOWER URINRY TRACT SYMP Status: Chronic Qualifiers: (5) Dementia Code(s): F03.90 - UNSPECIFIED DEMENTIA WITHOUT BEHAVIORAL DISTURBANCE Status: Chronic Qualifiers: Dementia type: Parkinson's disease Dementia behavioral disturbance: without behavioral disturbance Qualified Code(s): G20 - Parkinson's disease; F02.80 - Dementia in other diseases classified elsewhere without behavioral disturbance (6) Dyslipidemia Code(s): E78.5 - HYPERLIPIDEMIA, UNSPECIFIED Status: Chronic (7) HTN (hypertension) Code(s): I10 - ESSENTIAL (PRIMARY) HYPERTENSION Status: Chronic Qualifiers: (8) Parkinson disease Code(s): G20 - PARKINSON'S DISEASE Status: Chronic - Plan advance diet to heart healthy solid diet -: dc iv fluids, continue bowel regimen -: is on meropenem, dc plan in am if stable -: likely to be at his baseline cognitive status -: continue levodopa, lipitor, omeprazole and trazadone * . Review of Systems - Medications/Allergies Allergies/Adverse Reactions: Allergies Allergy/AdvReac Type Severity Reaction Status Date / Time No Known Drug Allergies Allergy Verified 07/14/17 14:30 Medications: Current Medications Acetaminophen (Tylenol) 650 mg PO Q4H PRN PRN Reason: Headache/Fever/Mild Pain (1-3) Acetaminophen (Tylenol) 650 mg [place] Q4H PRN PRN Reason: Headache/Fever/Mild Pain (1-3) Atorvastatin Calcium (Lipitor) 10 mg PO DAILY [facility] Last Admin: 03/13/19 08:09 Dose: 10 mg Carbidopa/Levodopa (Sinemet 25-100) 1 tab PO TID [facility] Last Admin: 03/13/19 08:09 Dose: 1 tab Docusate Sodium (Colace) 200 mg PO DAILY [facility] Last Admin: 03/13/19 08:09 Dose: 200 mg Meropenem (Merrem 1 Gm/50 Ml) 1 gm IVPB 0400,1200,2000 [facility] Last Admin: 03/13/19 12:16 Dose: 1 gm Midodrine (Proamatine) 5 mg PO TID PRN PRN Reason: Hypotension Morphine Sulfate (Morphine) 2 mg SLOW IVP Q4H PRN PRN Reason: Pain Non-Formulary Medication (Omeprazole [Omeprazole]) 1 capsule PO DAILY [facility] Ondansetron HCl (Zofran Odt) 4 mg PO Q6H PRN PRN Reason: Nausea/Vomiting Ondansetron HCl (Zofran) 4 mg IVP Q6H PRN PRN Reason: Nausea/Vomiting Polyethylene Glycol (Miralax) 17 gm PO BID [facility] Last Admin: 03/13/19 08:09 Dose: 17 gm Sodium Chloride (Flush - Normal Saline) 10 ml IVF Q12HR PRN PRN Reason: Saline Flush Last Admin: 03/12/19 20:27 Dose: 10 ml Sodium Chloride (Flush - Normal Saline) 10 ml IVF PRN PRN PRN Reason: Saline Flush Trazodone HCl (Desyrel) 50 mg PO DAILY [facility] Last Admin: 03/13/19 08:09 Dose: 50 mg
[2019-03-14] MEDS: MEROPENEM 1 GM/50 ML BAG IVPB SCH ×3 (04:24→19:35)
[2019-03-14] MEDS: Polyethylene Glycol 3350 17 GM Packet PO SCH ×2 (07:39→19:35)
[2019-03-14] MEDS: Carbidopa/Levodopa 25-100 mg Tablet PO SCH ×3 (07:39→19:35)
[2019-03-14] MEDS: traZODone HCl 50 MG TAB PO SCH (07:39)
[2019-03-14] MEDS: Atorvastatin Calcium 10 MG TAB PO SCH (07:39)
[2019-03-14] MEDS: Docusate 100 MG CAP PO SCH (07:39)
[2019-03-14] MEDS ORDERED: OMEPRAZOLE PO SCH (09:00)
--- NOTE | 2019-03-14 17:24 | PDOC.PN ---
- Subjective Encounter Start Date: 03/14/19 Encounter Start Time: 11:30 Subjective: awake and responds well to verbal stimuli this am -: no abd pain or nausea -: is tolerating oral diet - Objective Resuscitation Status - Order Detail: 03/10/19 20:30 Resuscitation Status Routine Co-Sign Provider: Resuscitation Status: FULL: Full Resuscitation MAR Reviewed: Yes Vital Signs & Weight: Vital Signs (12 hours) Temp Pulse Resp BP Pulse Ox 03/14/19 15:24 98.3 F 84 16 102/72 97 03/14/19 12:00 98.4 F 79 18 105/74 94 L 03/14/19 07:27 97.9 F 79 16 122/79 94 L Weight Admit Weight 162 lb Weight 162 lb I&O: 03/13/19 03/14/19 03/15/19 06:59 06:59 06:59 Intake Total 2515 1605 240 Output Total 400 600 Balance 2115 1005 240 Result Diagrams: 03/13/19 06:08 03/13/19 06:08 Phys Exam - Physical Examination HEENT: PERRLA, moist MMs Neck: no JVD, supple Respiratory: no wheezing, no rales Cardiovascular: RRR, no significant murmur Gastrointestinal: soft, non-tender, no distention, positive bowel sounds Musculoskeletal: no edema, pulses present Neurological: non-focal, moves all 4 limbs Dx/Plan (1) Acute diverticulitis Code(s): K57.92 - DVTRCLI OF INTEST, PART UNSP, W/O PERF OR ABSCESS W/O BLEED Status: Acute Comment: resolving (2) Acute metabolic encephalopathy Code(s): G93.41 - METABOLIC ENCEPHALOPATHY Status: Resolved (3) UTI (urinary tract infection) Status: Acute Qualifiers: Urinary tract infection type: acute cystitis Hematuria presence: without hematuria Qualified Code(s): N30.00 - Acute cystitis without hematuria (4) BPH (benign prostatic hyperplasia) Code(s): N40.0 - BENIGN PROSTATIC HYPERPLASIA WITHOUT LOWER URINRY TRACT SYMP Status: Chronic Qualifiers: (5) Dementia Code(s): F03.90 - UNSPECIFIED DEMENTIA WITHOUT BEHAVIORAL DISTURBANCE Status: Chronic Qualifiers: Dementia type: Parkinson's disease Dementia behavioral disturbance: without behavioral disturbance Qualified Code(s): G20 - Parkinson's disease; F02.80 - Dementia in other diseases classified elsewhere without behavioral disturbance (6) Dyslipidemia Code(s): E78.5 - HYPERLIPIDEMIA, UNSPECIFIED Status: Chronic (7) HTN (hypertension) Code(s): I10 - ESSENTIAL (PRIMARY) HYPERTENSION Status: Chronic Qualifiers: (8) Parkinson disease Code(s): G20 - PARKINSON'S DISEASE Status: Chronic - Plan hemostable -: is on meropenem -: will switch to macrobid and flagyl in am -: is responding to current antibiotics -: d/w daughter and gave an update, likely dc plan in am to snf * . Continue bowel regimen, levodopa, trazadone. Review of Systems - Medications/Allergies Allergies/Adverse Reactions: Allergies Allergy/AdvReac Type Severity Reaction Status Date / Time No Known Drug Allergies Allergy Verified 07/14/17 14:30 Medications: Current Medications Acetaminophen (Tylenol) 650 mg PO Q4H PRN PRN Reason: Headache/Fever/Mild Pain (1-3) Acetaminophen (Tylenol) 650 mg IN Q4H PRN PRN Reason: Headache/Fever/Mild Pain (1-3) Atorvastatin Calcium (Lipitor) 10 mg PO DAILY [facility] Last Admin: 03/14/19 07:39 Dose: 10 mg Carbidopa/Levodopa (Sinemet 25-100) 1 tab PO TID [facility] Last Admin: 03/14/19 16:20 Dose: 1 tab Docusate Sodium (Colace) 200 mg PO DAILY [facility] Last Admin: 03/14/19 07:39 Dose: 200 mg Meropenem (Merrem 1 Gm/50 Ml) 1 gm IVPB 0400,1200,2000 [facility] Last Admin: 03/14/19 12:24 Dose: 1 gm Midodrine (Proamatine) 5 mg PO TID PRN PRN Reason: Hypotension Morphine Sulfate (Morphine) 2 mg SLOW IVP Q4H PRN PRN Reason: Pain Ondansetron HCl (Zofran Odt) 4 mg PO Q6H PRN PRN Reason: Nausea/Vomiting Ondansetron HCl (Zofran) 4 mg IVP Q6H PRN PRN Reason: Nausea/Vomiting Pantoprazole Sodium (Protonix) 40 mg PO DAILY [facility] Last Admin: 03/14/19 07:40 Dose: 40 mg Polyethylene Glycol (Miralax) 17 gm PO BID [facility] Last Admin: 03/14/19 07:39 Dose: 17 gm Sodium Chloride (Flush - Normal Saline) 10 ml IVF Q12HR PRN PRN Reason: Saline Flush Last Admin: 03/12/19 20:27 Dose: 10 ml Sodium Chloride (Flush - Normal Saline) 10 ml IVF PRN PRN PRN Reason: Saline Flush Trazodone HCl (Desyrel) 50 mg PO DAILY [facility] Last Admin: 03/14/19 07:39 Dose: 50 mg
[2019-03-15] MEDS: MEROPENEM 1 GM/50 ML BAG IVPB SCH ×2 (03:46→14:40)
[2019-03-15] MEDS: Atorvastatin Calcium 10 MG TAB PO SCH (08:18)
[2019-03-15] MEDS: Carbidopa/Levodopa 25-100 mg Tablet PO SCH (08:18)
[2019-03-15] MEDS: traZODone HCl 50 MG TAB PO SCH (08:18)
[2019-03-15] MEDS: Docusate 100 MG CAP PO SCH (08:18)
[2019-03-15] MEDS: Polyethylene Glycol 3350 17 GM Packet PO SCH (08:18)
[2019-03-15 08:22] VITALS: BP 115/69; TEMP 98.3
--- NOTE | 2019-03-15 15:47 | PDOC.PN ---
- Subjective Encounter Start Date: 03/15/19 Encounter Start Time: 07:35 Subjective: awake, feels better -: no abd pain or nausea -: responding well to verbal stimuli - Objective Resuscitation Status - Order Detail: 03/10/19 20:30 Resuscitation Status Routine Co-Sign Provider: Resuscitation Status: FULL: Full Resuscitation MAR Reviewed: Yes Vital Signs & Weight: Vital Signs (12 hours) Temp Pulse Resp BP BP Pulse Ox 03/15/19 08:21 98.3 F 91 18 115/69 93 L 03/15/19 04:00 98.6 F 87 20 113/78 97 Weight Admit Weight 162 lb Weight 162 lb I&O: 03/14/19 03/15/19 03/16/19 06:59 06:59 06:59 Intake Total 1605 1300 Output Total 600 Balance 1005 1300 Result Diagrams: 03/13/19 06:08 03/13/19 06:08 Phys Exam - Physical Examination HEENT: PERRLA, moist MMs Neck: no JVD, supple Respiratory: no wheezing, no rales Cardiovascular: RRR, no significant murmur Gastrointestinal: soft, non-tender, positive bowel sounds Musculoskeletal: no edema, pulses present Neurological: non-focal, moves all 4 limbs Dx/Plan (1) Acute diverticulitis Code(s): K57.92 - DVTRCLI OF INTEST, PART UNSP, W/O PERF OR ABSCESS W/O BLEED Status: Acute Comment: resolving (2) Acute metabolic encephalopathy Code(s): G93.41 - METABOLIC ENCEPHALOPATHY Status: Resolved (3) UTI (urinary tract infection) Status: Acute Qualifiers: Urinary tract infection type: acute cystitis Hematuria presence: without hematuria Qualified Code(s): N30.00 - Acute cystitis without hematuria (4) BPH (benign prostatic hyperplasia) Code(s): N40.0 - BENIGN PROSTATIC HYPERPLASIA WITHOUT LOWER URINRY TRACT SYMP Status: Chronic Qualifiers: (5) Dementia Code(s): F03.90 - UNSPECIFIED DEMENTIA WITHOUT BEHAVIORAL DISTURBANCE Status: Chronic Qualifiers: Dementia type: Parkinson's disease Dementia behavioral disturbance: without behavioral disturbance Qualified Code(s): G20 - Parkinson's disease; F02.80 - Dementia in other diseases classified elsewhere without behavioral disturbance (6) Dyslipidemia Code(s): E78.5 - HYPERLIPIDEMIA, UNSPECIFIED Status: Chronic (7) HTN (hypertension) Code(s): I10 - ESSENTIAL (PRIMARY) HYPERTENSION Status: Chronic Qualifiers: (8) Parkinson disease Code(s): G20 - PARKINSON'S DISEASE Status: Chronic - Plan hemostable -: dc pt to [facility] snf -: flagyl and macrobid * .
--- NOTE | 2019-03-16 11:32 | DIS ---
DATE OF ADMISSION: 03/10/2019 DATE OF DISCHARGE: 03/15/2019 DISCHARGE DISPOSITION: To [facility]. PRIMARY DISCHARGE DIAGNOSES: 1. Acute diverticulitis, resolving. 2. Urinary tract infection, resolving. 3. Acute metabolic encephalopathy, resolved, likely at his baseline, cognitive function at present. SECONDARY DISCHARGE DIAGNOSES: 1. Dementia. 2. Benign prostatic hypertrophy. 3. Parkinson disease. 4. Dyslipidemia. 5. Hypertension. PROCEDURES DONE DURING HOSPITALIZATION: Abdominal and pelvic CAT scan done showed findings suggestive of new focal left colonic wall thickening with pericolonic fat stranding, evidence for local acute colitis or diverticulitis. Blood cultures x2, no growth. Urine culture grew E coli more than 100,000 colony-forming units per mL sensitive to gentamicin, meropenem, nitrofurantoin, and Zosyn. He had a white count of 12 on the day of admission, with white count of 7.7 on the 5th. Discharge BUN and creatinine are 5 and 0.7. DISCHARGE MEDICATIONS: 1. Lipitor 10 mg p.o. daily. 2. Carbidopa/levodopa 25/100 mg 1 tab p.o. 3 times daily. 3. Colace 200 mg p.o. daily. 4. Vitamin B2 per primary care physician's advice. 5. Lactulose 30 g p.o. daily. 6. Midodrine 5 mg p.o. 3 times daily p.r.n. for hypotension. 7. Omeprazole 40 mg p.o. daily. 8. MiraLAX 17 g daily. 9. Trazodone 50 mg daily. 10. Flagyl 500 mg p.o. 3 times daily for another 5 days. 11. Macrobid 100 mg p.o. twice daily for another 4 days. ALLERGIES: NO KNOWN DRUG ALLERGIES. INPATIENT CONSULT: Dr. Brad Adkins for Gastroenterology. DISCHARGE PLAN: The patient to follow up with primary care physician in 1 week. BRIEF COURSE DURING HOSPITALIZATION: The patient initially was sent over from [facility] for complaints of abdominal pain and confusion. Initial workup revealed acute diverticulitis with urinary tract infection. He was placed on broad-spectrum antibiotics and bowel regimen. The patient has had slow but good response to fluid resuscitation, slow weaning into solid diet and antibiotics. He needs to continue antibiotics for another 5 days. The patient appears to be at his cognitive baseline. He has known history of dementia with Parkinson's and poor functional status as well. All through his stay, his daughter, Ms. Bruce Vazquez was given complete updates. He is tolerating solid food and hemodynamically stable prior to discharge. A total of 35 minutes was spent on discharge plan. Please see a [id number] documentation for the day of discharge on [facility]. Job ID: [id number] MTDD
== END 2019-03-15 17:38 | DRG 391 ==
LOC: ERS 14:27 → T4-A 20:24
PROVIDERS: ADMIT Internal Medicine; ATTEND Internal Medicine
DX: K57.92 Diverticulitis of intestine, part unspecified, without perforation or abscess without bleeding (principal); G93.41 Metabolic encephalopathy; N39.0 Urinary tract infection, site not specified; K21.9 Gastro-esophageal reflux disease without esophagitis; N40.0 Benign prostatic hyperplasia without lower urinary tract symptoms; E78.5 Hyperlipidemia, unspecified; G20 Parkinson's disease; F02.80 Dementia in other diseases classified elsewhere, unspecified severity, without behavioral disturbance, psychotic disturbance, mood disturbance, and anxiety; I10 Essential (primary) hypertension; Z79.899 Other long term (current) drug therapy; Z98.890 Other specified postprocedural states
CPT/HCPCS: 36415; 36416; 74177; 80048; 80053; 81003; 81015; 83605; 83690; 85025; 87040; 87077; 87086; 87186; 93005; 94760; J2185; Q9966; S0028

== ENCOUNTER 2019-03-31 08:16 | Inpatient (IN) | payer MEDICARE, MEDICAID ==
[2019-03-31 09:20] LABS: #Lymphocytes 1.8 thou/uL (1.20-3.40); #Monocytes 0.6 thou/uL (0.11-0.59); #Neutrophils 6.3 thou/uL (1.40-6.50); %Basophils 0.2 % (0.0-1.0); %Eosinophils 0.5 % (0.0-10.0); %Lymphocytes 21.1 % (21.0-51.0); %Monocytes 6.7 % (0.0-10.0); %Neutrophils 71.5 % (42.0-75.0); Hemoglobin 13.9 g/dL (14.0-18.0); Mean Corpuscular Volume 90.7 fL (78.0-98.0); Mean Platelet Volume 8.5 fL (7.4-10.4); Platelet Count 237 thou/uL (130-400); RBC Distribution Width 14.7 % (11.5-14.5); Red Blood Cell (RBC) Count 4.78 mill/uL (4.70-6.10); White Blood Cell (WBC) Count 8.7 thou/uL (4.8-10.8)
[2019-03-31 09:31] LABS: ALT (SGPT) 24 U/L (8-55); AST (SGOT) 14 U/L (5-34); Albumin 4.1 g/dL (3.4-4.8); Alkaline Phosphatase 51 U/L (40-150); Anion Gap 15 mmol/L (10-20); BUN (Urea Nitrogen) 9 mg/dL (8.4-25.7); Bilirubin, Total 0.7 mg/dL (0.2-1.2); Calc. Creatinine Clearance 0 mL/min (70-130); Calcium 9.4 mg/dL (7.8-10.44); Carbon Dioxide 26 mmol/L (23-31); Chloride 100 mmol/L (98-107); Estimated GFR-MDRD Greater than 90; Globulin 3.5 g/dL (2.4-3.5); Glucose 97 mg/dL (83-110); Lipase 20 U/L (8-78); Potassium 4.5 mmol/L (3.5-5.1); Protein, Total 7.6 g/dL (5.8-8.1); Sodium 136 mmol/L (136-145)
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
[2019-03-31] MEDS ORDERED: Aspirin Chewable 81 MG TAB ONE (10:30)
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
[2019-03-31] MEDS ORDERED: cefTRIAXone\\ROCEPHIN 2 GM VIAL ONE (10:43)
[2019-03-31] MEDS ORDERED: Sodium Chloride 0.9% 100 ML ONE (10:43)
[2019-03-31 13:01] LABS: Troponin I Less than 0.010 ng/mL (< 0.028)
[2019-03-31] MEDS ORDERED: Ondansetron ODT 4 MG TAB PO PRN (13:13)
[2019-03-31] MEDS ORDERED: Ibuprofen 200 MG TAB PO PRN (13:13)
[2019-03-31] MEDS ORDERED: Ondansetron PF 4 MG/2 ML Vial IVP PRN (13:13)
[2019-03-31] MEDS ORDERED: Acetaminophen 500 MG TAB PO PRN (13:13)
[2019-03-31] MEDS ORDERED: hydrALAZINE 20 MG/ML VIAL SLOW IVP PRN (13:13)
[2019-03-31] MEDS: Sodium Chloride 0.9% 1,000 ML IV SCH (14:18)
[2019-03-31] MEDS ORDERED: ISOVUE-370 76%-LOCM 1 ML ONE (14:18)
[2019-03-31] MEDS: Piperacillin/Tazobactam 3.375 GM in Sodium Chloride 0.9% 100 ML IVPB SCH ×2 (14:19→20:55)
[2019-03-31] MEDS: Carbidopa/Levodopa 25-100 mg Tablet PO SCH ×2 (14:21→22:20)
[2019-03-31] MEDS ORDERED: Midodrine HCl 5 MG TAB PO PRN (15:00)
[2019-03-31 15:46] LABS: Troponin I Less than 0.010 ng/mL (< 0.028)
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
[2019-03-31 17:41] LABS: Bilirubin Negative (Negative); Blood, Urine Negative (Negative); Clarity CLEAR (Clear); Glucose, Urine (Dipstick) Negative (Negative); Leukocyte Trace (Negative); Nitrite Negative (Negative); Protein, Urine (Dipstick) Negative (Neg-Trace); Urobilinogen 0.2 mg/dL (0.2-1.0); pH, Urine 5.5 (5.0-9.0)
[2019-03-31 17:51] LABS: Bacteria/HPF None Seen HPF (None Seen); Hyaline Casts/LPF 4-6 HYALINE CAST LPF (0-3 Hyaline); Pathc Cast-AUWi Flag 0.68 (0-2.49); RBC/HPF 0-3 HPF (0-3)
[2019-03-31 18:17] LABS: Specific Gravity, Urine 1.056 (1.002-1.036); Yeast-All Forms None Seen HPF (None Seen)
[2019-03-31 18:18] LABS: Urine Culture Reflex No No
[2019-03-31] MEDS: Famotidine 20 MG TAB PO SCH (22:20)
[2019-04-01] MEDS: Piperacillin/Tazobactam 3.375 GM in Sodium Chloride 0.9% 100 ML IVPB SCH ×4 (03:12→19:18)
[2019-04-01] MEDS: Sodium Chloride 0.9% 1,000 ML IV SCH (03:23)
[2019-04-01 05:02] LABS: Anion Gap 16 mmol/L (10-20); BUN (Urea Nitrogen) 8 mg/dL (8.4-25.7); Calc. Creatinine Clearance 92 mL/min (70-130); Calcium 8.4 mg/dL (7.8-10.44); Carbon Dioxide 18 mmol/L (23-31); Chloride 105 mmol/L (98-107); Estimated GFR-MDRD Greater than 90; Glucose 70 mg/dL (83-110); Potassium 3.9 mmol/L (3.5-5.1); Sodium 135 mmol/L (136-145)
[2019-04-01 05:28] LABS: Hemoglobin 12.4 g/dL (14.0-18.0); Lymphocytes 16 % (21-51); MDiff Complete? YES; Mean Corpuscular HGB CONC 31.9 g/dL (32.0-36.0); Mean Corpuscular Hemoglobin 28.9 pg (27.0-31.0); Mean Corpuscular Volume 90.7 fL (78.0-98.0); Mean Platelet Volume 8.6 fL (7.4-10.4); Monocytes 7 % (0-10); Neutrophil 74 % (42-75); Platelet Count 170 thou/uL (130-400); RBC Distribution Width 14.6 % (11.5-14.5); Reactive Lymphocytes 3 % (0-10); Red Blood Cell (RBC) Count 4.29 mill/uL (4.70-6.10); White Blood Cell (WBC) Count 7.9 thou/uL (4.8-10.8)
[2019-04-01] MEDS ORDERED: Dextrose 5 % And 0.9 % NaCl 1,000 ML IV SCH (06:00)
[2019-04-01] MEDS ORDERED: traZODone HCl 50 MG TAB PO SCH (09:00)
[2019-04-01] MEDS: Famotidine 20 MG TAB PO SCH ×2 (09:24→20:13)
[2019-04-01] MEDS: Carbidopa/Levodopa 25-100 mg Tablet PO SCH ×3 (09:24→20:13)
[2019-04-01] MEDS: Docusate 100 MG CAP PO SCH (09:24)
[2019-04-01] MEDS: Polyethylene Glycol 3350 17 GM Packet PO SCH (09:49)
[2019-04-01] MEDS: Lactulose 10 GM/15 ML Oral Solution PO SCH (09:49)
--- NOTE | 2019-04-01 11:58 | PDOC.PN ---
- Subjective Encounter Start Date: 04/01/19 Encounter Start Time: 11:50 Subjective: f/u for suspected abd pain of unclear etiology and ? pneumonitis -: on Zosyn. No new events reported per nursing. - Objective Resuscitation Status - Order Detail: 03/31/19 11:30 Resuscitation Status Routine Resuscitation Status: FULL: Full Resuscitation MAR Reviewed: Yes Vital Signs & Weight: Vital Signs (12 hours) Temp Pulse Resp BP Pulse Ox 04/01/19 07:27 98.3 F 115 H 13 139/89 96 04/01/19 03:54 98.6 F 111 H 16 127/83 96 Weight Admit Weight 156 lb 3.2 oz Weight 156 lb 3.2 oz I&O: 03/31/19 04/01/19 04/02/19 06:59 06:59 06:59 Intake Total 1525 Output Total 100 Balance 1425 Result Diagrams: 04/01/19 04:08 04/01/19 04:08 Additional Labs: Accuchecks 03/31/19 20:26 POC Glucose 88 Microbiology 03/31/19 11:09 Venous blood - Left Hand Blood Culture - Preliminary Specimen has been received and culture in progress. No Growth to date. 03/31/19 11:04 Venous blood - Left Arm Blood Culture - Preliminary Specimen has been received and culture in progress. No Growth to date. EKG Reviewed by me: Yes (Tele - sinus tach in low 100's) Phys Exam - Physical Examination mumbles and opens eyes briefly HEENT: PERRLA, sclera anicteric, oral pharynx no lesions Neck: no nodes, no JVD, supple, full ROM Respiratory: no wheezing, no rales, no rhonchi, clear to auscultation bilateral tachycardic S1, S2 Cardiovascular: no significant murmur, no rub, gallop Gastrointestinal: soft, non-tender, no distention, positive bowel sounds Musculoskeletal: no edema, pulses present Neurological: moves all 4 limbs A x O x 1 Skin: normal turgor, cap refill <2 seconds Dx/Plan (1) Abdominal pain Code(s): R10.9 - UNSPECIFIED ABDOMINAL PAIN Status: Acute Qualifiers: Abdominal location: generalized Qualified Code(s): R10.84 - Generalized abdominal pain Comment: Questionable presentation, work up unrevealing, supportive mgmt, IVF's another 24h, pain control as clinically indicated (2) Pneumonitis Code(s): J18.9 - PNEUMONIA, UNSPECIFIED ORGANISM Status: Acute Comment: ? infiltrate, continue Zosyn (3) Dementia Code(s): F03.90 - UNSPECIFIED DEMENTIA WITHOUT BEHAVIORAL DISTURBANCE Status: Chronic Qualifiers: Dementia type: Parkinson's disease Dementia behavioral disturbance: without behavioral disturbance Qualified Code(s): G20 - Parkinson's disease; F02.80 - Dementia in other diseases classified elsewhere without behavioral disturbance Comment: Resume Sinemet (4) Bedbound Code(s): Z74.01 - BED CONFINEMENT STATUS Status: Chronic Comment: Appears near baseline - Plan continue antibiotics, PT/OT, rn social services, speech therapy, DVT proph w/SCDs Stable currently -: Continue Zosyn -: Continue IVF NS @ 75ml/h -: Speech therapy for dysphagia screening -: Resume Metoprolol 25mg daily * Convert to inpt status
[2019-04-01] MEDS: Dextrose 5 % And 0.9 % NaCl 1,000 ML IV SCH ×2 (14:20→18:30)
[2019-04-01] MEDS: traZODone HCl 50 MG TAB PO SCH (20:13)
[2019-04-02] MEDS: Piperacillin/Tazobactam 3.375 GM in Sodium Chloride 0.9% 100 ML IVPB SCH ×4 (02:00→20:50)
[2019-04-02] MEDS: Dextrose 5 % And 0.9 % NaCl 1,000 ML IV SCH ×2 (05:31→20:51)
[2019-04-02] MEDS ORDERED: Dextrose 5 % And 0.9 % NaCl 1,000 ML IV SCH (07:55)
[2019-04-02] MEDS: Docusate 100 MG CAP PO SCH (09:08)
[2019-04-02] MEDS: Tamsulosin HCl 0.4 MG CAP PO SCH (09:09)
[2019-04-02] MEDS: Famotidine 20 MG TAB PO SCH ×2 (09:09→20:50)
[2019-04-02] MEDS: Carbidopa/Levodopa 25-100 mg Tablet PO SCH ×3 (09:09→20:50)
[2019-04-02] MEDS: Lactulose 10 GM/15 ML Oral Solution PO SCH (09:13)
[2019-04-02] MEDS: Polyethylene Glycol 3350 17 GM Packet PO SCH (09:14)
--- NOTE | 2019-04-02 11:49 | PDOC.PN ---
- Subjective Encounter Start Date: 04/02/19 Encounter Start Time: 11:45 Subjective: f/u abd pain and ? pneumonitis on Zosyn empirically. - Objective Resuscitation Status - Order Detail: 03/31/19 11:30 Resuscitation Status Routine Resuscitation Status: FULL: Full Resuscitation MAR Reviewed: Yes Vital Signs & Weight: Vital Signs (12 hours) Temp Pulse Resp BP Pulse Ox 04/02/19 08:16 98.5 F 93 18 130/82 97 04/02/19 03:53 97.5 F L 95 20 124/79 97 Weight Admit Weight 156 lb 3.2 oz Weight 156 lb 3.2 oz I&O: 04/01/19 04/02/19 04/03/19 06:59 06:59 06:59 Intake Total 1525 2150 Output Total 100 Balance 1425 2150 Result Diagrams: 04/01/19 04:08 04/01/19 04:08 Additional Labs: Microbiology 03/31/19 11:09 Venous blood - Left Hand Blood Culture - Preliminary Specimen has been received and culture in progress. No Growth to date. 03/31/19 11:04 Venous blood - Left Arm Blood Culture - Preliminary Specimen has been received and culture in progress. No Growth to date. EKG Reviewed by me: Yes (Tele - SR in 90's) Phys Exam - Physical Examination Constitutional: NAD alert, responds slowly to questions HEENT: PERRLA, sclera anicteric, oral pharynx no lesions Neck: no nodes, no JVD, supple, full ROM Respiratory: no wheezing, no rales, no rhonchi, clear to auscultation bilateral S1, S2 Cardiovascular: RRR, no significant murmur, no rub, gallop Gastrointestinal: soft, non-tender, no distention, positive bowel sounds Musculoskeletal: no edema, pulses present Neurological: normal sensation, moves all 4 limbs A x O x 2 Skin: normal turgor, cap refill <2 seconds Dx/Plan (1) Abdominal pain Code(s): R10.9 - UNSPECIFIED ABDOMINAL PAIN Status: Acute Qualifiers: Abdominal location: generalized Qualified Code(s): R10.84 - Generalized abdominal pain Comment: Questionable presentation, work up unrevealing, supportive mgmt, IVF's another 24h, pain control as clinically indicated, monitor po intake (2) Pneumonitis Code(s): J18.9 - PNEUMONIA, UNSPECIFIED ORGANISM Status: Acute Comment: ? infiltrate, continue Zosyn (3) Dementia Code(s): F03.90 - UNSPECIFIED DEMENTIA WITHOUT BEHAVIORAL DISTURBANCE Status: Chronic Qualifiers: Dementia type: Parkinson's disease Dementia behavioral disturbance: without behavioral disturbance Qualified Code(s): G20 - Parkinson's disease; F02.80 - Dementia in other diseases classified elsewhere without behavioral disturbance Comment: Resume Sinemet (4) Bedbound Code(s): Z74.01 - BED CONFINEMENT STATUS Status: Chronic Comment: Appears near baseline, PT for functional assessment - Plan continue antibiotics, PT/OT, social work assistant, out of bed/ambulate, DVT proph w/ SCDs Stable currently -: Encourage increased po intake -: PT for functional assessment -: Decrease IVF's 50ml/h -: Likely back to [facility] in 24-48h * .
[2019-04-02] MEDS: traZODone HCl 50 MG TAB PO SCH (20:50)
[2019-04-03] MEDS: Piperacillin/Tazobactam 3.375 GM in Sodium Chloride 0.9% 100 ML IVPB SCH ×4 (02:00→20:50)
[2019-04-03] MEDS: Famotidine 20 MG TAB PO SCH ×2 (09:26→20:51)
[2019-04-03] MEDS: Carbidopa/Levodopa 25-100 mg Tablet PO SCH ×3 (09:26→20:51)
[2019-04-03] MEDS: Docusate 100 MG CAP PO SCH (09:26)
[2019-04-03] MEDS: Tamsulosin HCl 0.4 MG CAP PO SCH (09:27)
[2019-04-03] MEDS: Lactulose 10 GM/15 ML Oral Solution PO SCH (09:33)
[2019-04-03] MEDS: Polyethylene Glycol 3350 17 GM Packet PO SCH (09:35)
--- NOTE | 2019-04-03 12:36 | PDOC.PN ---
- Subjective Encounter Start Date: 04/03/19 Encounter Start Time: 12:30 Subjective: f/u for abd pain and suspected RLL pneumonitis on Zosyn. More awake -: and responsive per nursing. - Objective Resuscitation Status - Order Detail: 03/31/19 11:30 Resuscitation Status Routine Resuscitation Status: FULL: Full Resuscitation MAR Reviewed: Yes Vital Signs & Weight: Vital Signs (12 hours) Temp Pulse Pulse Pulse Resp BP BP 04/03/19 11:53 98.1 F 76 16 04/03/19 10:15 85 82 117/69 95/62 04/03/19 07:04 97.7 F 84 18 04/03/19 03:56 98.8 F 85 15 BP Pulse Ox 04/03/19 11:53 141/88 H 99 04/03/19 10:15 04/03/19 07:04 148/79 H 97 04/03/19 03:56 130/83 97 Weight Admit Weight 156 lb 3.2 oz Weight 156 lb I&O: 04/02/19 04/03/19 04/04/19 06:59 06:59 06:59 Intake Total 2149 2013 Balance 2149 2013 Result Diagrams: 04/01/19 04:08 04/01/19 04:08 EKG Reviewed by me: Yes (Tele - SR) Phys Exam - Physical Examination Constitutional: NAD HEENT: PERRLA, sclera anicteric, oral pharynx no lesions Neck: no nodes, no JVD, supple, full ROM Respiratory: no wheezing, no rales, no rhonchi, clear to auscultation bilateral S1, S2 Cardiovascular: RRR, no significant murmur, no rub, gallop Gastrointestinal: soft, non-tender, no distention, positive bowel sounds Musculoskeletal: no edema, pulses present Neurological: moves all 4 limbs A x O x 2 Skin: normal turgor, cap refill <2 seconds Dx/Plan (1) Abdominal pain Code(s): R10.9 - UNSPECIFIED ABDOMINAL PAIN Status: Acute Qualifiers: Abdominal location: generalized Qualified Code(s): R10.84 - Generalized abdominal pain Comment: Questionable presentation, work up unrevealing, supportive mgmt, IVF's another 24h, pain control as clinically indicated, monitor po intake, Ensure TID (2) Pneumonitis Code(s): J18.9 - PNEUMONIA, UNSPECIFIED ORGANISM Status: Acute Comment: ? infiltrate, continue Zosyn, suspected (3) Dementia Code(s): F03.90 - UNSPECIFIED DEMENTIA WITHOUT BEHAVIORAL DISTURBANCE Status: Chronic Qualifiers: Dementia type: Parkinson's disease Dementia behavioral disturbance: without behavioral disturbance Qualified Code(s): G20 - Parkinson's disease; F02.80 - Dementia in other diseases classified elsewhere without behavioral disturbance Comment: Resume Sinemet (4) Bedbound Code(s): Z74.01 - BED CONFINEMENT STATUS Status: Chronic Comment: Appears near baseline, PT for functional assessment - Plan continue antibiotics, PT/OT, psych social worker, speech therapy, DVT proph w/SCDs Stable currently -: Continue Zosyn another 24h -: Continue IVF's another 24h -: Ensure TID -: Likely d/c to [facility] in 24h * .
[2019-04-03] MEDS: Dextrose 5 % And 0.9 % NaCl 1,000 ML IV SCH (17:45)
[2019-04-03] MEDS: traZODone HCl 50 MG TAB PO SCH (20:51)
[2019-04-04] MEDS: Piperacillin/Tazobactam 3.375 GM in Sodium Chloride 0.9% 100 ML IVPB SCH ×3 (01:53→12:40)
[2019-04-04] MEDS: Carbidopa/Levodopa 25-100 mg Tablet PO SCH ×2 (09:26→15:17)
[2019-04-04] MEDS: Polyethylene Glycol 3350 17 GM Packet PO SCH (09:26)
[2019-04-04] MEDS: Famotidine 20 MG TAB PO SCH (09:26)
[2019-04-04] MEDS: Docusate 100 MG CAP PO SCH (09:26)
[2019-04-04] MEDS: Lactulose 10 GM/15 ML Oral Solution PO SCH (09:26)
[2019-04-04] MEDS: Tamsulosin HCl 0.4 MG CAP PO SCH (09:26)
--- NOTE | 2019-04-04 13:10 | DIS ---
DATE OF ADMISSION: 04/01/2019 DATE OF DISCHARGE: 04/04/2019 DISCHARGE DIAGNOSES: 1. Abdominal pain, etiology unclear, resolved. 2. Pneumonitis, suspected, improved. 3. Dementia. 4. Parkinson disease. 5. Bedbound status. CONSULTATIONS: None. PERTINENT LABORATORY AND X-RAY FINDINGS: Lactic acid level 1.3. Troponin I negative x3. BNP 20. Lipase 20. CBC showed a white blood cell count ranging between 7.9 to 8.7. Blood cultures x2 dated 03/31/2019, showed no growth at 48 hours. Acute abdominal series dated 03/31/2019, showed no acute process. CT of the abdomen and pelvis dated 03/31/2019 showed patchy parenchymal changes in the right lower lobe with potential pneumonitis. HOSPITAL COURSE: The patient was initially admitted after presenting with suspected abdominal pain, undergoing CT of the abdomen and pelvis in addition to plain radiographic imaging showing questionable early infiltrate in the right lower lobe concerning for pneumonitis. The patient with recent diagnosis and treatment for acute diverticulitis, however, no specific evidence of recurrence or persistence of diverticulitis noted on CT imaging. The patient was placed on Zosyn for suspected pneumonitis and given IV fluid hydration. The patient clinically improved within approximately 48 to 72 hours with blood cultures remaining negative x2. The patient received general supportive management in addition to evaluation by the Speech Therapy Service. The patient was placed on a modified textured diet including nectar thick liquids tolerating without difficulty. The patient continued to clinically stabilized at baseline functional status with supportive management. Telemetry monitoring showed sinus mechanism without evidence of acute arrhythmia or dysrhythmia. Overall, the patient did remain clinically stable throughout the hospital course. I have examined the patient at the time of discharge and discussed followup and disposition instructions. The patient verbalized understanding and in agreement, and ready for discharge on 04/04/2019. DISCHARGE MEDICATIONS: 1. Levaquin 500 mg p.o. daily x5 days. 2. Lipitor 10 mg p.o. at bedtime. 3. Carbidopa/levodopa 25/100 mg 1 tablet p.o. t.i.d. 4. Colace 200 mg p.o. daily. 5. Vitamin D2 of 50,000 units one capsule p.o. q.7 days. 6. Toprol XL 25 mg p.o. daily. 7. Midodrine 5 mg p.o. t.i.d. p.r.n. for blood pressure of 100/60 or less. 8. Omeprazole 40 mg p.o. daily. 9. Flomax 0.4 mg p.o. daily. 10. Trazodone 50 mg p.o. daily. 11. Nystatin powder apply topically p.r.n. FOLLOWUP: The patient may follow up with his primary care provider, Dr. Veena Chambers. CONDITION ON DISCHARGE: Fair. ACTIVITY: Ad-charles. DIET: Mechanical soft with ground meat and no bread. [place] thick liquids. Small sips by cup. SPECIAL INSTRUCTIONS: Recommend ongoing physical, occupational, and speech therapy. CODE STATUS: Full. DISPOSITION: Discharged to [facility] on 04/04/2019. TIME SPENT: Total time preparing and coordinating discharge, 33 minutes. Job ID: [id number]
[2019-04-04 15:22] VITALS: BP 103/74; TEMP 98.2
[2019-04-04] MEDS: Dextrose 5 % And 0.9 % NaCl 1,000 ML IV SCH (18:13)
--- NOTE | 2019-04-05 09:24 | PQF ---
HAYDE DUGAN MERRICK ALVAREZ DO [id number] CLINICAL DOCUMENTATION IMPROVEMENT CLARIFICATION FORM: ICD-10 Updated PLEASE DO AN ADDENDUM TO THE PROGRESS NOTE WITH ANY DOCUMENTATION UPDATES OR ADDITIONS AND CARRY THROUGH TO DC SUMMARY. THANK YOU. DATE: 04-05-19 ATTN: DR. ALVAREZ Please exercise your independent, professional judgment in responding to the clarification form. Clinical indicators are provided on the bottom of this form for your review Please check appropriate box(s): [ ] I (concur) with Nursing Assessment as stated below. [ ] Pressure Ulcer: (Stage I: Erythema; Stage II: Partial thickness; Stage III : Full thickness; Stage IV: Necrosis to muscle/bone) Location: POA: [ ] Yes [ ] No[ ] Unable to determine Stage (I to IV): (Left Right Bilateral_ ____ N/A ) [ ] No pressure ulcer diagnosis [ ] Deep tissue injury [ ] Other diagnosis [ ] Unable to determine In addition, please specify: Present on Admission (POA): [ ] Yes [ ] No [ ] Unable to determine For continuity of documentation, please document condition throughout progress notes and discharge summary. Thank You. CLINICAL INDICATORS - SIGNS / SYMPTOMS / LABS 03-31 Wound Photo Note 04-01 NURSES ASSESSMENT: PU STAGE 2 SACROCOCCYGEAL - MEPILEX DRESSING - TURN Q2 RISK FACTORS: 03-31 (KIM): * ADVANCED PARKINSON'S DX/DEMENTIA; * NONAMBULATORY STATUS TREATMENTS: 04-01 NURSES ASSESSMENT: MEPILEX DRESSING - TURN Q2 THANK YOU, MARIELLA (This form is maintained as a part of the permanent medical record) 2015 [employer]. All Rights Reserved Mariella Padilla RN, BS [email or web address] [facility]
== END 2019-04-04 19:39 | DRG 391 ==
LOC: ERS 08:16 → INTOOBSV 11:30 → ERHOLD 11:30 → 2NO 13:00 → OBSVTOIN 04-01 12:06
PROVIDERS: ADMIT Family Medicine; ATTEND Family Medicine
DX: R10.9 Unspecified abdominal pain (principal); J18.9 Pneumonia, unspecified organism; G20 Parkinson's disease; K59.09 Other constipation; N40.0 Benign prostatic hyperplasia without lower urinary tract symptoms; I10 Essential (primary) hypertension; E78.5 Hyperlipidemia, unspecified; F02.80 Dementia in other diseases classified elsewhere, unspecified severity, without behavioral disturbance, psychotic disturbance, mood disturbance, and anxiety; K21.9 Gastro-esophageal reflux disease without esophagitis; Z79.899 Other long term (current) drug therapy; Z74.01 Bed confinement status
CPT/HCPCS: 36415; 36416; 74022; 74177; 80048; 80053; 81001; 83605; 83690; 83880; 84484; 85007; 85025; 85027; 87040; 93005; 96361; 96365; J0696; J2543; J3490; Q9966

== ENCOUNTER 2019-07-31 13:39 | Emergency (ER) | payer MEDICARE, MEDICAID | END 2019-07-31 16:00 | LOC: ERS 13:39 | DX: B35.6 Tinea cruris (principal); I10 Essential (primary) hypertension; E78.5 Hyperlipidemia, unspecified; K21.9 Gastro-esophageal reflux disease without esophagitis; N40.0 Benign prostatic hyperplasia without lower urinary tract symptoms; F03.90 Unspecified dementia, unspecified severity, without behavioral disturbance, psychotic disturbance, mood disturbance, and anxiety; Z79.899 Other long term (current) drug therapy | CPT/HCPCS: 36416; 99283 ==

== ENCOUNTER 2019-11-06 14:28 | Inpatient (IN) | payer MEDICAID, MEDICARE ==
[2019-11-06 15:04] LABS: #Eosinphils 0.1 thou/uL (0.0-0.7); #Lymphocytes 1.5 thou/uL (1.20-3.40); #Monocytes 0.6 thou/uL (0.11-0.59); #Neutrophils 5.4 thou/uL (1.40-6.50); %Basophils 0.1 % (0.0-1.0); %Eosinophils 1.8 % (0.0-10.0); %Lymphocytes 19.5 % (21.0-51.0); %Monocytes 7.9 % (0.0-10.0); %Neutrophils 70.7 % (42.0-75.0); Hemoglobin 14.7 g/dL (14.0-18.0); Mean Corpuscular HGB CONC 32.4 g/dL (32.0-36.0); Mean Corpuscular Hemoglobin 28.5 pg (27.0-31.0); Mean Corpuscular Volume 87.7 fL (78.0-98.0); Mean Platelet Volume 7.8 fL (7.4-10.4); Platelet Count 254 thou/uL (130-400); RBC Distribution Width 14.5 % (11.5-14.5); Red Blood Cell (RBC) Count 5.18 mill/uL (4.70-6.10); White Blood Cell (WBC) Count 7.6 thou/uL (4.8-10.8)
[2019-11-06 15:18] LABS: ALT (SGPT) 8 U/L (8-55); AST (SGOT) 12 U/L (5-34); Albumin 4.1 g/dL (3.4-4.8); Alkaline Phosphatase 68 U/L (40-110); Anion Gap 15 mmol/L (10-20); BUN (Urea Nitrogen) 19 mg/dL (8.4-25.7); Bilirubin, Total 0.4 mg/dL (0.2-1.2); CK (CPK) 113 U/L (30-200); Calc. Creatinine Clearance 0 mL/min (70-130); Calcium 9.5 mg/dL (7.8-10.44); Carbon Dioxide 26 mmol/L (23-31); Chloride 105 mmol/L (98-107); Estimated GFR-MDRD 84; Globulin 3.9 g/dL (2.4-3.5); Glucose 119 mg/dL (83-110); Potassium 4.4 mmol/L (3.5-5.1); Sodium 142 mmol/L (136-145)
--- NOTE | 2019-11-06 15:19 | CT ---
EXAM: CT brain without contrast HISTORY: Altered mental status and weakness COMPARISON: 02/22/2019 TECHNIQUE: Multiple contiguous axial images were obtained and a CT of the brain without contrast. FINDINGS: The brain is normal in morphology and attenuation without focal lesions or confluent areas of infarction. There is no evidence of hydrocephalus, intracranial hemorrhage, or extra-axial fluid collection. The calvarium and overlying soft tissues are unremarkable. Fluid is seen in the right maxillary sinus . The other paranasal sinuses and mastoid air cells are well aerated. IMPRESSION: No evidence of acute intracranial abnormality
[2019-11-06 15:40] LABS: CKMB 1.2 ng/mL (0-6.6)
--- NOTE | 2019-11-06 15:48 | RAD ---
EXAM: Single view of the chest HISTORY: Chest pain and productive cough COMPARISON: 02/22/2019 FINDINGS: Single view of the chest shows a normal sized cardiomediastinal silhouette. Atheroscleroti c calcifications are seen in the aorta. There is no evidence of consolidation, mass, or pleural effusion. The bones are unremarkable. IMPRESSION: No evidence of acute cardiopulmonary disease
--- NOTE | 2019-11-06 17:38 | PDOC.HHP ---
Hospitalist HPI - History of Present Illness AMS History of Present Illness: Mr. Falk is a 74 y/o gentleman with PMH of parkinson's dementia, neurosyphilis , [facility] who presnted to the ED for altered mental status. As per daughter, the [facility] staff called her because they thought he was more altered compared to his baseline. Daughter states normally, he calls her daily but for the past 4 days has not been calling her. She states when she saw him, he was confused and not responding like he normally does. He has parkinson' s dementia but she states he normally talks to her normally on the phone and even dials the phone himself. Additionally, she notes that he has had a cough for 4 days non productive of sputum. States in the past, he has had urine infections before and becomes altered like he is now. No fever, chills, diarrhea , nausea, vomiting is reported by nursing staff at the [facility]. Hospitalist ROS - Review of Systems ROS unobtainable: due to mental status - Medication Medications: Medication Instructions Recorded Confirmed Type Carbidopa/Levodopa [Parcopa 25/100] 1 tab PO TID 07/14/17 03/31/19 History Docusate [Colace] 2 tab PO DAILY 07/14/17 03/31/19 History Ergocalciferol (Vitamin D2) 1 capsule PO Q7D 07/14/17 03/31/19 History [Vitamin D2] Omeprazole 1 capsule PO 0600 07/14/17 03/31/19 History Atorvastatin Calcium [Lipitor] 1 tab PO HS 02/09/19 03/31/19 History Mag Hydrox/Aluminum Hyd/Simeth 1 each PO TID PRN 02/09/19 03/31/19 History [Mag-Al Plus XS Suspension] Magnesium Hydroxide [Milk of 30 ml PO HS 02/09/19 03/31/19 History Magnesia] Midodrine HCl [ProAmatine] 1 tab PO TID PRN 02/09/19 03/31/19 History traZODone HCl [Trazodone HCl] 1 tab PO DAILY 02/09/19 03/31/19 History Nystatin [Mycostatin Powder] 0 gm TOP BID PRN bot 02/21/19 03/31/19 Rx Acetaminophen [Pain Relief] 500 mg PO Q6H PRN 03/31/19 03/31/19 History Docusate Sodium [Stool Softener] 100 mg PO DAILY PRN 03/31/19 03/31/19 History Metoprolol Succinate [Toprol XL] 25 mg PO DAILY 03/31/19 03/31/19 History Tamsulosin HCl [Flomax] 0.4 mg PO DAILY 03/31/19 03/31/19 History Levofloxacin [Levaquin] 500 mg PO DAILY #5 tab 04/04/19 Rx Hospitalist History - Past Medical History Source: family Cardiac: reports: HTN Pulmonary: reports: no pertinent history 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, Other (Neurosyphilis, Parkinson's) Gastrointestinal: reports: no pertinent history Heme/Onc: reports: no pertinent history Hepatobiliary: reports: no pertinent history Psych: reports: no pertinent history Musculoskeletal: reports: no pertinent history Rheumatologic: reports: no pertinent history Infectious Disease: reports: no pertinent history - Past Surgical History Past Surgical History: reports: no pertinent history - Family History Family History: reports: no pertinent history - Social History Smoking Status: Never smoker Alcohol: reports: None Drugs: reports: none Living Situation: Longterm - Exam General Appearance: awake alert General - other findings: Alert to person, but not place or time Eye: PERRL, anicteric sclera ENT: normocephalic atraumatic, no oropharyngeal lesions, moist mucosa ENT - other findings: Dry mucus membranes Neck: supple, symmetric, no JVD, no thyromegaly, no lymphadenopathy, no carotid bruit Heart: RRR, no murmur, no gallops, no rubs, normal peripheral pulses Respiratory: CTAB, no wheezes, no rales, no ronchi, normal chest expansion, no tachypnea, normal percussion Gastrointestinal: soft, non-tender, non-distended, normal bowel sounds, no palpable masses, no hepatomegaly, no splenomegaly, no bruit Extremities: no cyanosis, no clubbing, no edema Skin: normal turgor, no lesions, no rashes Neurological: cranial nerve grossly intact, normal sensation to touch, no focal deficits, no new deficit Neurological - other findings: bedbound, bradykinesia, parkinson's resting tremor Musculoskeletal: diffuse muscle atrophy Psychiatric: oriented to person, flat affect Hospitalist Results - Labs Result Diagrams: 11/06/19 14:52 11/06/19 14:52 Lab results: WBC 7.6 thou/uL (4.8-10.8) 11/06/19 14:52 Hgb 14.7 g/dL (14.0-18.0) 11/06/19 14:52 Hct 45.4 % (42.0-52.0) 11/06/19 14:52 MCV 87.7 fL (78.0-98.0) 11/06/19 14:52 Plt Count 254 thou/uL (130-400) 11/06/19 14:52 Neutrophils % 70.7 % (42.0-75.0) 11/06/19 14:52 Sodium 142 mmol/L (136-145) 11/06/19 14:52 Potassium 4.4 mmol/L (3.5-5.1) 11/06/19 14:52 Chloride 105 mmol/L (98-107) 11/06/19 14:52 Carbon Dioxide 26 mmol/L (23-31) 11/06/19 14:52 BUN 19 mg/dL (8.4-25.7) 11/06/19 14:52 Creatinine 1.05 mg/dL (0.7-1.3) 11/06/19 14:52 Glucose 119 mg/dL (83-110) H 11/06/19 14:52 Calcium 9.5 mg/dL (7.8-10.44) 11/06/19 14:52 Total Bilirubin 0.4 mg/dL (0.2-1.2) 11/06/19 14:52 AST 12 U/L (5-34) 11/06/19 14:52 ALT 8 U/L (8-55) 11/06/19 14:52 Alkaline Phosphatase 68 U/L (40-110) 11/06/19 14:52 Ammonia 52 umol/L (18-72) 11/06/19 14:53 Creatine Kinase 113 U/L (30-200) 11/06/19 14:52 CK-MB (CK-2) 1.2 ng/mL (0-6.6) 11/06/19 14:52 Troponin I 0.040 ng/mL (< 0.028) H 11/06/19 14:52 B-Natriuretic Peptide 18.2 pg/mL (0-100) 11/06/19 14:52 Serum Total Protein 8.0 g/dL (5.8-8.1) 11/06/19 14:52 Albumin 4.1 g/dL (3.4-4.8) 11/06/19 14:52 - EKG Interpretation EK lead EKG shows normal sinus rhythm, Rate (beats per minute): 100, Mitchell, left , Artifact NE interval 190 ms QRS duration 72 ms. - Radiology Interpretation Chest x-ray Status: report reviewed by me Hospitalist H&P A/P - Problem (1) Acute encephalopathy Code(s): G93.40 - ENCEPHALOPATHY, UNSPECIFIED Status: Acute (2) Urinary tract infection Status: Acute (3) Parkinsons disease Code(s): G20 - PARKINSON'S DISEASE Status: Chronic (4) Bedbound Code(s): Z74.01 - BED CONFINEMENT STATUS Status: Chronic (5) GERD (gastroesophageal reflux disease) Code(s): K21.9 - GASTRO-ESOPHAGEAL REFLUX DISEASE WITHOUT ESOPHAGITIS Status: Chronic Qualifiers: Esophagitis presence: esophagitis presence not specified Qualified Code(s) : K21.9 - Gastro-esophageal reflux disease without esophagitis (6) HTN (hypertension) Code(s): I10 - ESSENTIAL (PRIMARY) HYPERTENSION Status: Chronic Qualifiers: - Plan Plan: Admit for medical obs. Patient acutely altered from baseline. UA suggestive of highly elevated LE, 4+ bacteria, in urine Empiric Ceftriaxone, pending urine culture NS @ 75ml/hr Speech eval, pt apparently has been having difficulty with [facility]ag[facility] per daughter Pending medication reconciliation DVT Prophylaxis: SCDs Code status: DNR as per daughter ACP: surrogate decision maker is daughter. States she has advanced directives from her father. Disposition: Admit for observation. Tx of UTI
[2019-11-06 17:50] LABS: Bacteria/HPF 4+ HPF (None Seen); Bilirubin Negative (Negative); Blood, Urine Negative (Negative); Clarity Turbid (Clear); Glucose, Urine (Dipstick) Normal (Negative); Leukocyte 250 Leu/uL (Negative); Nitrite Negative (Negative); Protein, Urine (Dipstick) Negative (Neg-Trace); RBC/HPF 0-3 HPF (0-3); Squamous Epithelial None Seen HPF (0-3); Urobilinogen Normal mg/dL (Less than 2); WBC/HPF 21-50 HPF (0-3)
[2019-11-06 18:17] LABS: Troponin I Less than 0.010 ng/mL (< 0.028)
[2019-11-06] MEDS ORDERED: cefTRIAXone\\ROCEPHIN 1 GM VIAL ONE (18:19)
[2019-11-06 21:29] LABS: Troponin I 0.026 ng/mL (< 0.028)
[2019-11-06] MEDS: Sodium Chloride 0.9% 1,000 ML IV SCH (22:40)
[2019-11-07 00:50] VITALS: BMI 24.3
[2019-11-07] MEDS: Sodium Chloride 0.9% 1,000 ML IV SCH ×3 (06:09→22:06)
[2019-11-07] MEDS: Enoxaparin Sodium 40 MG/0.4 ML SYRINGE SC SCH (08:31)
[2019-11-07] MEDS ORDERED: Prevnar 13-Val Conj/PF 0.5 ML SYRINGE IM ONE (09:00)
[2019-11-07] MEDS: cefTRIAXone\\ROCEPHIN 1 GM in Sodium Chloride 0.9% 100 ML IVPB SCH (17:13)
--- NOTE | 2019-11-07 21:00 | PDOC.HOSPP ---
- Subjective Encounter Date: 11/07/19 Subjective: Much more alert today. No overnight events. States he has pain when he urinates. - Objective Vital Signs & Weight: Vital Signs (12 hours) Temp Pulse Resp BP Pulse Ox 11/07/19 20:00 99.0 F 94 16 116/73 94 L 11/07/19 16:00 98.6 F 96 18 129/85 94 L 11/07/19 12:00 98.7 F 96 16 130/87 93 L Weight Admit Weight 174 lb 2.643 oz Weight 174 lb 2.643 oz I&O: 11/06/19 11/07/19 11/08/19 06:59 06:59 06:59 Intake Total 1750 1200 Balance 1750 1200 Result Diagrams: 11/06/19 14:52 11/06/19 14:52 Hospitalist ROS - Review of Systems Respiratory: denies: cough, dry, shortness of breath, hemoptysis, SOB with excertion, pleuritic pain, sputum, wheezing, other Cardiovascular: denies: chest pain, palpitations, orthopnea, paroxysmal noc. dyspnea, edema, light headedness, other Gastrointestinal: denies: nausea, vomiting, abdominal pain, diarrhea, constipation, melena, hematochezia, other Neurological: denies: weakness, numbness, incoordination, change in speech, confusion, seizures, other - Medication Medications: Active Medications Generic Name Dose Route Start Last Admin Trade Name Freq PRN Reason Stop Dose Admin Enoxaparin Sodium 40 mg 11/07/19 09:00 11/07/19 08:31 Lovenox SC 40 mg 0900 ASHLEIGH Administration Sodium Chloride 1,000 mls @ 75 mls/hr 11/06/19 17:35 11/07/19 11:46 Normal Saline 0.9% IV 1,000 mls .[id number] ASHLEIGH Administration Ceftriaxone Sodium 1 gm/ 100 mls @ 200 mls/hr 11/07/19 18:00 11/07/19 17:13 Sodium Chloride IVPB 100 mls 1800 ASHLEIGH Administration - Exam General Appearance: NAD, ill appearing Eye: PERRL, anicteric sclera ENT: normocephalic atraumatic, no oropharyngeal lesions, moist mucosa Neck: supple, symmetric, no JVD, no thyromegaly, no lymphadenopathy, no carotid bruit Heart: RRR, no murmur, no gallops, no rubs, normal peripheral pulses Respiratory: CTAB, no wheezes, no rales, no ronchi, normal chest expansion, no tachypnea, normal percussion Gastrointestinal: soft, non-tender, non-distended, normal bowel sounds, no palpable masses, no hepatomegaly, no splenomegaly, no bruit Extremities: no cyanosis, no clubbing, no edema Skin: normal turgor, no lesions, no rashes Neurological: cranial nerve grossly intact, normal sensation to touch, no weakness, no focal deficits, no new deficit Musculoskeletal: normal tone, normal strength, no muscle wasting Psychiatric: normal affect, normal behavior, A&O x 3 Hosp A/P (1) Acute encephalopathy Code(s): G93.40 - ENCEPHALOPATHY, UNSPECIFIED Status: Acute (2) Urinary tract infection Status: Acute (3) Parkinsons disease Code(s): G20 - PARKINSON'S DISEASE Status: Chronic (4) Bedbound Code(s): Z74.01 - BED CONFINEMENT STATUS Status: Chronic (5) GERD (gastroesophageal reflux disease) Code(s): K21.9 - GASTRO-ESOPHAGEAL REFLUX DISEASE WITHOUT ESOPHAGITIS Status: Chronic Qualifiers: Esophagitis presence: esophagitis presence not specified Qualified Code(s) : K21.9 - Gastro-esophageal reflux disease without esophagitis (6) HTN (hypertension) Code(s): I10 - ESSENTIAL (PRIMARY) HYPERTENSION Status: Chronic Qualifiers: - Plan Continue with abx. AMS seems to be improving Disposition: Pending urine culture
[2019-11-08] MEDS: Enoxaparin Sodium 40 MG/0.4 ML SYRINGE SC SCH (10:02)
--- NOTE | 2019-11-08 11:01 | PDOC.HOSPP ---
- Subjective Subjective: AMS is better. Continues to be alert to person. States pain when he urinates is less. - Objective Vital Signs & Weight: Vital Signs (12 hours) Temp Pulse Resp BP BP Pulse Ox 11/08/19 08:00 98.1 F 92 16 135/85 96 11/08/19 07:56 98.1 F 92 16 135/85 96 11/08/19 03:53 98.8 F 97 20 130/85 96 11/07/19 23:55 98.7 F 80 16 137/94 H 94 L Weight Admit Weight 174 lb 2.643 oz Weight 174 lb I&O: 11/07/19 11/08/19 11/09/19 06:59 06:59 06:59 Intake Total 1750 2880 Balance 1750 2880 Result Diagrams: 11/06/19 14:52 11/06/19 14:52 Hospitalist ROS - Review of Systems Constitutional: denies: fever, chills, sweats, weakness, malaise, other Respiratory: denies: cough, dry, shortness of breath, hemoptysis, SOB with excertion, pleuritic pain, sputum, wheezing, other Cardiovascular: denies: chest pain, palpitations, orthopnea, paroxysmal noc. dyspnea, edema, light headedness, other Gastrointestinal: denies: nausea, vomiting, abdominal pain, diarrhea, constipation, melena, hematochezia, other - Medication Medications: Active Medications Generic Name Dose Route Start Last Admin Trade Name Freq PRN Reason Stop Dose Admin Enoxaparin Sodium 40 mg 11/07/19 09:00 11/08/19 10:02 Lovenox SC 40 mg 0900 ASHLEIGH Administration Sodium Chloride 1,000 mls @ 75 mls/hr 11/06/19 17:35 11/07/19 22:06 Normal Saline 0.9% IV 1,000 mls .[id number] ASHLEIGH Administration Ceftriaxone Sodium 1 gm/ 100 mls @ 200 mls/hr 11/07/19 18:00 11/07/19 17:13 Sodium Chloride IVPB 100 mls 1800 ASHLEIGH Administration - Exam General Appearance: awake alert, ill appearing General - other findings: Bebound, frail, elderly Eye: PERRL, anicteric sclera ENT: normocephalic atraumatic, no oropharyngeal lesions, moist mucosa Neck: supple, symmetric, no JVD, no thyromegaly, no lymphadenopathy, no carotid bruit Heart: RRR, no murmur, no gallops, no rubs, normal peripheral pulses Respiratory: CTAB, no wheezes, no rales, no ronchi, normal chest expansion, no tachypnea, normal percussion Gastrointestinal: soft, non-tender, non-distended, normal bowel sounds, no palpable masses, no hepatomegaly, no splenomegaly, no bruit Extremities: no cyanosis, no clubbing, no edema Skin: normal turgor, no lesions, no rashes Neurological: cranial nerve grossly intact, no weakness Neurological - other findings: Parkinson's bradykinesia and muscle atrophy noted Musculoskeletal: normal tone, normal strength, no muscle wasting Psychiatric: normal affect, normal behavior, oriented to person, flat affect Hosp A/P (1) Acute encephalopathy Code(s): G93.40 - ENCEPHALOPATHY, UNSPECIFIED Status: Acute Plan: Improved (2) Urinary tract infection Status: Acute (3) Parkinsons disease Code(s): G20 - PARKINSON'S DISEASE Status: Chronic (4) Bedbound Code(s): Z74.01 - BED CONFINEMENT STATUS Status: Chronic (5) GERD (gastroesophageal reflux disease) Code(s): K21.9 - GASTRO-ESOPHAGEAL REFLUX DISEASE WITHOUT ESOPHAGITIS Status: Chronic Qualifiers: Esophagitis presence: esophagitis presence not specified Qualified Code(s) : K21.9 - Gastro-esophageal reflux disease without esophagitis (6) HTN (hypertension) Code(s): I10 - ESSENTIAL (PRIMARY) HYPERTENSION Status: Chronic Qualifiers: - Plan Continue with abx. Given history of recurrent UTIs would be advisable to await urine culture preliminary result AMS improving Disposition: Pending urine culture, likely d/c in the next 24 hours pending speciation/susceptibility.
[2019-11-08] MEDS: Sodium Chloride 0.9% 1,000 ML IV SCH (13:03)
[2019-11-08] MEDS: cefTRIAXone\\ROCEPHIN 1 GM in Sodium Chloride 0.9% 100 ML IVPB SCH ×2 (20:40→20:52)
[2019-11-09] MEDS: Sodium Chloride 0.9% 1,000 ML IV SCH ×2 (03:34→12:49)
[2019-11-09] MEDS: Enoxaparin Sodium 40 MG/0.4 ML SYRINGE SC SCH (09:03)
--- NOTE | 2019-11-09 15:37 | PDOC.HOSPP ---
- Subjective Subjective: AMS improving. No overnigtht complaints. No reported issues. - Objective Vital Signs & Weight: Vital Signs (12 hours) Temp Pulse Resp BP Pulse Ox 11/09/19 08:28 97.4 F L 86 16 148/89 H 96 Weight Admit Weight 174 lb 2.643 oz Weight 174 lb I&O: 11/08/19 11/09/19 11/10/19 06:59 06:59 06:59 Intake Total 2880 3240 Balance 2880 3240 Result Diagrams: 11/06/19 14:52 11/06/19 14:52 Hospitalist ROS - Review of Systems Constitutional: denies: fever, chills, sweats, weakness, malaise, other Respiratory: denies: cough, dry, shortness of breath, hemoptysis, SOB with excertion, pleuritic pain, sputum, wheezing, other Cardiovascular: denies: chest pain, palpitations, orthopnea, paroxysmal noc. dyspnea, edema, light headedness, other Gastrointestinal: denies: nausea, vomiting, abdominal pain, diarrhea, constipation, melena, hematochezia, other - Medication Medications: Active Medications Generic Name Dose Route Start Last Admin Trade Name Freq PRN Reason Stop Dose Admin Enoxaparin Sodium 40 mg 11/09/19 09:00 11/09/19 09:03 Lovenox SC 40 mg 0900 ASHLEIGH Administration Sodium Chloride 1,000 mls @ 75 mls/hr 11/06/19 17:35 11/09/19 12:49 Normal Saline 0.9% IV 1,000 mls .[id number] ASHLEIGH Administration Ceftriaxone Sodium 1 gm/ 100 mls @ 200 mls/hr 11/08/19 21:00 11/08/19 20:52 Sodium Chloride IVPB 100 mls 2100 ASHLEIGH Administration - Exam General Appearance: NAD, awake alert Eye: PERRL ENT: normocephalic atraumatic Neck: supple, no JVD Heart: RRR, no murmur, no gallops Respiratory: CTAB, no wheezes, no rales Gastrointestinal: soft, non-tender, normal bowel sounds Extremities: no cyanosis Neurological: no focal deficits Musculoskeletal: normal tone Psychiatric: normal affect Hosp A/P (1) Acute encephalopathy Code(s): G93.40 - ENCEPHALOPATHY, UNSPECIFIED Status: Acute (2) Urinary tract infection Status: Acute (3) Parkinsons disease Code(s): G20 - PARKINSON'S DISEASE Status: Chronic (4) Bedbound Code(s): Z74.01 - BED CONFINEMENT STATUS Status: Chronic (5) GERD (gastroesophageal reflux disease) Code(s): K21.9 - GASTRO-ESOPHAGEAL REFLUX DISEASE WITHOUT ESOPHAGITIS Status: Chronic Qualifiers: Esophagitis presence: esophagitis presence not specified Qualified Code(s) : K21.9 - Gastro-esophageal reflux disease without esophagitis (6) HTN (hypertension) Code(s): I10 - ESSENTIAL (PRIMARY) HYPERTENSION Status: Chronic Qualifiers: - Plan Continue with abx. Discussed with lab, still awaiting final susceptibility panel AMS improving Disposition: Likely d/c after susceptibility on urine culture tomorrow.
[2019-11-09] MEDS: cefTRIAXone\\ROCEPHIN 1 GM in Sodium Chloride 0.9% 100 ML IVPB SCH (20:50)
[2019-11-10] MEDS: Sodium Chloride 0.9% 1,000 ML IV SCH ×2 (01:35→14:40)
[2019-11-10 08:08] LABS: #Eosinphils 0.2 thou/uL (0.0-0.7); #Lymphocytes 1.3 thou/uL (1.20-3.40); #Monocytes 0.4 thou/uL (0.11-0.59); #Neutrophils 2.7 thou/uL (1.40-6.50); %Basophils 0.5 % (0.0-1.0); %Eosinophils 4.9 % (0.0-10.0); %Lymphocytes 28.3 % (21.0-51.0); %Monocytes 8.6 % (0.0-10.0); %Neutrophils 57.8 % (42.0-75.0); Hemoglobin 13.5 g/dL (14.0-18.0); Mean Corpuscular HGB CONC 33.8 g/dL (32.0-36.0); Mean Corpuscular Hemoglobin 29.8 pg (27.0-31.0); Mean Corpuscular Volume 88.2 fL (78.0-98.0); Mean Platelet Volume 7.9 fL (7.4-10.4); Platelet Count 201 thou/uL (130-400); RBC Distribution Width 14.2 % (11.5-14.5); Red Blood Cell (RBC) Count 4.53 mill/uL (4.70-6.10); White Blood Cell (WBC) Count 4.7 thou/uL (4.8-10.8)
[2019-11-10 08:18] LABS: ALT (SGPT) 14 U/L (8-55); AST (SGOT) 13 U/L (5-34); Albumin 3.2 g/dL (3.4-4.8); Alkaline Phosphatase 48 U/L (40-110); Anion Gap 11 mmol/L (10-20); BUN (Urea Nitrogen) 6 mg/dL (8.4-25.7); Bilirubin, Total 0.4 mg/dL (0.2-1.2); Calc. Creatinine Clearance 111 mL/min (70-130); Calcium 8.2 mg/dL (7.8-10.44); Carbon Dioxide 22 mmol/L (23-31); Chloride 107 mmol/L (98-107); Estimated GFR-MDRD Greater than 90; Glucose 79 mg/dL (83-110); Potassium 3.4 mmol/L (3.5-5.1); Protein, Total 6.2 g/dL (5.8-8.1); Sodium 137 mmol/L (136-145)
[2019-11-10] MEDS: MEROPENEM 1 GM/50 ML 1 GM in Premix Bag 1 BAG IVPB SCH ×3 (08:43→23:46)
[2019-11-10] MEDS: Enoxaparin Sodium 40 MG/0.4 ML SYRINGE SC SCH (08:44)
[2019-11-10] MEDS ORDERED: Midodrine HCl 5 MG TAB PO PRN (17:57)
--- NOTE | 2019-11-10 18:01 | PDOC.HOSPP ---
- Subjective Encounter Date: 11/10/19 Encounter Time: 15:00 Subjective: no abd pain or sob responds to verbal stimuli in husky low voice staff tell me he is fully oriented but is incontinent in his briefs - Objective Vital Signs & Weight: Vital Signs (12 hours) Temp Pulse Resp BP Pulse Ox 11/10/19 14:38 93 124/83 11/10/19 08:11 98.4 F 86 16 150/97 H 98 Weight Admit Weight 174 lb 2.643 oz Weight 174 lb I&O: 11/09/19 11/10/19 11/11/19 06:59 06:59 06:59 Intake Total 3240 1700 600 Balance 3240 1700 600 Result Diagrams: 11/10/19 07:50 11/10/19 07:50 Hospitalist ROS - Medication Medications: Active Medications Generic Name Dose Route Start Last Admin Trade Name Freq PRN Reason Stop Dose Admin Enoxaparin Sodium 40 mg 11/09/19 09:00 11/10/19 08:44 Lovenox SC 40 mg 0900 ASHLEIGH Administration Sodium Chloride 1,000 mls @ 75 mls/hr 11/06/19 17:35 11/10/19 14:40 Normal Saline 0.9% IV 1,000 mls .[id number] ASHLEIGH Administration Meropenem 1 gm/ Device 50 mls @ 100 mls/hr 11/10/19 08:00 11/10/19 16:18 IVPB 50 mls 0800,[id number] ASHLEIGH Administration - Exam General Appearance: awake alert Eye: PERRL, anicteric sclera ENT: no oropharyngeal lesions, moist mucosa Neck: supple, no JVD Heart: RRR, no murmur Respiratory: no wheezes, no rales Gastrointestinal: soft, non-tender, non-distended, normal bowel sounds Extremities: no cyanosis, no edema Neurological: cranial nerve grossly intact, no focal deficits Hosp A/P (1) Urinary tract infection Status: Acute Qualifiers: Urinary tract infection type: acute cystitis Hematuria presence: without hematuria Qualified Code(s): N30.00 - Acute cystitis without hematuria (2) Weakness generalized Code(s): R53.1 - WEAKNESS Status: Acute (3) BPH (benign prostatic hyperplasia) Code(s): N40.0 - BENIGN PROSTATIC HYPERPLASIA WITHOUT LOWER URINRY TRACT SYMP Status: Chronic Qualifiers: Lower urinary tract symptom presence: symptoms present (4) Bedbound Code(s): Z74.01 - BED CONFINEMENT STATUS Status: Chronic (5) Dementia Code(s): F03.90 - UNSPECIFIED DEMENTIA WITHOUT BEHAVIORAL DISTURBANCE Status: Chronic Qualifiers: Dementia type: Parkinson's disease Dementia behavioral disturbance: without behavioral disturbance Qualified Code(s): G20 - Parkinson's disease; F02.80 - Dementia in other diseases classified elsewhere without behavioral disturbance (6) Dyslipidemia Code(s): E78.5 - HYPERLIPIDEMIA, UNSPECIFIED Status: Chronic (7) GERD (gastroesophageal reflux disease) Code(s): K21.9 - GASTRO-ESOPHAGEAL REFLUX DISEASE WITHOUT ESOPHAGITIS Status: Chronic Qualifiers: Esophagitis presence: esophagitis presence not specified Qualified Code(s) : K21.9 - Gastro-esophageal reflux disease without esophagitis (8) HTN (hypertension) Code(s): I10 - ESSENTIAL (PRIMARY) HYPERTENSION Status: Chronic Qualifiers: (9) Parkinson disease Code(s): G20 - PARKINSON'S DISEASE Status: Chronic (10) Acute metabolic encephalopathy Code(s): G93.41 - METABOLIC ENCEPHALOPATHY Status: Resolved - Plan is on meropenem based on urine cultures no fever, normal wbc, has bladder residual of 80mls, known h/o bph not sure if he is colonized with similar e.coli sensitivity pattern in last 3 cultures at least will get ID opinion to treat further or not is likely at his baseline cognition restart home meds specially prostate meds dc plan in am to snf once ID consultation and antibiotics are chosen, ?picc line /invanz hemostable
--- NOTE | 2019-11-10 18:02 | PQF ---
HAYDE DUGAN VINAYA KUMAR MD [id number] CLINICAL DOCUMENTATION IMPROVEMENT CLARIFICATION FORM: ICD-10 Updated PLEASE DO AN ADDENDUM TO THE PROGRESS NOTE WITH ANY DOCUMENTATION UPDATES OR ADDITIONS AND CARRY THROUGH TO DC SUMMARY. THANK YOU. DATE: 11/10/18 ATTN: Dr. Mcfadden Please exercise your independent, professional judgment in responding to the clarification form. Clinical indicators are provided on the bottom of this form for your review Please check appropriate box(s): Acute Encephalopathy: Etiology: [x ] Metabolic due to UTI [ ] Unspecified [x ] in the setting of underlying dementia [ ] Other (please specify) [ ] Other diagnosis [ ] Unable to determine In addition, please specify: Present on Admission (POA): [ x ] Yes [ ] No [ ] Unable to determine For continuity of documentation, please document condition throughout progress notes and discharge summary. Thank You. CLINICAL INDICATORS - SIGNS / SYMPTOMS / LABS / RESULTS AND LOCATION IN EMR Altered mental status / confusion--> 11/06 [facility]: "Acute encephalopathy; oriented to person, but not place or time" 11/08 [facility]: "AMS is better" 11/06 UA--> Ur leuko est 250; wbc 21-50, bacteria 4+ per lab 11/06 Urine cx: Escherichia coli per lab RISK FACTORS / RESULTS AND LOCATION IN EMR Hx of "Parkinson dementia" 11/06 Infectious process--> 11/06 [facility]: "UTI" TREATMENTS / RESULTS AND LOCATION IN EMR IV antibiotics--> Rocephin 1gm IV daily 11/06 to 11/10/19 changed to Meropenem 1gm IV per orders IV fluids--> NS AT 75 11/06 to date per orders ID consult 11/10 per orders (This form is maintained as a part of the permanent medical record) 2014 [employer]. All Rights Reserved Rosanne Johnson, RN, BSN, CCDS [email or web address]
[2019-11-10] MEDS: Carbidopa/Levodopa 25-100 mg Tablet PO SCH (19:50)
[2019-11-11] MEDS: Sodium Chloride 0.9% 1,000 ML IV SCH ×2 (03:55→19:22)
[2019-11-11 07:39] VITALS: BP 139/90; TEMP 98.6
[2019-11-11] MEDS: MEROPENEM 1 GM/50 ML 1 GM in Premix Bag 1 BAG IVPB SCH ×2 (08:25→15:27)
[2019-11-11] MEDS: Enoxaparin Sodium 40 MG/0.4 ML SYRINGE SC SCH (08:29)
[2019-11-11] MEDS: Carbidopa/Levodopa 25-100 mg Tablet PO SCH ×2 (08:30→15:27)
[2019-11-11] MEDS ORDERED: Dutasteride 0.5 MG CAP PO SCH (09:00)
[2019-11-11] MEDS ORDERED: Ergocalciferol 1.25 MG(50,000 UNITS) CAP PO SCH (09:00)
[2019-11-11] MEDS ORDERED: Docusate 100 MG CAP PO SCH (09:00)
[2019-11-11] MEDS ORDERED: Atorvastatin Calcium 10 MG TAB PO SCH (09:00)
[2019-11-11] MEDS ORDERED: Tamsulosin HCl 0.4 MG CAP PO SCH (09:00)
--- NOTE | 2019-11-11 12:24 | PDOC.HOSPP ---
- Subjective Encounter Date: 11/11/19 Encounter Time: 12:00 Subjective: awake, not in distress eating 50% of his meals per staff - Objective Vital Signs & Weight: Vital Signs (12 hours) Temp Pulse Resp BP Pulse Ox 11/11/19 09:00 98.6 F 80 16 139/90 97 11/11/19 08:00 97 11/11/19 07:34 98.6 F 80 16 139/90 97 Weight Admit Weight 174 lb 2.643 oz Weight 174 lb I&O: 11/10/19 11/11/19 11/12/19 06:59 06:59 06:59 Intake Total 1700 600 640 Balance 1700 600 640 Result Diagrams: 11/10/19 07:50 11/10/19 07:50 Hospitalist ROS - Medication Medications: Active Medications Generic Name Dose Route Start Last Admin Trade Name Freq PRN Reason Stop Dose Admin Atorvastatin Calcium 10 mg 11/11/19 09:00 11/11/19 08:31 Lipitor PO 10 mg DAILY ASHLEIGH Administration Carbidopa/Levodopa 1 tab 11/10/19 21:00 11/11/19 08:30 Sinemet 25-100 PO 1 tab TID ASHLEIGH Administration Docusate Sodium 200 mg 11/11/19 09:00 11/11/19 08:31 Colace PO 200 mg DAILY ASHLEIGH Administration Dutasteride 0.5 mg 11/11/19 09:00 11/11/19 08:31 Avodart PO 0.5 mg DAILY ASHLEIGH Administration Enoxaparin Sodium 40 mg 11/09/19 09:00 11/11/19 08:29 Lovenox SC 40 mg 0900 ASHLEIGH Administration Ergocalciferol 1.25 mg 11/11/19 09:00 11/11/19 08:31 Drisdol PO 1.25 mg DAILY ASHLEIGH Administration Sodium Chloride 1,000 mls @ 75 mls/hr 11/06/19 17:35 11/11/19 03:55 Normal Saline 0.9% IV 1,000 mls .[id number] ASHLEIGH Administration Meropenem 1 gm/ Device 50 mls @ 100 mls/hr 11/10/19 08:00 11/11/19 08:25 IVPB 50 mls 0800,1600,2359 ASHLEIGH Administration Pantoprazole Sodium 40 mg 11/11/19 09:00 11/11/19 08:31 Protonix PO 40 mg DAILY ASHLEIGH Administration Tamsulosin HCl 0.4 mg 11/11/19 09:00 11/11/19 08:31 Flomax PO 0.4 mg DAILY ASHLEIGH Administration - Exam General Appearance: awake alert Eye: PERRL, anicteric sclera ENT: no oropharyngeal lesions, moist mucosa Neck: supple, no JVD Heart: RRR, no murmur Respiratory: no wheezes, no rales Gastrointestinal: soft, non-tender, non-distended, normal bowel sounds Extremities: no cyanosis, no edema Neurological: cranial nerve grossly intact, no focal deficits Hosp A/P (1) Urinary tract infection Status: Acute Qualifiers: Urinary tract infection type: acute cystitis Hematuria presence: without hematuria Qualified Code(s): N30.00 - Acute cystitis without hematuria (2) Weakness generalized Code(s): R53.1 - WEAKNESS Status: Acute (3) BPH (benign prostatic hyperplasia) Code(s): N40.0 - BENIGN PROSTATIC HYPERPLASIA WITHOUT LOWER URINRY TRACT SYMP Status: Chronic Qualifiers: Lower urinary tract symptom presence: symptoms present (4) Bedbound Code(s): Z74.01 - BED CONFINEMENT STATUS Status: Chronic (5) Dementia Code(s): F03.90 - UNSPECIFIED DEMENTIA WITHOUT BEHAVIORAL DISTURBANCE Status: Chronic Qualifiers: Dementia type: Parkinson's disease Dementia behavioral disturbance: without behavioral disturbance Qualified Code(s): G20 - Parkinson's disease; F02.80 - Dementia in other diseases classified elsewhere without behavioral disturbance (6) Dyslipidemia Code(s): E78.5 - HYPERLIPIDEMIA, UNSPECIFIED Status: Chronic (7) GERD (gastroesophageal reflux disease) Code(s): K21.9 - GASTRO-ESOPHAGEAL REFLUX DISEASE WITHOUT ESOPHAGITIS Status: Chronic Qualifiers: Esophagitis presence: esophagitis presence not specified Qualified Code(s) : K21.9 - Gastro-esophageal reflux disease without esophagitis (8) HTN (hypertension) Code(s): I10 - ESSENTIAL (PRIMARY) HYPERTENSION Status: Chronic Qualifiers: (9) Parkinson disease Code(s): G20 - PARKINSON'S DISEASE Status: Chronic (10) Acute metabolic encephalopathy Code(s): G93.41 - METABOLIC ENCEPHALOPATHY Status: Resolved - Plan is on meropenem based on urine cultures no fever, normal wbc, has bladder residual of 80mls, known h/o bph not sure if he is colonized with similar e.coli sensitivity pattern in last 3 cultures at least await ID opinion to treat further or not on discharge is likely at his baseline cognition restart home meds specially prostate meds dc plan to snf once ID consultation and antibiotics are chosen, ?picc line/ invanz hemostable
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
--- NOTE | 2019-11-11 18:40 | DIS ---
DATE OF ADMISSION: 11/08/2019 DATE OF DISCHARGE: 11/11/2019 DISCHARGE DISPOSITION: [facility]. PRIMARY DISCHARGE DIAGNOSES: Acute metabolic encephalopathy, resolved. Suspicion for urinary tract infection, likely colonization. SECONDARY DISCHARGE DIAGNOSES: History of Parkinson disease, bedbound status, hypertension, gastroesophageal reflux disease. PROCEDURES DONE DURING HOSPITALIZATION: The patient had CT brain done, which did not reveal any acute intracranial abnormality. Chest x-ray done showed no evidence of acute cardiopulmonary abnormality. Urine culture grew E coli sensitive to meropenem, Macrobid, gentamicin, and amikacin. Influenza A and B antigens were negative. Had a white count of 7.6 on the day of admission, H and H of 14 and 45, platelet count 254, MCV 87. BUN and creatinine of 6 and 0.6. Albumin is 3.2. BNP 14. DISCHARGE MEDICATIONS: 1. Atorvastatin 10 mg p.o. daily. 2. Carbidopa/levodopa 25/100 mg p.o. one tab three times daily. 3. Colace 200 mg daily. 4. Avodart 0.5 mg daily. 5. Vitamin D2 50,000 units p.o. daily. 6. Nexium 40 mg p.o. daily. 7. Midodrine 5 mg p.o. q.8 hourly p.r.n. for hypotension. 8. Flomax 0.4 mg p.o. daily. 9. Trazodone 50 mg p.o. daily. ALLERGIES: NO KNOWN DRUG ALLERGIES. INPATIENT CONSULT: Dr. Melton for Infectious Disease. DISCHARGE PLAN: The patient to follow up with his primary care physician in [address] Demarco, his urologist, in 2 weeks. BRIEF COURSE DURING HOSPITALIZATION: The patient initially was sent over from [facility] for altered mental state. His initial UA was positive for UTI. He was placed on IV antibiotics and later transitioned to meropenem based on culture and sensitivity. The patient has had 3 prior urine cultures with similar sensitivity pattern. He did not have fever. He did not have any elevated white count either. In view of multi-drug resistant E coli, Infectious Disease consultation was requested. Dr. Melton evaluated the patient. Per Dr. Melton' advice, all antibiotics have been discontinued at the time of discharge. He has come back to his baseline cognitive function. The patient has been tolerating oral solid diet. He is bedbound and does not ambulate. A total of 35 minutes was spent on discharge plan. The patient is placed on all his home medications as before. He is incontinent of urine as well. He is hemodynamically stable and will be shortly discharged back to [facility]. Please see a [id number] documentation for the day of discharge on [employer]. Job ID: [id number] MTDD
== END 2019-11-11 17:47 | DRG 689 ==
LOC: ERS 14:28 → ONC 20:37 → OBSVTOIN 11-08 12:09 → UNDODISIN 11-08 13:06
PROVIDERS: ADMIT Internal Medicine; ATTEND Internal Medicine
DX: N39.0 Urinary tract infection, site not specified (principal); G93.41 Metabolic encephalopathy; Z16.24 Resistance to multiple antibiotics; Z66 Do not resuscitate; G20 Parkinson's disease; I10 Essential (primary) hypertension; K21.9 Gastro-esophageal reflux disease without esophagitis; F02.80 Dementia in other diseases classified elsewhere, unspecified severity, without behavioral disturbance, psychotic disturbance, mood disturbance, and anxiety; B96.20 Unspecified Escherichia coli [E. coli] as the cause of diseases classified elsewhere; Z74.01 Bed confinement status; Z79.899 Other long term (current) drug therapy
CPT/HCPCS: 36415; 51701; 70450; 71045; 80053; 81003; 81015; 82140; 82550; 82553; 83880; 84484; 85025; 87077; 87086; 87186; 87804; 93005; 96361; 96365; J0696; J1650; J2185; J3490

== ENCOUNTER 2020-04-21 07:48 | Inpatient (IN) | payer MEDICARE, MEDICAID, OTHER ==
[2020-04-21] MEDS ORDERED: Norepinephrine 8 MG/0.9% NS 250 ML ONE (08:02)
[2020-04-21] MEDS ORDERED: Vancomycin 1 GM/200 ML BAG ONE (08:06)
[2020-04-21] MEDS ORDERED: Acetaminophen 325 MG Suppository ONE (08:20)
[2020-04-21] MEDS ORDERED: Acetaminophen 650 MG Suppository ONE (08:20)
[2020-04-21] MEDS ORDERED: cefTRIAXone\\ROCEPHIN 2 GM VIAL ONE (08:21)
[2020-04-21 08:45] LABS: Hemoglobin 13.8 g/dL (14.0-18.0); Mean Corpuscular Hemoglobin 28.9 pg (27.0-31.0); Mean Corpuscular Volume 90.4 fL (78.0-98.0); Mean Platelet Volume 8.6 fL (7.4-10.4); Platelet Count 162 thou/uL (130-400); RBC Distribution Width 13.6 % (11.5-14.5); Red Blood Cell (RBC) Count 4.78 mill/uL (4.70-6.10); White Blood Cell (WBC) Count 13.8 thou/uL (4.8-10.8)
[2020-04-21 09:05] LABS: CKMB 1.9 ng/mL (0-6.6)
--- NOTE | 2020-04-21 09:08 | RAD ---
Exam: Chest one view HISTORY:Possible urinary tract infection Comparison: 11/06/2019 FINDINGS: Cardiac silhouette: Normal Aorta: Atherosclerosis Pulmonary vessels: Normal Costophrenic angles: Clear LUNGS: No masses or consolidation. Pneumothorax: None Osseous abnormalities: None IMPRESSION: No acute cardiopulmonary process.
[2020-04-21 09:12] LABS: Band 21 % (5-11); Hypersemented Neutrophil SLIGHT; Large Platelets SLIGHT; Lymphocytes 4 % (21-51); MDiff Complete? YES; Monocytes 3 % (0-10); Neutrophil 72 % (42-75); Platelet Morphology Comment Appears Adequate; Vacuoles SLIGHT
[2020-04-21 09:20] LABS: ALT (SGPT) 15 U/L (8-55); AST (SGOT) 18 U/L (5-34); Albumin 3.6 g/dL (3.4-4.8); Alkaline Phosphatase 129 U/L (40-110); Anion Gap 20 mmol/L (10-20); BUN (Urea Nitrogen) 42 mg/dL (8.4-25.7); Bilirubin, Total 0.7 mg/dL (0.2-1.2); Calc. Creatinine Clearance 0 mL/min (70-130); Calcium 8.9 mg/dL (7.8-10.44); Carbon Dioxide 18 mmol/L (23-31); Chloride 109 mmol/L (98-107); Estimated GFR-MDRD 19; Glucose 101 mg/dL (83-110); Potassium 4.2 mmol/L (3.5-5.1); Protein, Total 6.6 g/dL (5.8-8.1); Sodium 143 mmol/L (136-145)
[2020-04-21 10:01] LABS: Bacteria/HPF 4+ HPF (None Seen); Bilirubin Negative (Negative); Blood, Urine Negative (Negative); Clarity Turbid (Clear); Glucose, Urine (Dipstick) Normal (Negative); Leukocyte 25 Leu/uL (Negative); Nitrite Negative (Negative); Protein, Urine (Dipstick) 20 mg/dL (Neg-Trace); RBC/HPF 0-3 HPF (0-3); Squamous Epithelial None Seen HPF (0-3); Urobilinogen Normal mg/dL (Less than 2); WBC/HPF 0-3 HPF (0-3)
--- NOTE | 2020-04-21 10:44 | RAD ---
Exam: Chest one view HISTORY:Status post central line placement Comparison: 04/21/2020 at 8:21 AM FINDINGS: Lines and tubes: Interval placement of a left-sided internal jugular vascular catheter with the dista l tip terminating over the expected region of the superior vena cava Cardiac silhouette: Normal Aorta: Atherosclerosis Pulmonary vessels: Normal Costophrenic angles: Clear LUNGS: No masses or consolidation. Pneumothorax: None Osseous abnormalities: None IMPRESSION: Interval placement of a left-sided internal jugular vascular catheter. No pneumothorax.
--- NOTE | 2020-04-21 11:31 | CT ---
Exam: Head CT without contrast HISTORY: Altered mental status. COMPARISON: 09/06/2019 FINDINGS: Hemorrhage: No intraparenchymal hemorrhage or extra-axial hematoma. Brain parenchyma: Cortical adams-white matter differentiation is preserved. No mass effect or midline shift. Basilar cisterns are patent. Ventricular system: Ventricles and sulci are patent and symmetric. Calvarium: Intact. Sinuses and mastoid air cells: Adequate aeration. IMPRESSION: No acute intracranial process.
--- NOTE | 2020-04-21 11:34 | CT ---
ABDOMEN CT WITH CONTRAST PELVIC CT WITHOUT CONTRAST: HISTORY: Fever. Nonproductive cough. History of urinary tract infection. COMPARISON: 03/31/2019. FINDINGS: Abdomen CT: Lung bases:Scar/atelectasis in the lung bases is favored. Heart size: Normal heart size. No significant pericardial fluid. There are coronary artery calcificat ions. Aorta: Normal caliber aorta. Minimal atherosclerosis. Solid organs: Imaging evaluation by the lack of IV contrast. Grossly no solid organ abnormality. Lymph nodes: No gastrohepatic, retrocrural or periportal lymphadenopathy. Gallbladder: No CT evidence of cholelithiasis or cholecystitis. Mesentery: No mass, lymphadenopathy, free air or free fluid. Kidneys: Bilaterally no hydronephrosis, nephrolithiasis or perinephric fat stranding. Bilaterally no obstructive uropathy. There is nephrocalcinosis involving the mid left renal cortex, unchanged. Multiple bilateral renal cortical hypodensities are redemonstrated. Hypodensities have attenuation co efficients compatible with bilateral simple cysts. The largest cyst emanates from the right renal cortex and measures 4.3 x 4.1 cm. Alimentary canal: Limited evaluation by the lack of oral contrast. No evidence of a small bowel obstr uction. Ileocecal junction appears to have a normal appearance. Normal caliber appendix. CT PELVIS: No mass, adenopathy, free air or free fluid. Bilateral inguinal hernias containing fat are noted. Urinary bladder: Limited evaluation. There does appear to be a well-circumscribed hypodensity at the base of the bladder, incompletely evaluated. Hypodensity measures at least 3.1 x 3.2 cm. Osseous structures: No lytic or blastic lesions. IMPRESSION: 1. No evidence of nephrolithiasis or obstructive uropathy. 2. Ill-defined hypodensity in the base of the bladder as described above. Nonemergent urologic consul tation may be beneficial. 3. Bilateral renal cortical cysts. 4. No evidence of bowel obstruction. Normal caliber appendix is identified. Transcribed Date/Time: 04/21/2020 11:51 AM
[2020-04-21 11:56] LABS: Troponin I 0.095 ng/mL (< 0.028)
[2020-04-21] MEDS ORDERED: Norepinephrine 8 MG/0.9% NS 250 ML IVPB PRN (12:20)
[2020-04-21] MEDS ORDERED: Midodrine HCl 5 MG TAB PO PRN (15:07)
[2020-04-21] MEDS: metroNIDAZOLE 500 MG in Premix Bag 1 BAG IVPB SCH ×2 (15:07→21:44)
[2020-04-21] MEDS ORDERED: Heparin 1,000 UNITS/ML VIAL ONE (15:38)
[2020-04-21 15:42] VITALS: BMI 24.2
[2020-04-21 16:31] LABS: Troponin I 0.188 ng/mL (< 0.028)
[2020-04-21] MEDS: Atorvastatin Calcium 10 MG TAB PO SCH ×2 (19:49→20:13)
[2020-04-21] MEDS: Carbidopa/Levodopa 25-100 mg Tablet PO SCH ×2 (19:49→20:13)
[2020-04-21] MEDS: Clotrimazole/Betamethasone Cream 45 GM TUBE TOP SCH (19:50)
[2020-04-21] MEDS: Sodium Chloride 0.9% 1,000 ML IV SCH (20:32)
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
[2020-04-21] MEDS ORDERED: Vancomycin 1.5 GRAM/300 ML BAG 1.5 GM in Premix Bag 1 BAG IVPB SCH (21:00)
[2020-04-22 04:41] LABS: ALT (SGPT) 23 U/L (8-55); AST (SGOT) 36 U/L (5-34); Alkaline Phosphatase 64 U/L (40-110); Anion Gap 12 mmol/L (10-20); BUN (Urea Nitrogen) 36 mg/dL (8.4-25.7); Bilirubin, Total 0.4 mg/dL (0.2-1.2); Calc. Creatinine Clearance 49 mL/min (70-130); Carbon Dioxide 23 mmol/L (23-31); Chloride 114 mmol/L (98-107); Estimated GFR-MDRD 61; Glucose 80 mg/dL (83-110); Sodium 145 mmol/L (136-145)
[2020-04-22 04:44] LABS: Band 22 % (5-11); Hemoglobin 11.5 g/dL (14.0-18.0); Hypochromia SLIGHT = 6-15 cells (100X) (0-5/hpf); Lymphocytes 5 % (21-51); MDiff Complete? YES; Mean Corpuscular HGB CONC 30.8 g/dL (32.0-36.0); Mean Corpuscular Volume 90.7 fL (78.0-98.0); Mean Platelet Volume 8.8 fL (7.4-10.4); Metamyelocyte 2 % (0-0); Monocytes 5 % (0-10); Neutrophil 66 % (42-75); Platelet Count 121 thou/uL (130-400); Platelet Morphology Comment Appears Decreased; RBC Distribution Width 13.8 % (11.5-14.5); Red Blood Cell (RBC) Count 4.13 mill/uL (4.70-6.10); White Blood Cell (WBC) Count 31.4 thou/uL (4.8-10.8)
[2020-04-22 04:46] LABS: Vancomycin, Random 6.1 ug/mL (See Comment)
[2020-04-22] MEDS: metroNIDAZOLE 500 MG in Premix Bag 1 BAG IVPB SCH (06:05)
[2020-04-22] MEDS: Sodium Chloride 0.9% 1,000 ML IV SCH ×3 (06:22→21:06)
--- NOTE | 2020-04-22 08:11 | PDOC.HOSPP ---
- Subjective Encounter Date: 04/22/20 Subjective: The patient is more alert today and he answers questions appropriately. Denies any chest pain. - Objective Vital Signs & Weight: Vital Signs (12 hours) Temp 04/22/20 00:00 98.4 F Weight Admit Weight 159 lb 2.78 oz Weight 160 lb Most Recent Monitor Data Heart Rate from ECG 98 NIBP 118/88 NIBP BP-Mean 98 Respiration from ECG 14 SpO2 100 I&O: 04/21/20 04/22/20 04/23/20 06:59 06:59 06:59 Intake Total 2077 Output Total 1410 Balance 667 Result Diagrams: 04/22/20 03:30 04/22/20 03:30 Hospitalist ROS - Medication Medications: Active Medications Generic Name Dose Route Start Last Admin Trade Name Freq PRN Reason Stop Dose Admin Atorvastatin Calcium 10 mg 04/21/20 21:00 04/21/20 20:13 Lipitor PO Not Given HS ASHLEIGH Betamethasone/Clotrimazole 0 gm 04/21/20 21:00 04/21/20 19:50 Lotrisone Cream TOP 1 applic BID ASHLEIGH Administration Carbidopa/Levodopa 1 tab 04/21/20 21:00 04/21/20 20:13 Sinemet 25-100 PO Not Given TID ASHLEIGH Sodium Chloride 1,000 mls @ 100 mls/hr 04/21/20 20:15 04/22/20 06:22 Normal Saline 0.9% IV 1,000 mls .Q10H ASHLEIGH Administration Sodium Chloride 10 ml 04/21/20 21:00 04/21/20 19:50 Flush - Normal Saline IVF 10 ml Q12HR ASHLEIGH Administration - Exam General Appearance: awake alert ENT: normocephalic atraumatic Neck: supple, no JVD Heart: RRR Respiratory: CTAB, no wheezes, no rales, no ronchi, normal chest expansion Gastrointestinal: soft, non-tender, non-distended, normal bowel sounds Hosp A/P (1) Septic shock Code(s): A41.9 - SEPSIS, UNSPECIFIED ORGANISM; R65.21 - SEVERE SEPSIS WITH SEPTIC SHOCK Status: Acute (2) Gram-negative bacteremia Code(s): R78.81 - BACTEREMIA Status: Acute (3) History of neurosyphilis Code(s): Z86.61 - PERSONAL HISTORY OF INFECTIONS OF THE CENTRAL NERVOUS SYSTEM Status: Acute (4) Parkinson disease Code(s): G20 - PARKINSON'S DISEASE Status: Chronic (5) Acute metabolic encephalopathy Code(s): G93.41 - METABOLIC ENCEPHALOPATHY Status: Resolved - Plan Septic shock resolved but the patient remains septic. Leukocytosis worsened to 31 today. Blood culture showing growth of Escherichia coli. I will expand antibiotic coverage to vancomycin and meropenem to cover for suspected ESBL. ID consulted. Urine output is adequate on the Sandoval catheter. I will consult urology for urinary retention. Patient's mental status has improved significantly since yesterday. The patient's creatinine level is improving with IV hydration. Elevated troponins are likely due to demand ischemia from septic shock. The patient denies any chest pain. The patient is stable enough to transfer to [facility].
[2020-04-22] MEDS: Carbidopa/Levodopa 25-100 mg Tablet PO SCH ×3 (08:18→21:06)
[2020-04-22] MEDS: Finasteride 5 MG TAB PO SCH (08:18)
[2020-04-22] MEDS: Tamsulosin HCl 0.4 MG CAP PO SCH (08:19)
[2020-04-22] MEDS: Vancomycin 1.5 GRAM/300 ML BAG 1.5 GM in Premix Bag 1 BAG IVPB SCH (08:20)
[2020-04-22] MEDS: Clotrimazole/Betamethasone Cream 45 GM TUBE TOP SCH ×2 (08:21→21:07)
[2020-04-22] MEDS ORDERED: cefTRIAXone\\ROCEPHIN 2 GM in Sodium Chloride 0.9% 100 ML IVPB SCH (09:00)
[2020-04-22] MEDS ORDERED: Prevnar 13-Val Conj/PF 0.5 ML SYRINGE IM ONE (09:00)
[2020-04-22 12:23] LABS: SARS-CoV-2 MS2 Positive; SARS-CoV-2 N Gene Negative; SARS-CoV-2 S Gene Negative; SARS-CoV-2 orf1ab Negative
[2020-04-22] MEDS: MEROPENEM 1 GM/50 ML 1 GM in Premix Bag 1 BAG IVPB SCH ×2 (14:11→21:06)
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
[2020-04-22] MEDS: Atorvastatin Calcium 10 MG TAB PO SCH (21:06)
[2020-04-23 04:16] LABS: Band 19 % (5-11); Eosinophils 1 % (0-10); Hemoglobin 11.9 g/dL (14.0-18.0); Lymphocytes 4 % (21-51); MDiff Complete? YES; Mean Corpuscular HGB CONC 32.1 g/dL (32.0-36.0); Mean Corpuscular Hemoglobin 29.2 pg (27.0-31.0); Mean Platelet Volume 9.1 fL (7.4-10.4); Metamyelocyte 1 % (0-0); Monocytes 1 % (0-10); Neutrophil 74 % (42-75); Platelet Count 124 thou/uL (130-400); Platelet Morphology Comment Appears Adequate; RBC Distribution Width 13.8 % (11.5-14.5); Red Blood Cell (RBC) Count 4.07 mill/uL (4.70-6.10); White Blood Cell (WBC) Count 26.1 thou/uL (4.8-10.8)
[2020-04-23 04:19] LABS: ALT (SGPT) 15 U/L (8-55); AST (SGOT) 25 U/L (5-34); Albumin 2.9 g/dL (3.4-4.8); Alkaline Phosphatase 76 U/L (40-110); BUN (Urea Nitrogen) 26 mg/dL (8.4-25.7); Bilirubin, Total 0.4 mg/dL (0.2-1.2); Calc. Creatinine Clearance 83 mL/min (70-130); Calcium 7.9 mg/dL (7.8-10.44); Carbon Dioxide 19 mmol/L (23-31); Estimated GFR-MDRD Greater than 90; Glucose 71 mg/dL (83-110); Protein, Total 5.9 g/dL (5.8-8.1)
[2020-04-23 04:27] LABS: Anion Gap 13 mmol/L (10-20); Chloride 116 mmol/L (98-107); Potassium 3.6 mmol/L (3.5-5.1); Sodium 145 mmol/L (136-145)
[2020-04-23] MEDS: MEROPENEM 1 GM/50 ML 1 GM in Premix Bag 1 BAG IVPB SCH ×3 (06:03→20:28)
[2020-04-23] MEDS: Vancomycin 1.5 GRAM/300 ML BAG 1.5 GM in Premix Bag 1 BAG IVPB SCH (08:37)
[2020-04-23] MEDS: Finasteride 5 MG TAB PO SCH (08:38)
[2020-04-23] MEDS: Carbidopa/Levodopa 25-100 mg Tablet PO SCH ×3 (08:38→20:27)
[2020-04-23] MEDS: Clotrimazole/Betamethasone Cream 45 GM TUBE TOP SCH ×2 (08:38→20:28)
[2020-04-23] MEDS: Tamsulosin HCl 0.4 MG CAP PO SCH (08:38)
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
[2020-04-23] MEDS: Sodium Chloride 0.9% 1,000 ML IV SCH ×2 (09:49→20:40)
--- NOTE | 2020-04-23 10:17 | PRG ---
DATE OF SERVICE: 04/23/2020 SUBJECTIVE: Mr. Falk is in no distress. OBJECTIVE: VITAL SIGNS: He is afebrile. Heart rate 98, respiratory rate is 17, oximetry is 100% on room air, blood pressure 140/90. LUNGS: Unchanged. HEART: Unchanged. ABDOMEN: Unchanged. Sensitivities are back on E coli, fairly resistant drug. Only sensitive to amikacin, gentamicin, meropenem, and Zosyn. He has a chronic indwelling Sandoval and would wonder if he would be a candidate for suprapubic catheter. He is stable from a pulmonary standpoint. We will sign off. Job ID: [id number]
--- NOTE | 2020-04-23 12:44 | PRG ---
DATE OF SERVICE: 04/23/2020 SUBJECTIVE: The patient's clinical history, review of chart, the patient seen by Dr. Barber yesterday, as he was admitted over the weekend due to E coli urosepsis. ER records reviewed demonstrating 15-[place] Sandoval catheter placed by the ER staff without significant issues of 900 mL of postvoid residual. Of note, the patient is a poor historian, baseline flat affect, no prior history of being combative. He is tolerating indwelling Sandoval catheter without significant issues and states that he is not having any pain. His previous PVR has been minimal in my office about 50 mL and has been on dual medical therapy. He is known to have chronic bacteriuria, as he voids in a diaper. He was referred to Cardiology for clearance to proceed with TURP versus UroLift as an option. He has previously undergone cystoscopy back in July 2019 demonstrating no bladder lesion. ER records as above demonstrating 900 mL of PVR as he presents with leukocytosis and has been on pressors currently off. He is currently on telemetry unit, resting comfortably. OBJECTIVE: VITAL SIGNS: Stable. Temperature 98.6. He has been afebrile since he presented to the emergency room, 97, 18, 100, 134/82. I's and O's 2070 in, 1700 out. He is positive 375 mL. Positive BM. ABDOMEN: Soft, nontender, nondistended. HEART: Regular rate. LUNGS: Clear. Decreased inspiratory effort. EXTREMITIES: No cyanosis, clubbing, or edema, however, decreased mobility, contracture of the upper extremities are noted. PERTINENT LABORATORY DATA: White count 26,000 decreased from 31, hemoglobin 11, platelet 124, 19 bands decreased from 22. Renal function back to his baseline as he presented with acute kidney injury of creatinine of 3.74, currently it is 0.83. UA on admission on April 21 demonstrates 4+ bacteria. COVID-19 not detected on April 21. Microbiology demonstrates E coli. Urine culture, multi-drug resistant, resistant to quinolones, tobramycin, ampicillin. Currently, he is on meropenem with adequate sensitivity. Blood culture of note demonstrates different sensitivity than urine culture, multi-drug resistant, sensitive to gentamicin, meropenem, Zosyn. CT of the abdomen and pelvis, which I reviewed myself demonstrating no evidence of hydronephrosis, ill-defined hypodensity in the bladder may be consistent with debris as nursing staff states that there was significant debris with initial drainage. Bedside procedure, I did irrigate his Sandoval catheter at bedside with no hematuria component, no subsequent debris appreciated. IMPRESSION AND PLAN: Mr. Falk is a 74-year-old male, previously followed by Dr. Knight with history of Parkinson's, benign prostatic hypertrophy, recurrent bacteria. Previous cystoscopy demonstrated no mass of concern . patient was in transition of being worked up for surgical intervention for BPH, i.e., TURP versus UroLift. We had scheduled the patient for urodynamics which has been deferred due to COVID-19 pandemic. He is currently admitted with acute urinary retention of 900 mL of PVR, E coli urosepsis. Continue dual medical therapy, appropriately treated with meropenem at this time, his septic parameters have improved; however, he will require intravenous antibiotic therapy due to presenting E coli urosepsis. I anticipate that he will require a PICC line, Infectious Disease consult would be prudent, order in chart by Primary Service. Continue indwelling Sandoval catheter for now, as he presented with 900 mL of PVR and we will need bladder rest. Echocardiogram pending. will follow. Job ID: [id number] [facility]
--- NOTE | 2020-04-23 15:42 | PDOC.HOSPP ---
- Subjective Encounter Date: 04/23/20 Subjective: 74-year-old male with history of Parkinson's disease, dementia, and BPH who was admitted to the hospital for acute urinary retention and septic shock due to E. coli UTI and bacteremia. The patient is having off and on episodes of confusion throughout the day. On his best he is able to communicate and follow commands. At other times he stares blankly at the ceiling and does not communicate. This could be off/on phenomena related to his underlying Parkinson's disease. - Objective Vital Signs & Weight: Vital Signs (12 hours) Temp Pulse Resp BP Pulse Ox 04/23/20 15:16 98.3 F 97 16 113/70 100 04/23/20 11:52 97 18 134/82 100 04/23/20 07:05 98.0 F 98 17 140/90 100 Weight Admit Weight 159 lb 2.78 oz Weight 162 lb 4.8 oz Most Recent Monitor Data Heart Rate from ECG 103 NIBP 118/85 NIBP BP-Mean 96 Respiration from ECG 15 SpO2 100 I&O: 04/22/20 04/23/20 04/24/20 06:59 06:59 06:59 Intake Total 2077 2075 Output Total 1410 1700 Balance 667 375 Result Diagrams: 04/23/20 03:43 04/23/20 03:43 Hospitalist ROS - Medication Medications: Active Medications Generic Name Dose Route Start Last Admin Trade Name Freq PRN Reason Stop Dose Admin Atorvastatin Calcium 10 mg 04/21/20 21:00 04/22/20 21:06 Lipitor PO 10 mg HS ASHLEIGH Administration Betamethasone/Clotrimazole 0 gm 04/21/20 21:00 04/23/20 08:38 Lotrisone Cream TOP 1 applic BID ASHLEIGH Administration Carbidopa/Levodopa 1 tab 04/21/20 21:00 04/23/20 14:46 Sinemet 25-100 PO 1 tab TID ASHLEIGH Administration Finasteride 5 mg 04/22/20 09:00 04/23/20 08:38 Proscar PO 5 mg DAILY ASHLEIGH Administration Sodium Chloride 1,000 mls @ 100 mls/hr 04/21/20 20:15 04/23/20 09:49 Normal Saline 0.9% IV 1,000 mls .Q10H ASHLEIGH Administration Meropenem 1 gm/ Device 50 mls @ 100 mls/hr 04/22/20 14:00 04/23/20 14:46 IVPB 50 mls Q8HR ASHLEIGH Administration Sodium Chloride 10 ml 04/21/20 21:00 04/23/20 08:38 Flush - Normal Saline IVF 10 ml Q12HR ASHLEIGH Administration Tamsulosin HCl 0.4 mg 04/22/20 09:00 04/23/20 08:38 Flomax PO 0.4 mg DAILY ASHLEIGH Administration - Exam General Appearance: NAD, awake alert ENT: normocephalic atraumatic Neck: supple Heart: RRR, no murmur, no gallops, no rubs, normal peripheral pulses Respiratory: CTAB, no wheezes, no rales, no ronchi, normal chest expansion Gastrointestinal: soft, non-tender, non-distended, normal bowel sounds Neurological: cranial nerve grossly intact Neurological - other findings: Follows commands. Hosp A/P (1) Septic shock Code(s): A41.9 - SEPSIS, UNSPECIFIED ORGANISM; R65.21 - SEVERE SEPSIS WITH SEPTIC SHOCK Status: Acute (2) Gram-negative bacteremia Code(s): R78.81 - BACTEREMIA Status: Acute (3) History of neurosyphilis Code(s): Z86.61 - PERSONAL HISTORY OF INFECTIONS OF THE CENTRAL NERVOUS SYSTEM Status: Acute (4) Parkinson disease Code(s): G20 - PARKINSON'S DISEASE Status: Chronic (5) Acute metabolic encephalopathy Code(s): G93.41 - METABOLIC ENCEPHALOPATHY Status: Resolved - Plan Septic shock resolved but criteria of sepsis are still present. Leukocytosis is improving. Urine and blood culture are showing growth of [id number] E. coli. The patient is on meropenem. Discontinue vancomycin. ID were consulted. The patient with history of BPH. 900 cc of urine were drained in the ED. Urology stated that the patient was planned for transurethral resection of the prostate which was delayed due to the COVID-19 pandemic. MEI resolved with resolution of septic shock and with IV hydration. Elevated troponins are likely due to demand ischemia from septic shock. The patient denies any chest pain.
[2020-04-23] MEDS: Atorvastatin Calcium 10 MG TAB PO SCH (20:27)
[2020-04-24 04:21] LABS: Band 7 % (5-11); Hypochromia SLIGHT = 6-15 cells (100X) (0-5/hpf); Lymphocytes 9 % (21-51); MDiff Complete? YES; Mean Corpuscular HGB CONC 30.9 g/dL (32.0-36.0); Mean Corpuscular Hemoglobin 27.9 pg (27.0-31.0); Mean Corpuscular Volume 90.3 fL (78.0-98.0); Mean Platelet Volume 8.9 fL (7.4-10.4); Monocytes 1 % (0-10); Neutrophil 83 % (42-75); Platelet Count 121 thou/uL (130-400); Platelet Morphology Comment Appears Adequate; RBC Distribution Width 13.7 % (11.5-14.5); Red Blood Cell (RBC) Count 4.29 mill/uL (4.70-6.10); White Blood Cell (WBC) Count 10.8 thou/uL (4.8-10.8)
[2020-04-24 04:36] LABS: ALT (SGPT) Less than 7 U/L (8-55); AST (SGOT) 15 U/L (5-34); Albumin 2.8 g/dL (3.4-4.8); Alkaline Phosphatase 60 U/L (40-110); Anion Gap 10 mmol/L (10-20); BUN (Urea Nitrogen) 16 mg/dL (8.4-25.7); Bilirubin, Total 0.4 mg/dL (0.2-1.2); Calc. Creatinine Clearance 95 mL/min (70-130); Calcium 7.9 mg/dL (7.8-10.44); Carbon Dioxide 21 mmol/L (23-31); Chloride 116 mmol/L (98-107); Estimated GFR-MDRD Greater than 90; Globulin 2.8 g/dL (2.4-3.5); Glucose 84 mg/dL (83-110); Potassium 3.3 mmol/L (3.5-5.1); Protein, Total 5.6 g/dL (5.8-8.1); Sodium 144 mmol/L (136-145)
[2020-04-24] MEDS: MEROPENEM 1 GM/50 ML 1 GM in Premix Bag 1 BAG IVPB SCH ×3 (05:16→21:03)
[2020-04-24] MEDS: Sodium Chloride 0.9% 1,000 ML IV SCH ×2 (07:09→15:16)
--- NOTE | 2020-04-24 07:53 | PRG ---
DATE OF SERVICE: 04/24/2020 SUBJECTIVE: The patient is resting, easily arousable, baseline flat affect, appears to be in no acute distress. OBJECTIVE: VITAL SIGNS: Stable. He is afebrile, 97, 90, 16, 98, 158/86. T- max of 99. I's and O's; 2440 in, 1570 out. Positive 865 mL. GENERAL: The patient is in no acute distress. ABDOMEN: Soft, nontender, and nondistended. GENITOURINARY: Sandoval catheter draining clear yellow urine. EXTREMITIES: No cyanosis, clubbing, or edema. PERTINENT LABORATORY DATA: White count is decreased from 31, 26, this morning, 10.8, hemoglobin 12, platelet 121, resolution of bandemia. Renal function profile, creatinine is 0.75, acute kidney injury resolved. Admitting creatinine 3.74. Urine culture, blood culture demonstrating E coli, multi-drug resistant. Of note, blood culture and urine culture has different sensitivity. Currently, on IV meropenem. Echocardiogram: EF of 50% to 55%. Mild mitral, tricuspid, and pulmonic regurgitation, otherwise unremarkable. IMPRESSION AND PLAN: 1. Mr. Falk is a 74-year-old male with history of recurrent bacteria, history of benign prostatic hyperplasia. 2. History of neurosyphilis. 3. Parkinson's Escherichia coli urosepsis. 4. Acute kidney injury, resolving. 5. Septic parameters, improving or resolved. 6. Presentation with PVR of 900 mL on dual medical therapy. Recommend continuing indwelling Sandoval catheter. Infectious Disease consult, PICC line pending. He will require minimum 2 to 3 weeks of IV antibiotic due to presenting E coli urosepsis. Continue indwelling Sandoval catheter for now. The patient can be discharged back to his facility in the next few days when he is medically cleared with Infectious Disease input. Outpatient workup of cysto, urodynamics will be performed at a later date, as his sepsis needs to be resolved. Continue BPH medications. Job ID: [id number] [facility]
[2020-04-24] MEDS: Carbidopa/Levodopa 25-100 mg Tablet PO SCH ×3 (09:44→20:51)
[2020-04-24] MEDS: Finasteride 5 MG TAB PO SCH (09:44)
[2020-04-24] MEDS: Tamsulosin HCl 0.4 MG CAP PO SCH (09:44)
[2020-04-24] MEDS: Clotrimazole/Betamethasone Cream 45 GM TUBE TOP SCH ×2 (09:45→20:58)
--- NOTE | 2020-04-24 19:42 | PDOC.HOSPP ---
- Subjective Encounter Date: 04/24/20 Subjective: No new events - Objective Vital Signs & Weight: Vital Signs (12 hours) Temp Pulse Resp BP Pulse Ox 04/24/20 15:11 98.7 F 91 18 165/98 H 100 04/24/20 11:22 98.2 F 84 18 161/95 H 100 Weight Admit Weight 159 lb 2.78 oz Weight 167 lb 1.6 oz Most Recent Monitor Data Heart Rate from ECG 103 NIBP 118/85 NIBP BP-Mean 96 Respiration from ECG 15 SpO2 100 I&O: 04/23/20 04/24/20 04/25/20 06:59 06:59 06:59 Intake Total 2075 2440 1320 Output Total 1700 1575 1475 Balance 375 865 -155 Result Diagrams: 04/24/20 03:58 04/24/20 03:58 Hospitalist ROS - Medication Medications: Active Medications Generic Name Dose Route Start Last Admin Trade Name Freq PRN Reason Stop Dose Admin Atorvastatin Calcium 10 mg 04/21/20 21:00 04/23/20 20:27 Lipitor PO 10 mg HS ASHLEIGH Administration Betamethasone/Clotrimazole 0 gm 04/21/20 21:00 04/24/20 09:45 Lotrisone Cream TOP 1 applic BID ASHLEIGH Administration Carbidopa/Levodopa 1 tab 04/21/20 21:00 04/24/20 15:08 Sinemet 25-100 PO 1 tab TID ASHLEIGH Administration Finasteride 5 mg 04/22/20 09:00 04/24/20 09:44 Proscar PO 5 mg DAILY ASHLEIGH Administration Sodium Chloride 1,000 mls @ 100 mls/hr 04/21/20 20:15 04/24/20 15:16 Normal Saline 0.9% IV 1,000 mls .Q10H ASHLIEGH Administration Meropenem 1 gm/ Device 50 mls @ 100 mls/hr 04/22/20 14:00 04/24/20 15:07 IVPB 50 mls Q8HR ASHLEIGH Administration Sodium Chloride 10 ml 04/21/20 21:00 04/24/20 09:45 Flush - Normal Saline IVF 10 ml Q12HR ASHLEIGH Administration Tamsulosin HCl 0.4 mg 04/22/20 09:00 04/24/20 09:44 Flomax PO 0.4 mg DAILY ASHLEIGH Administration - Exam General Appearance: NAD, awake alert ENT: normocephalic atraumatic Neck: supple Heart: RRR Respiratory: CTAB, no wheezes, no rales, no ronchi, normal chest expansion Gastrointestinal: soft, non-tender, non-distended, normal bowel sounds Hosp A/P (1) Septic shock Code(s): A41.9 - SEPSIS, UNSPECIFIED ORGANISM; R65.21 - SEVERE SEPSIS WITH SEPTIC SHOCK Status: Acute (2) Gram-negative bacteremia Code(s): R78.81 - BACTEREMIA Status: Acute (3) History of neurosyphilis Code(s): Z86.61 - PERSONAL HISTORY OF INFECTIONS OF THE CENTRAL NERVOUS SYSTEM Status: Acute (4) Parkinson disease Code(s): G20 - PARKINSON'S DISEASE Status: Chronic (5) Acute metabolic encephalopathy Code(s): G93.41 - METABOLIC ENCEPHALOPATHY Status: Resolved - Plan Septic shock and sepsis resolved. Urine and blood culture are showing growth of [id number] E. coli. The patient is on meropenem. Discontinue vancomycin. We will insert a PICC line tomorrow and plan to discharge the patient on meropenem to complete 2 weeks of antibiotics. The patient with history of BPH. 900 cc of urine were drained in the ED. Urology stated that the patient was planned for transurethral resection of the prostate which was delayed due to the COVID-19 pandemic. MEI resolved with resolution of septic shock and with IV hydration. Elevated troponins are likely due to demand ischemia from septic shock. The patient denies any chest pain.
[2020-04-24] MEDS: Atorvastatin Calcium 10 MG TAB PO SCH (20:51)
[2020-04-25 04:34] LABS: INR-International Normal Ratio 1.2; Prothrombin Time 14.8 sec (12.0-14.7)
[2020-04-25 04:50] LABS: ALT (SGPT) Less than 7 U/L (8-55); AST (SGOT) 12 U/L (5-34); Albumin 2.7 g/dL (3.4-4.8); Alkaline Phosphatase 56 U/L (40-110); Anion Gap 10 mmol/L (10-20); BUN (Urea Nitrogen) 9 mg/dL (8.4-25.7); Bilirubin, Total 0.4 mg/dL (0.2-1.2); Calc. Creatinine Clearance 105 mL/min (70-130); Calcium 7.8 mg/dL (7.8-10.44); Carbon Dioxide 24 mmol/L (23-31); Chloride 111 mmol/L (98-107); Estimated GFR-MDRD Greater than 90; Globulin 2.9 g/dL (2.4-3.5); Glucose 85 mg/dL (83-110); Potassium 3.3 mmol/L (3.5-5.1); Protein, Total 5.6 g/dL (5.8-8.1); Sodium 142 mmol/L (136-145)
[2020-04-25 04:51] LABS: Band 21 % (5-11); Hemoglobin 13.1 g/dL (14.0-18.0); Lymphocytes 13 % (21-51); MDiff Complete? YES; Mean Corpuscular HGB CONC 32.6 g/dL (32.0-36.0); Mean Corpuscular Hemoglobin 29.3 pg (27.0-31.0); Mean Corpuscular Volume 90.1 fL (78.0-98.0); Mean Platelet Volume 9.1 fL (7.4-10.4); Metamyelocyte 1 % (0-0); Monocytes 4 % (0-10); Neutrophil 61 % (42-75); Platelet Count 127 thou/uL (130-400); Platelet Morphology Comment Appears Adequate; RBC Distribution Width 13.7 % (11.5-14.5); Red Blood Cell (RBC) Count 4.48 mill/uL (4.70-6.10); White Blood Cell (WBC) Count 10.2 thou/uL (4.8-10.8)
[2020-04-25] MEDS: MEROPENEM 1 GM/50 ML 1 GM in Premix Bag 1 BAG IVPB SCH ×3 (05:24→21:37)
[2020-04-25] MEDS: Sodium Chloride 0.9% 1,000 ML IV SCH ×2 (05:25→13:29)
--- NOTE | 2020-04-25 07:39 | PRG ---
DATE OF SERVICE: 04/25/2020 SUBJECTIVE: The patient is resting, baseline flat affect, minimally verbal. OBJECTIVE: VITAL SIGNS: T-max 100.6, T-current 98, heart rate 88, respiratory rate 18, oxygen saturation 97%, blood pressure 144/75. Is and Os 2520 in, 2325 out. He is positive 850 mL. ABDOMEN: Soft, nontender, nondistended. No suprapubic tenderness. EXTREMITIES: No cyanosis, clubbing, or edema. GENITOURINARY: Sandoval catheter draining clear yellow urine. No evidence of scar , erythema, or orchitis changes. PERTINENT LABORATORY DATA: White count significantly decreased from 31, 26, to 10.2, hemoglobin 13, platelet 127, 61 segs, 21 bands. Renal function, acute kidney injury resolved, creatinine 0.68. Admitting creatinine is 3.74. Blood culture and urine culture demonstrating Escherichia coli, multi resistant , in which both blood culture and urine culture demonstrates E. coli, sensitive to meropenem. Await PICC line. IMPRESSION AND PLAN: Mr. Falk is a 74-year-old male with history of neurosyphilis, Parkinson's, benign prostatic hypertrophy, recurrent bacteria, acute kidney injury, admitted for Escherichia coli urosepsis, septic parameters, improving. He had a recurrence of low-grade fever last night, currently afebrile. Vital signs are stable. White count stable. It would be prudent to obtain a repeat urine culture, blood culture of cure, plan IV PICC line and disposition to his facility. I anticipate the patient will be ready for discharge in the next 24 hours, If he remains afebrile for 24 hours, he will be discharged to his facility with indwelling Sandoval catheter. We will proceed with workup for BPH intervention as an outpatient. He has close followup with me next Thursday. I will follow his repeat cultures as an outpatient. Job ID: [id number] [facility]
[2020-04-25] MEDS ORDERED: Potassium Chloride 20 MEQ TAB PO SCH (08:30)
[2020-04-25] MEDS: Carbidopa/Levodopa 25-100 mg Tablet PO SCH ×3 (09:00→21:38)
[2020-04-25] MEDS: Finasteride 5 MG TAB PO SCH (09:00)
[2020-04-25] MEDS: Tamsulosin HCl 0.4 MG CAP PO SCH (09:00)
[2020-04-25] MEDS: Clotrimazole/Betamethasone Cream 45 GM TUBE TOP SCH ×2 (09:01→21:38)
--- NOTE | 2020-04-25 11:10 | SPC ---
Exam: Left upper extremity PICC line with ultrasound guidance HISTORY: Urinary tract infection. COMPARISON: None. FINDINGS: Successful left upper extremity PICC line placement with ultrasound guidance. Single-lumen 5 Maltese catheter terminates in the cavoatrial junction. 41 cm trim length. TECHNIQUE: Consent obtained to perform a left upper extremity PICC line with ultrasound guidance. Lef t arm was prepped and draped in a sterile fashion. 1% lidocaine, buffered with sodium bicarbonate was used for local anesthesia. Under ultrasound guidance, micropuncture needle was used to cannulate the basilic vein. A 0.018 guidewire was advanced through the needle to the level of the cavoatrial junction. Under fluoroscopy, the catheter was advanced over the wire. Wire was removed. Catheter flus hes and aspirates without difficulty. No immediate or postprocedure complications. Exposure: 0.6 minutes, 2365 milligray/cm2. IMPRESSION: Successful left upper extremity PICC line placement with ultrasound guidance. Transcribed Date/Time: 04/25/2020 11:43 AM
--- NOTE | 2020-04-25 20:32 | PDOC.HOSPP ---
- Subjective Encounter Date: 04/25/20 - Objective Vital Signs & Weight: Vital Signs (12 hours) Temp Pulse Resp BP Pulse Ox 04/25/20 19:17 98.2 F 102 H 16 130/78 96 04/25/20 15:48 99.2 F 104 H 17 135/80 100 04/25/20 11:55 97.4 F L 98 16 160/72 H 97 Weight Admit Weight 159 lb 2.78 oz Weight 164 lb 8 oz Most Recent Monitor Data Heart Rate from ECG 103 NIBP 118/85 NIBP BP-Mean 96 Respiration from ECG 15 SpO2 100 I&O: 04/24/20 04/25/20 04/26/20 06:59 06:59 06:59 Intake Total 2440 2520 1120 Output Total 1575 2325 900 Balance 865 195 220 Result Diagrams: 04/25/20 04:14 04/25/20 04:14 Hospitalist ROS - Medication Medications: Active Medications Generic Name Dose Route Start Last Admin Trade Name Freq PRN Reason Stop Dose Admin Atorvastatin Calcium 10 mg 04/21/20 21:00 04/24/20 20:51 Lipitor PO 10 mg HS ASHLEIGH Administration Betamethasone/Clotrimazole 0 gm 04/21/20 21:00 04/25/20 09:01 Lotrisone Cream TOP 1 applic BID ASHLEIGH Administration Carbidopa/Levodopa 1 tab 04/21/20 21:00 04/25/20 15:55 Sinemet 25-100 PO 1 tab TID ASHLEIGH Administration Finasteride 5 mg 04/22/20 09:00 04/25/20 09:00 Proscar PO 5 mg DAILY ASHLEIGH Administration Sodium Chloride 1,000 mls @ 100 mls/hr 04/21/20 20:15 04/25/20 13:29 Normal Saline 0.9% IV 1,000 mls .Q10H ASHLEIGH Administration Meropenem 1 gm/ Device 50 mls @ 100 mls/hr 04/22/20 14:00 04/25/20 13:29 IVPB 50 mls Q8HR ASHLEIGH Administration Sodium Chloride 10 ml 04/21/20 21:00 04/25/20 09:01 Flush - Normal Saline IVF 10 ml Q12HR ASHLEIGH Administration Tamsulosin HCl 0.4 mg 04/22/20 09:00 04/25/20 09:00 Flomax PO 0.4 mg DAILY ASHLEIGH Administration - Exam General Appearance: awake alert ENT: normocephalic atraumatic Neck: supple Heart: RRR Respiratory: normal chest expansion, no tachypnea Gastrointestinal: soft Extremities: no cyanosis Hosp A/P (1) Septic shock Code(s): A41.9 - SEPSIS, UNSPECIFIED ORGANISM; R65.21 - SEVERE SEPSIS WITH SEPTIC SHOCK Status: Acute (2) Gram-negative bacteremia Code(s): R78.81 - BACTEREMIA Status: Acute (3) History of neurosyphilis Code(s): Z86.61 - PERSONAL HISTORY OF INFECTIONS OF THE CENTRAL NERVOUS SYSTEM Status: Acute (4) Parkinson disease Code(s): G20 - PARKINSON'S DISEASE Status: Chronic (5) Acute metabolic encephalopathy Code(s): G93.41 - METABOLIC ENCEPHALOPATHY Status: Resolved - Plan Septic shock and sepsis resolved. Urine and blood culture are showing growth of [id number] E. coli. The patient is on meropenem. Discontinue vancomycin. We will insert a PICC line tomorrow and plan to discharge the patient on meropenem to complete 2 weeks of antibiotics. The patient with history of BPH. 900 cc of urine were drained in the ED. Urology stated that the patient was planned for transurethral resection of the prostate which was delayed due to the COVID-19 pandemic. MEI resolved with resolution of septic shock and with IV hydration. Elevated troponins are likely due to demand ischemia from septic shock. The patient denies any chest pain. 04/25: Status post PICC line placement. No signs of sepsis. Plan to discharge back to the facility tomorrow to complete 2 weeks of IV meropenem. He will be discharged with the Sandoval catheter and follow with urology outpatient.
[2020-04-25] MEDS: Atorvastatin Calcium 10 MG TAB PO SCH (21:38)
[2020-04-26] MEDS: Sodium Chloride 0.9% 1,000 ML IV SCH ×2 (02:16→14:33)
[2020-04-26 04:58] LABS: Band 4 % (5-11); Eosinophils 1 % (0-10); Hemoglobin 12.4 g/dL (14.0-18.0); Hypochromia SLIGHT = 6-15 cells (100X) (0-5/hpf); Lymphocytes 8 % (21-51); MDiff Complete? YES; Mean Corpuscular HGB CONC 31.8 g/dL (32.0-36.0); Mean Corpuscular Hemoglobin 28.5 pg (27.0-31.0); Mean Corpuscular Volume 89.3 fL (78.0-98.0); Mean Platelet Volume 9.4 fL (7.4-10.4); Metamyelocyte 2 % (0-0); Monocytes 15 % (0-10); Neutrophil 70 % (42-75); Platelet Count 144 thou/uL (130-400); Platelet Morphology Comment Appears Adequate; RBC Distribution Width 13.6 % (11.5-14.5); Red Blood Cell (RBC) Count 4.38 mill/uL (4.70-6.10); White Blood Cell (WBC) Count 8.9 thou/uL (4.8-10.8)
[2020-04-26 05:06] LABS: ALT (SGPT) 8 U/L (8-55); AST (SGOT) 14 U/L (5-34); Albumin 2.7 g/dL (3.4-4.8); Alkaline Phosphatase 49 U/L (40-110); Anion Gap 11 mmol/L (10-20); BUN (Urea Nitrogen) 8 mg/dL (8.4-25.7); Bilirubin, Total 0.3 mg/dL (0.2-1.2); Calc. Creatinine Clearance 105 mL/min (70-130); Calcium 7.7 mg/dL (7.8-10.44); Carbon Dioxide 24 mmol/L (23-31); Chloride 109 mmol/L (98-107); Estimated GFR-MDRD Greater than 90; Globulin 2.9 g/dL (2.4-3.5); Glucose 78 mg/dL (83-110); Potassium 3.3 mmol/L (3.5-5.1); Protein, Total 5.6 g/dL (5.8-8.1); Sodium 141 mmol/L (136-145)
[2020-04-26] MEDS: MEROPENEM 1 GM/50 ML 1 GM in Premix Bag 1 BAG IVPB SCH ×3 (06:33→20:54)
--- NOTE | 2020-04-26 07:42 | PRG ---
DATE OF SERVICE: 04/26/2020 SUBJECTIVE: Baseline flat affect appears to be resting/sleeping comfortably. OBJECTIVE: VITAL SIGNS: Stable. He has been afebrile for 24 hours. T-current is 99, heart rate 87, respiratory rate 16, oxygen saturation 96%, blood pressure 160/91. I's and O's 2220 in, 1350 out. Urine output yellow, with sedimented debris. Blood culture, urine culture demonstrating Escherichia coli. Repeat cultures are pending. The patient did receive his PICC line. IMPRESSION AND PLAN: Mr. Falk is a 74-year-old male with history of neurosyphilis, Parkinson's, BPH, recurrent bacteriuria, acute kidney injury, admitted for Escherichia coli urosepsis. His creatinine is back to his baseline. He did undergo his PICC line placement yesterday and planned IV meropenem for minimum two weeks. He will be discharged back to his facility with an indwelling urethral Sandoval catheter. Has a followup with me next Thursday. Will review followup, repeat urine culture. Continue his BPH medications as an outpatient. Job ID: [id number]
[2020-04-26] MEDS: Finasteride 5 MG TAB PO SCH (08:14)
[2020-04-26] MEDS: Clotrimazole/Betamethasone Cream 45 GM TUBE TOP SCH ×2 (08:14→20:54)
[2020-04-26] MEDS: Carbidopa/Levodopa 25-100 mg Tablet PO SCH ×3 (08:14→20:53)
[2020-04-26] MEDS: Tamsulosin HCl 0.4 MG CAP PO SCH (08:14)
[2020-04-26] MEDS: Atorvastatin Calcium 10 MG TAB PO SCH (20:53)
[2020-04-27 05:01] LABS: Band 16 % (5-11); Eosinophils 2 % (0-10); Hemoglobin 12.6 g/dL (14.0-18.0); Lymphocytes 14 % (21-51); MDiff Complete? YES; Mean Corpuscular HGB CONC 31.4 g/dL (32.0-36.0); Mean Corpuscular Hemoglobin 28.2 pg (27.0-31.0); Mean Corpuscular Volume 89.8 fL (78.0-98.0); Mean Platelet Volume 9.1 fL (7.4-10.4); Monocytes 6 % (0-10); Neutrophil 61 % (42-75); Platelet Count 170 thou/uL (130-400); Platelet Morphology Comment Appears Adequate; RBC Distribution Width 13.8 % (11.5-14.5); Red Blood Cell (RBC) Count 4.48 mill/uL (4.70-6.10); White Blood Cell (WBC) Count 8.7 thou/uL (4.8-10.8)
[2020-04-27 05:03] LABS: ALT (SGPT) Less than 7 U/L (8-55); AST (SGOT) 20 U/L (5-34); Albumin 2.8 g/dL (3.4-4.8); Alkaline Phosphatase 49 U/L (40-110); Anion Gap 12 mmol/L (10-20); BUN (Urea Nitrogen) 7 mg/dL (8.4-25.7); Bilirubin, Total 0.3 mg/dL (0.2-1.2); Calc. Creatinine Clearance 110 mL/min (70-130); Calcium 7.7 mg/dL (7.8-10.44); Carbon Dioxide 24 mmol/L (23-31); Chloride 108 mmol/L (98-107); Estimated GFR-MDRD Greater than 90; Globulin 3.2 g/dL (2.4-3.5); Glucose 76 mg/dL (83-110); Potassium 3.3 mmol/L (3.5-5.1); Sodium 141 mmol/L (136-145)
[2020-04-27] MEDS: MEROPENEM 1 GM/50 ML 1 GM in Premix Bag 1 BAG IVPB SCH ×3 (05:09→22:00)
--- NOTE | 2020-04-27 07:30 | PRG ---
DATE OF SERVICE: 04/27/2020 SUBJECTIVE: No new issues. Baseline flat affect and no acute distress. OBJECTIVE: VITAL SIGNS: Stable. He has been afebrile for more than 24 hours. I's and O's; 2530, 1650 out. GENERAL: The patient in no acute distress. ABDOMEN: Soft, nontender, and nondistended. No suprapubic tenderness. GENITOURINARY: Sandoval catheter adequately secured. LABORATORY DATA: White count 8.7, hemoglobin 12, and platelet 170. Renal function 0.62, on admission creatinine of 3.74. Repeat blood culture and urine culture, negative. Admitting blood culture and urine culture positive for E coli, multi-drug resistant, currently on meropenem. IMPRESSION AND PLAN: 1. Mr. Falk is a 74-year-old male, currently admitted for Escherichia coli urosepsis. 2. History of neurosyphilis. 3. Parkinson's. 4. History of benign prostatic hyperplasia with recurrent bacteria. 5. Acute kidney injury, resolved. RECOMMENDATIONS: The patient has been stable, afebrile for more than 24 hours. From my perspective, t patient can be discharged to his facility, or residential with . IV meropenem to continue for 2 weeks. Patient is to be discharged with indwelling Sandoval catheter to gravity. has follow up with me next Thursday. will sign off. Job ID: [id number] MTDD
[2020-04-27] MEDS: Sodium Chloride 0.9% 1,000 ML IV SCH ×3 (09:02→13:50)
[2020-04-27] MEDS: Tamsulosin HCl 0.4 MG CAP PO SCH (09:06)
[2020-04-27] MEDS: Finasteride 5 MG TAB PO SCH (09:06)
[2020-04-27] MEDS: Carbidopa/Levodopa 25-100 mg Tablet PO SCH ×3 (09:06→20:52)
[2020-04-27] MEDS: Clotrimazole/Betamethasone Cream 45 GM TUBE TOP SCH ×2 (09:07→20:52)
--- NOTE | 2020-04-27 18:30 | PDOC.HOSPP ---
- Subjective Encounter Date: 04/27/20 - Objective Vital Signs & Weight: Vital Signs (12 hours) Temp Pulse Resp BP Pulse Ox 04/27/20 16:29 97.6 F 104 H 18 125/77 99 04/27/20 11:27 98.3 F 85 18 163/90 H 100 04/27/20 08:58 97.8 F 90 18 170/95 H 99 Weight Admit Weight 159 lb 2.78 oz Weight 161 lb 8 oz Most Recent Monitor Data Heart Rate from ECG 103 NIBP 118/85 NIBP BP-Mean 96 Respiration from ECG 15 SpO2 100 I&O: 04/26/20 04/27/20 04/28/20 06:59 06:59 06:59 Intake Total 2220 2530 Output Total 1350 1650 Balance 870 880 Result Diagrams: 04/27/20 04:17 04/27/20 04:17 Hospitalist ROS - Medication Medications: Active Medications Generic Name Dose Route Start Last Admin Trade Name Freq PRN Reason Stop Dose Admin Atorvastatin Calcium 10 mg 04/21/20 21:00 04/26/20 20:53 Lipitor PO 10 mg HS ASHLEIGH Administration Betamethasone/Clotrimazole 0 gm 04/21/20 21:00 04/27/20 09:07 Lotrisone Cream TOP 1 applic BID ASHLEIGH Administration Carbidopa/Levodopa 1 tab 04/21/20 21:00 04/27/20 16:33 Sinemet 25-100 PO 1 tab TID ASHLEIGH Administration Finasteride 5 mg 04/22/20 09:00 04/27/20 09:06 Proscar PO 5 mg DAILY ASHLEIGH Administration Sodium Chloride 1,000 mls @ 100 mls/hr 04/21/20 20:15 04/27/20 13:50 Normal Saline 0.9% IV 1,000 mls .Q10H ASHLEIGH Administration Meropenem 1 gm/ Device 50 mls @ 100 mls/hr 04/22/20 14:00 04/27/20 13:50 IVPB 50 mls Q8HR ASHLEIGH Administration Sodium Chloride 10 ml 04/21/20 21:00 04/27/20 09:07 Flush - Normal Saline IVF 10 ml Q12HR ASHLEIGH Administration Tamsulosin HCl 0.4 mg 04/22/20 09:00 04/27/20 09:06 Flomax PO 0.4 mg DAILY ASHLEIGH Administration - Exam General Appearance: awake alert ENT: normocephalic atraumatic Neck: supple Respiratory: normal chest expansion, no tachypnea Hosp A/P (1) Septic shock Code(s): A41.9 - SEPSIS, UNSPECIFIED ORGANISM; R65.21 - SEVERE SEPSIS WITH SEPTIC SHOCK Status: Acute (2) Gram-negative bacteremia Code(s): R78.81 - BACTEREMIA Status: Acute (3) History of neurosyphilis Code(s): Z86.61 - PERSONAL HISTORY OF INFECTIONS OF THE CENTRAL NERVOUS SYSTEM Status: Acute (4) Parkinson disease Code(s): G20 - PARKINSON'S DISEASE Status: Chronic (5) Acute metabolic encephalopathy Code(s): G93.41 - METABOLIC ENCEPHALOPATHY Status: Resolved - Plan Septic shock and sepsis resolved. Urine and blood culture are showing growth of [id number] E. coli. The patient is on meropenem. Discontinue vancomycin. We will insert a PICC line tomorrow and plan to discharge the patient on meropenem to complete 2 weeks of antibiotics. The patient with history of BPH. 900 cc of urine were drained in the ED. Urology stated that the patient was planned for transurethral resection of the prostate which was delayed due to the COVID-19 pandemic. MEI resolved with resolution of septic shock and with IV hydration. Elevated troponins are likely due to demand ischemia from septic shock. The patient denies any chest pain. 04/25: Status post PICC line placement. No signs of sepsis. Plan to discharge back to the facility tomorrow to complete 2 weeks of IV meropenem. He will be discharged with the Sandoval catheter and follow with urology outpatient. 04/27: The patient remains stable. Pending placement. ISAIAS sharma was dictated on 04/26.
[2020-04-27] MEDS: Atorvastatin Calcium 10 MG TAB PO SCH (20:52)
[2020-04-28] MEDS: Sodium Chloride 0.9% 1,000 ML IV SCH ×3 (01:05→23:27)
[2020-04-28 05:07] LABS: ALT (SGPT) Less than 7 U/L (8-55); AST (SGOT) 19 U/L (5-34); Albumin 2.8 g/dL (3.4-4.8); Alkaline Phosphatase 44 U/L (40-110); Anion Gap 12 mmol/L (10-20); BUN (Urea Nitrogen) 5 mg/dL (8.4-25.7); Bilirubin, Total 0.3 mg/dL (0.2-1.2); Calc. Creatinine Clearance 119 mL/min (70-130); Calcium 7.6 mg/dL (7.8-10.44); Carbon Dioxide 26 mmol/L (23-31); Chloride 106 mmol/L (98-107); Estimated GFR-MDRD Greater than 90; Glucose 77 mg/dL (83-110); Protein, Total 5.8 g/dL (5.8-8.1); Sodium 141 mmol/L (136-145)
[2020-04-28] MEDS: MEROPENEM 1 GM/50 ML 1 GM in Premix Bag 1 BAG IVPB SCH ×3 (05:10→21:12)
[2020-04-28 05:14] LABS: Potassium 2.7 mmol/L (3.5-5.1)
[2020-04-28] MEDS ORDERED: Potassium Chloride 20 MEQ TAB PO SCH (05:30)
[2020-04-28 06:40] LABS: Band 15 % (5-11); Hemoglobin 12.4 g/dL (14.0-18.0); Lymphocytes 13 % (21-51); MDiff Complete? YES; Mean Corpuscular Hemoglobin 28.5 pg (27.0-31.0); Mean Corpuscular Volume 89.1 fL (78.0-98.0); Mean Platelet Volume 8.6 fL (7.4-10.4); Monocytes 6 % (0-10); Neutrophil 66 % (42-75); Platelet Count 205 thou/uL (130-400); RBC Distribution Width 13.6 % (11.5-14.5); Red Blood Cell (RBC) Count 4.33 mill/uL (4.70-6.10); White Blood Cell (WBC) Count 8.5 thou/uL (4.8-10.8)
[2020-04-28] MEDS: Clotrimazole/Betamethasone Cream 45 GM TUBE TOP SCH ×2 (07:54→20:28)
[2020-04-28] MEDS: Tamsulosin HCl 0.4 MG CAP PO SCH (07:54)
[2020-04-28] MEDS: Finasteride 5 MG TAB PO SCH (07:54)
[2020-04-28] MEDS: Carbidopa/Levodopa 25-100 mg Tablet PO SCH ×3 (07:54→20:28)
[2020-04-28 12:13] LABS: Potassium 3.3 mmol/L (3.5-5.1)
--- NOTE | 2020-04-28 14:22 | EKG ---
Test Reason : Blood Pressure : / mmHG Vent. Rate : 136 BPM Atrial Rate : 136 BPM P-R Int : 166 ms QRS Dur : 070 ms QT Int : 252 ms P-R-T Axes : 025 -48 045 degrees QTc Int : 379 ms Sinus tachycardia with occasional Premature ventricular complexes and Fusion complexes RSR' or QR pattern in V1 suggests right ventricular conduction delay Left anterior fascicular block Minimal voltage criteria for LVH, may be normal variant Abnormal ECG Confirmed by TONY WAYNE M.D. ([id number]), copy editor ANJEL CANCINO ([id number]) on 04/28/2020 2:22:05 PM Referred By: Confirmed By:TONY WAYNE M.D.
[2020-04-28] MEDS: Atorvastatin Calcium 10 MG TAB PO SCH (20:28)
--- NOTE | 2020-04-28 21:39 | PDOC.HOSPP ---
- Subjective Encounter Date: 04/28/20 - Objective Vital Signs & Weight: Vital Signs (12 hours) Temp Pulse Resp BP Pulse Ox 04/28/20 15:18 98.6 F 98 14 140/84 94 L 04/28/20 11:45 98.2 F 90 14 139/85 95 Weight Admit Weight 159 lb 2.78 oz Weight 161 lb 7 oz Most Recent Monitor Data Heart Rate from ECG 103 NIBP 118/85 NIBP BP-Mean 96 Respiration from ECG 15 SpO2 100 I&O: 04/27/20 04/28/20 04/29/20 06:59 06:59 06:59 Intake Total 2530 2400 1440 Output Total 1650 1475 600 Balance 880 925 840 Result Diagrams: 04/28/20 04:27 04/28/20 11:52 Hospitalist ROS - Medication Medications: Active Medications Generic Name Dose Route Start Last Admin Trade Name Freq PRN Reason Stop Dose Admin Atorvastatin Calcium 10 mg 04/21/20 21:00 04/28/20 20:28 Lipitor PO 10 mg HS ASHLEIGH Administration Betamethasone/Clotrimazole 0 gm 04/21/20 21:00 04/28/20 20:28 Lotrisone Cream TOP 1 applic BID ASHLEIGH Administration Carbidopa/Levodopa 1 tab 04/21/20 21:00 04/28/20 20:28 Sinemet 25-100 PO 1 tab TID ASHLEIGH Administration Finasteride 5 mg 04/22/20 09:00 04/28/20 07:54 Proscar PO 5 mg DAILY ASHLEIGH Administration Sodium Chloride 1,000 mls @ 100 mls/hr 04/21/20 20:15 04/28/20 12:41 Normal Saline 0.9% IV 1,000 mls .Q10H ASHLEIGH Administration Meropenem 1 gm/ Device 50 mls @ 100 mls/hr 04/22/20 14:00 04/28/20 21:12 IVPB 50 mls Q8HR ASHLEIGH Administration Sodium Chloride 10 ml 04/21/20 21:00 04/28/20 20:29 Flush - Normal Saline IVF Not Given Q12HR ASHLEIGH Tamsulosin HCl 0.4 mg 04/22/20 09:00 04/28/20 07:54 Flomax PO 0.4 mg DAILY ASHLEIGH Administration - Exam General Appearance: awake alert ENT: normocephalic atraumatic Neck: supple Heart: RRR Respiratory: normal chest expansion, no tachypnea Gastrointestinal: soft, non-tender, non-distended, normal bowel sounds Hosp A/P (1) Septic shock Code(s): A41.9 - SEPSIS, UNSPECIFIED ORGANISM; R65.21 - SEVERE SEPSIS WITH SEPTIC SHOCK Status: Acute (2) Gram-negative bacteremia Code(s): R78.81 - BACTEREMIA Status: Acute (3) History of neurosyphilis Code(s): Z86.61 - PERSONAL HISTORY OF INFECTIONS OF THE CENTRAL NERVOUS SYSTEM Status: Acute (4) Parkinson disease Code(s): G20 - PARKINSON'S DISEASE Status: Chronic (5) Acute metabolic encephalopathy Code(s): G93.41 - METABOLIC ENCEPHALOPATHY Status: Resolved - Plan Septic shock and sepsis resolved. Urine and blood culture are showing growth of [id number] E. coli. The patient is on meropenem. Discontinue vancomycin. We will insert a PICC line tomorrow and plan to discharge the patient on meropenem to complete 2 weeks of antibiotics. The patient with history of BPH. 900 cc of urine were drained in the ED. Urology stated that the patient was planned for transurethral resection of the prostate which was delayed due to the COVID-19 pandemic. MEI resolved with resolution of septic shock and with IV hydration. Elevated troponins are likely due to demand ischemia from septic shock. The patient denies any chest pain. 04/25: Status post PICC line placement. No signs of sepsis. Plan to discharge back to the facility tomorrow to complete 2 weeks of IV meropenem. He will be discharged with the Sandoval catheter and follow with urology outpatient. 04/27: The patient remains stable. Pending placement. ISAIAS sharma was dictated on 04/26. 04/28: No new complaints. No signs of sepsis. Continue IV antibiotics. Pending placement.
[2020-04-29 04:54] LABS: ALT (SGPT) Less than 7 U/L (8-55); AST (SGOT) 18 U/L (5-34); Albumin 2.8 g/dL (3.4-4.8); Alkaline Phosphatase 45 U/L (40-110); Anion Gap 13 mmol/L (10-20); BUN (Urea Nitrogen) 5 mg/dL (8.4-25.7); Bilirubin, Total 0.4 mg/dL (0.2-1.2); Calc. Creatinine Clearance 119 mL/min (70-130); Calcium 7.6 mg/dL (7.8-10.44); Carbon Dioxide 25 mmol/L (23-31); Chloride 107 mmol/L (98-107); Estimated GFR-MDRD Greater than 90; Glucose 60 mg/dL (83-110); Protein, Total 5.8 g/dL (5.8-8.1); Sodium 142 mmol/L (136-145)
[2020-04-29 04:58] LABS: Potassium 2.8 mmol/L (3.5-5.1)
[2020-04-29 05:04] LABS: Band 9 % (5-11); Eosinophils 2 % (0-10); Hemoglobin 12.5 g/dL (14.0-18.0); Lymphocytes 16 % (21-51); MDiff Complete? YES; Mean Corpuscular HGB CONC 32.2 g/dL (32.0-36.0); Mean Corpuscular Hemoglobin 28.9 pg (27.0-31.0); Mean Corpuscular Volume 89.6 fL (78.0-98.0); Mean Platelet Volume 8.8 fL (7.4-10.4); Monocytes 6 % (0-10); Neutrophil 66 % (42-75); Platelet Count 221 thou/uL (130-400); Platelet Morphology Comment Appears Adequate; RBC Distribution Width 13.7 % (11.5-14.5); Reactive Lymphocytes 1 % (0-10); Red Blood Cell (RBC) Count 4.33 mill/uL (4.70-6.10); White Blood Cell (WBC) Count 8.2 thou/uL (4.8-10.8)
[2020-04-29] MEDS: MEROPENEM 1 GM/50 ML 1 GM in Premix Bag 1 BAG IVPB SCH ×3 (05:54→21:24)
[2020-04-29] MEDS ORDERED: Potassium Chloride 20 MEQ TAB PO SCH ×2 (06:00→11:00)
[2020-04-29] MEDS: Clotrimazole/Betamethasone Cream 45 GM TUBE TOP SCH ×2 (08:44→21:33)
[2020-04-29] MEDS: Sodium Chloride 0.9% 1,000 ML IV SCH ×2 (08:44→17:29)
[2020-04-29] MEDS: Tamsulosin HCl 0.4 MG CAP PO SCH (08:44)
[2020-04-29] MEDS: Finasteride 5 MG TAB PO SCH (08:44)
[2020-04-29] MEDS: Carbidopa/Levodopa 25-100 mg Tablet PO SCH ×3 (08:44→21:24)
[2020-04-29] MEDS: Potassium Chloride 20 MEQ in Premix Bag 1 BAG IVPB SCH ×2 (12:40→18:25)
[2020-04-29 12:42] LABS: Potassium 3.6 mmol/L (3.5-5.1)
--- NOTE | 2020-04-29 19:35 | PDOC.HOSPP ---
- Subjective Encounter Date: 04/29/20 Subjective: Confused but at his baseline. - Objective Vital Signs & Weight: Vital Signs (12 hours) Temp Pulse Resp BP Pulse Ox 04/29/20 15:00 98.2 F 93 16 172/95 H 100 04/29/20 11:40 98.2 F 100 16 153/89 H 97 Weight Admit Weight 159 lb 2.78 oz Weight 161 lb 9 oz Most Recent Monitor Data Heart Rate from ECG 103 NIBP 118/85 NIBP BP-Mean 96 Respiration from ECG 15 SpO2 100 I&O: 04/28/20 04/29/20 04/30/20 06:59 06:59 06:59 Intake Total 2400 2570 1220 Output Total 1475 1350 1100 Balance 925 1220 120 Result Diagrams: 04/29/20 03:46 04/29/20 11:49 Hospitalist ROS - Medication Medications: Active Medications Generic Name Dose Route Start Last Admin Trade Name Freq PRN Reason Stop Dose Admin Atorvastatin Calcium 10 mg 04/21/20 21:00 04/28/20 20:28 Lipitor PO 10 mg HS ASHLEIGH Administration Betamethasone/Clotrimazole 0 gm 04/21/20 21:00 04/29/20 08:44 Lotrisone Cream TOP 1 applic BID ASHLEIGH Administration Carbidopa/Levodopa 1 tab 04/21/20 21:00 04/29/20 14:43 Sinemet 25-100 PO 1 tab TID ASHLEIGH Administration Finasteride 5 mg 04/22/20 09:00 04/29/20 08:44 Proscar PO 5 mg DAILY ASHLEIGH Administration Sodium Chloride 1,000 mls @ 100 mls/hr 04/21/20 20:15 04/29/20 17:29 Normal Saline 0.9% IV Not Given .Q10H ASHLEIGH Meropenem 1 gm/ Device 50 mls @ 100 mls/hr 04/22/20 14:00 04/29/20 14:42 IVPB 50 mls Q8HR ASHLEIGH Administration Potassium Chloride 20 meq/ 100 mls @ 50 mls/hr 04/29/20 12:30 04/29/20 18:25 Device IVPB 04/30/20 08:29 100 mls Q6H ASHLEIGH Administration Sodium Chloride 10 ml 04/21/20 21:00 04/29/20 08:45 Flush - Normal Saline IVF Not Given Q12HR ASHLEIGH Tamsulosin HCl 0.4 mg 04/22/20 09:00 04/29/20 08:44 Flomax PO 0.4 mg DAILY ASHLEIGH Administration - Exam General Appearance: awake alert ENT: normocephalic atraumatic Heart: RRR Respiratory: CTAB, normal chest expansion, no tachypnea Gastrointestinal: soft, non-tender, non-distended, normal bowel sounds Hosp A/P (1) Septic shock Code(s): A41.9 - SEPSIS, UNSPECIFIED ORGANISM; R65.21 - SEVERE SEPSIS WITH SEPTIC SHOCK Status: Acute (2) Gram-negative bacteremia Code(s): R78.81 - BACTEREMIA Status: Acute (3) History of neurosyphilis Code(s): Z86.61 - PERSONAL HISTORY OF INFECTIONS OF THE CENTRAL NERVOUS SYSTEM Status: Acute (4) Parkinson disease Code(s): G20 - PARKINSON'S DISEASE Status: Chronic (5) Acute metabolic encephalopathy Code(s): G93.41 - METABOLIC ENCEPHALOPATHY Status: Resolved - Plan Septic shock and sepsis resolved. Urine and blood culture are showing growth of [id number]-dyobgpysq E. coli. The patient is on meropenem. Discontinue vancomycin. We will insert a PICC line tomorrow and plan to discharge the patient on meropenem to complete 2 weeks of antibiotics. The patient with history of BPH. 900 cc of urine were drained in the ED. Urology stated that the patient was planned for transurethral resection of the prostate which was delayed due to the COVID-19 pandemic. MEI resolved with resolution of septic shock and with IV hydration. Elevated troponins are likely due to demand ischemia from septic shock. The patient denies any chest pain. 04/29: Status post PICC line placement. No signs of sepsis. Plan to discharge back to the facility tomorrow to complete 2 weeks of IV meropenem for E. coli bactremia. He will be discharged with the Sandoval catheter and follow with urology outpatient. Replace potassium
[2020-04-29] MEDS: Atorvastatin Calcium 10 MG TAB PO SCH (21:24)
[2020-04-30] MEDS: Potassium Chloride 20 MEQ in Premix Bag 1 BAG IVPB SCH ×2 (00:08→05:40)
[2020-04-30] MEDS: Sodium Chloride 0.9% 1,000 ML IV SCH (00:08)
[2020-04-30 04:36] LABS: ALT (SGPT) Less than 7 U/L (8-55); AST (SGOT) 16 U/L (5-34); Albumin 2.8 g/dL (3.4-4.8); Alkaline Phosphatase 42 U/L (40-110); Anion Gap 13 mmol/L (10-20); BUN (Urea Nitrogen) Less than 4 mg/dL (8.4-25.7); Bilirubin, Total 0.4 mg/dL (0.2-1.2); Calc. Creatinine Clearance 124 mL/min (70-130); Calcium 7.8 mg/dL (7.8-10.44); Carbon Dioxide 25 mmol/L (23-31); Chloride 106 mmol/L (98-107); Estimated GFR-MDRD Greater than 90; Globulin 2.9 g/dL (2.4-3.5); Potassium 3.5 mmol/L (3.5-5.1); Protein, Total 5.7 g/dL (5.8-8.1); Sodium 140 mmol/L (136-145)
[2020-04-30 04:47] LABS: Glucose 56 mg/dL (83-110)
[2020-04-30] MEDS ORDERED: Dextrose 50% Abboject 50 ML SYRINGE ONE (04:57)
[2020-04-30] MEDS ORDERED: Dextrose 50% Abboject 50 ML SYRINGE SLOW IVP PRN ×2 (05:02)
[2020-04-30] MEDS: MEROPENEM 1 GM/50 ML 1 GM in Premix Bag 1 BAG IVPB SCH ×3 (05:05→21:22)
[2020-04-30] MEDS ORDERED: Dextrose 5 % And 0.9 % NaCl 1,000 ML IV SCH (05:15)
[2020-04-30 07:22] LABS: Hemoglobin 12.2 g/dL (14.0-18.0); Mean Corpuscular HGB CONC 32.2 g/dL (32.0-36.0); Mean Corpuscular Hemoglobin 28.7 pg (27.0-31.0); Mean Corpuscular Volume 89.3 fL (78.0-98.0); Mean Platelet Volume 8.6 fL (7.4-10.4); Platelet Count 234 thou/uL (130-400); RBC Distribution Width 13.9 % (11.5-14.5); Red Blood Cell (RBC) Count 4.25 mill/uL (4.70-6.10); White Blood Cell (WBC) Count 8.1 thou/uL (4.8-10.8)
[2020-04-30 08:02] LABS: Lymphocytes 9 % (21-51); MDiff Complete? YES; Monocytes 9 % (0-10); Neutrophil 73 % (42-75)
--- NOTE | 2020-04-30 08:14 | PDOC.HOSPP ---
- Subjective Encounter Date: 04/30/20 Encounter Time: 14:00 Subjective: Patient without complaints today. Minimal vocalization. - Objective Vital Signs & Weight: Vital Signs (12 hours) Temp Pulse Resp BP Pulse Ox 04/30/20 07:05 97.8 F 90 10 L 155/87 H 94 L 04/30/20 03:32 99.1 F 89 17 159/80 H 97 04/30/20 00:35 100 04/30/20 00:08 102 H Weight Admit Weight 159 lb 2.78 oz Weight 160 lb 12.8 oz Most Recent Monitor Data Heart Rate from ECG 103 NIBP 118/85 NIBP BP-Mean 96 Respiration from ECG 15 SpO2 100 I&O: 04/29/20 04/30/20 05/01/20 06:59 06:59 06:59 Intake Total 2570 2740 Output Total 1350 1975 Balance 1220 765 Result Diagrams: 04/30/20 03:42 04/30/20 03:42 Additional Labs: Accuchecks 04/30/20 04:55 POC Glucose 58 L* Hospitalist ROS - Review of Systems ROS unobtainable: due to mental status - Medication Medications: Active Medications Generic Name Dose Route Start Last Admin Trade Name Freq PRN Reason Stop Dose Admin Atorvastatin Calcium 10 mg 04/21/20 21:00 04/29/20 21:24 Lipitor PO 10 mg HS ASHLEIGH Administration Betamethasone/Clotrimazole 0 gm 04/21/20 21:00 04/29/20 21:33 Lotrisone Cream TOP 1 applic BID ASHLEIGH Administration Carbidopa/Levodopa 1 tab 04/21/20 21:00 04/29/20 21:24 Sinemet 25-100 PO 1 tab TID ASHLEIGH Administration Finasteride 5 mg 04/22/20 09:00 04/29/20 08:44 Proscar PO 5 mg DAILY ASHLEIGH Administration Meropenem 1 gm/ Device 50 mls @ 100 mls/hr 04/22/20 14:00 04/30/20 05:05 IVPB 50 mls Q8HR ASHLEIGH Administration Potassium Chloride 20 meq/ 100 mls @ 50 mls/hr 04/29/20 12:30 04/30/20 05:40 Device IVPB 04/30/20 08:29 100 mls Q6H ASHLEIGH Administration Dextrose/Sodium Chloride 1,000 mls @ 100 mls/hr 04/30/20 05:15 04/30/20 05:41 D5 0.9% Ns IV 1,000 mls .Q10H ASHLEIGH Administration Sodium Chloride 10 ml 04/21/20 21:00 04/29/20 21:24 Flush - Normal Saline IVF 10 ml Q12HR ASHLEIGH Administration Tamsulosin HCl 0.4 mg 04/22/20 09:00 04/29/20 08:44 Flomax PO 0.4 mg DAILY ASHLEIGH Administration - Exam General Appearance: NAD, awake alert ENT: moist mucosa Heart: RRR, no murmur, no gallops, no rubs Respiratory: CTAB, no wheezes, no rales, no ronchi Gastrointestinal: soft, non-tender, non-distended, normal bowel sounds Psychiatric: normal affect, normal behavior Hosp A/P (1) Septic shock Code(s): A41.9 - SEPSIS, UNSPECIFIED ORGANISM; R65.21 - SEVERE SEPSIS WITH SEPTIC SHOCK Status: Resolved (2) Gram-negative bacteremia Code(s): R78.81 - BACTEREMIA Status: Acute (3) UTI (urinary tract infection) Status: Acute Qualifiers: Urinary tract infection type: acute cystitis Hematuria presence: without hematuria Qualified Code(s): N30.00 - Acute cystitis without hematuria (4) Acute encephalopathy Code(s): G93.40 - ENCEPHALOPATHY, UNSPECIFIED Status: Acute (5) History of neurosyphilis Code(s): Z86.61 - PERSONAL HISTORY OF INFECTIONS OF THE CENTRAL NERVOUS SYSTEM Status: Chronic (6) Dyslipidemia Code(s): E78.5 - HYPERLIPIDEMIA, UNSPECIFIED Status: Chronic (7) HTN (hypertension) Code(s): I10 - ESSENTIAL (PRIMARY) HYPERTENSION Status: Chronic Qualifiers: (8) Parkinson disease Code(s): G20 - PARKINSON'S DISEASE Status: Chronic - Plan Septic shock and sepsis resolved. Urine and blood culture are showing growth of jzyms-zwip-gaqvwbtgq E. coli. The patient is on meropenem for 2 weeks. Discontinued vancomycin. PICC placed and plan to discharge the patient today on meropenem to complete 2 weeks of antibiotics. The patient with history of BPH. 900 cc of urine were drained in the ED. Urology stated that the patient was planned for transurethral resection of the prostate which was delayed due to the COVID-19 pandemic. MEI resolved with resolution of septic shock and with IV hydration. Elevated troponins are likely due to demand ischemia from septic shock. The patient denies any chest pain. He will be discharged with the Sandoval catheter and follow with urology outpatient scheduled for Thursday. Patient with low blood sugars overnight, had to be started on D10W. Poor diet. Will start low dose steroid and try off the fluids. Recheck blood sugars overnight and possibly to SNF tomorrow.
[2020-04-30] MEDS: Clotrimazole/Betamethasone Cream 45 GM TUBE TOP SCH ×2 (09:20→21:23)
[2020-04-30] MEDS: Carbidopa/Levodopa 25-100 mg Tablet PO SCH ×3 (09:20→21:22)
[2020-04-30] MEDS: Finasteride 5 MG TAB PO SCH (09:20)
[2020-04-30] MEDS: Tamsulosin HCl 0.4 MG CAP PO SCH (09:20)
[2020-04-30] MEDS ORDERED: Dexamethasone 1 MG TAB PO SCH (15:00)
[2020-04-30] MEDS: Dexamethasone 1 MG TAB PO SCH (16:38)
[2020-04-30] MEDS: Atorvastatin Calcium 10 MG TAB PO SCH (21:22)
[2020-05-01 04:57] LABS: Band 2 % (5-11); Hemoglobin 12.7 g/dL (14.0-18.0); Hypochromia SLIGHT = 6-15 cells (100X) (0-5/hpf); Lymphocytes 6 % (21-51); MDiff Complete? YES; Mean Corpuscular HGB CONC 32.3 g/dL (32.0-36.0); Mean Corpuscular Hemoglobin 28.6 pg (27.0-31.0); Mean Corpuscular Volume 88.7 fL (78.0-98.0); Mean Platelet Volume 8.5 fL (7.4-10.4); Neutrophil 92 % (42-75); Platelet Count 272 thou/uL (130-400); Platelet Morphology Comment Appears Adequate; RBC Distribution Width 13.7 % (11.5-14.5); Red Blood Cell (RBC) Count 4.42 mill/uL (4.70-6.10); White Blood Cell (WBC) Count 8.3 thou/uL (4.8-10.8)
[2020-05-01] MEDS: MEROPENEM 1 GM/50 ML 1 GM in Premix Bag 1 BAG IVPB SCH (05:15)
[2020-05-01 05:16] LABS: ALT (SGPT) Less than 7 U/L (8-55); AST (SGOT) 12 U/L (5-34); Albumin 2.8 g/dL (3.4-4.8); Alkaline Phosphatase 41 U/L (40-110); Anion Gap 11 mmol/L (10-20); BUN (Urea Nitrogen) Less than 4 mg/dL (8.4-25.7); Bilirubin, Total 0.4 mg/dL (0.2-1.2); Calc. Creatinine Clearance 125 mL/min (70-130); Calcium 7.7 mg/dL (7.8-10.44); Carbon Dioxide 28 mmol/L (23-31); Chloride 102 mmol/L (98-107); Estimated GFR-MDRD Greater than 90; Glucose 115 mg/dL (83-110); Potassium 3.4 mmol/L (3.5-5.1); Protein, Total 5.8 g/dL (5.8-8.1); Sodium 138 mmol/L (136-145)
--- NOTE | 2020-05-01 07:47 | PRG ---
DATE OF SERVICE: 05/01/2020 SUBJECTIVE: The patient resting comfortably, events over the weekend reviewed. The patient was not discharged to facility as anticipated, as daughter requesting senior care facility. Placement yet to be finalized. He has been afebrile. OBJECTIVE: VITAL SIGNS: Temperature 98.4, heart rate 89, respiratory rate 18, oxygen saturation 92, blood pressure 134/84. Is and Os, 1240 in, 2170 out. He is negative 930 mL. ABDOMEN: Soft, nontender, nondistended. No suprapubic tenderness or CVA tenderness of concern. GENITOURINARY: Sandoval catheter adequately secured, demonstrating clear yellow urine. PERTINENT LABORATORY DATA: White count 8, hemoglobin 12, and platelet 272. Creatinine is 0.5, admitting creatinine is 3.74. April 21, urine culture and blood culture demonstrating Escherichia coli. Repeat urine culture and blood culture April 25 negative. The patient currently on IV meropenem. Start date on IV meropenem is April 22. IMPRESSION AND PLAN: Mr. Falk is a 74-year-old male admitted for, 1. Escherichia coli urosepsis. 2. Acute kidney injury, resolved. 3. Current CT demonstrating nonspecific hypodensity in the bladder, prior cystoscopy negative. 4. History of benign prostatic hypertrophy, with chronic bacteria. The patient' s workup for BPH surgery was deferred due to COVID-19 pandemic. The patient currently admitted for above issues. Placement pending. He scheduled for followup from hospital today in my office. However, as he is currently in-house , I will reschedule his followup appointment to an office cystoscopy, May 10. Please continue his IV/meropenem at least until May 11 as he will undergo cystoscopic evaluation of his bladder on May 10. The patient cleared to be discharged to senior care facility with indwelling urethral Sandoval catheter due to presenting PVR of 900 mL with acute kidney injury. Await placement. Job ID: [id number] MTDD
--- NOTE | 2020-05-01 08:02 | PDOC.HOSPP ---
- Subjective Encounter Date: 05/01/20 Encounter Time: 09:00 Subjective: Patient without complaints. Not verbalizing much and not eating well. Blood sugars fine off sugar with steroids started. - Objective Vital Signs & Weight: Vital Signs (12 hours) Temp Pulse Resp BP Pulse Ox 05/01/20 07:20 97.9 F 97 12 127/78 95 05/01/20 04:00 98.4 F 89 18 134/84 92 L 05/01/20 00:22 94 05/01/20 00:00 96 Weight Admit Weight 159 lb 2.78 oz Weight 160 lb 1.6 oz Most Recent Monitor Data Heart Rate from ECG 103 NIBP 118/85 NIBP BP-Mean 96 Respiration from ECG 15 SpO2 100 I&O: 04/30/20 05/01/20 05/02/20 06:59 06:59 06:59 Intake Total 2740 1240 Output Total 1975 2175 Balance 765 935 Result Diagrams: 05/01/20 03:45 05/01/20 03:45 Additional Labs: Accuchecks 05/01/20 04/30/20 04/30/20 05:55 20:28 11:15 POC Glucose 98 117 H 139 H 04/30/20 05:24 POC Glucose 160 H Hospitalist ROS - Review of Systems ROS unobtainable: due to mental status - Medication Medications: Active Medications Generic Name Dose Route Start Last Admin Trade Name Lucretia PRN Reason Stop Dose Admin Atorvastatin Calcium 10 mg 04/21/20 21:00 04/30/20 21:22 Lipitor PO 10 mg HS ASHLEIGH Administration Betamethasone/Clotrimazole 0 gm 04/21/20 21:00 04/30/20 21:23 Lotrisone Cream TOP 1 applic BID ASHLEIGH Administration Carbidopa/Levodopa 1 tab 04/21/20 21:00 04/30/20 21:22 Sinemet 25-100 PO 1 tab TID ASHLEIGH Administration Dexamethasone 2 mg 04/30/20 17:00 04/30/20 16:38 Decadron PO 2 mg BID-WM ASHLEIGH Administration Finasteride 5 mg 04/22/20 09:00 04/30/20 09:20 Proscar PO 5 mg DAILY ASHLEIGH Administration Meropenem 1 gm/ Device 50 mls @ 100 mls/hr 04/22/20 14:00 05/01/20 05:15 IVPB 50 mls Q8HR ASHLEIGH Administration Sodium Chloride 10 ml 04/21/20 21:00 04/30/20 21:23 Flush - Normal Saline IVF 10 ml Q12HR ASHLEIGH Administration Tamsulosin HCl 0.4 mg 04/22/20 09:00 04/30/20 09:20 Flomax PO 0.4 mg DAILY ASHLEIGH Administration - Exam General Appearance: NAD General - other findings: sleepy ENT: moist mucosa Heart: RRR, no murmur, no gallops, no rubs Respiratory: CTAB, no wheezes, no rales, no ronchi Gastrointestinal: soft, non-tender, non-distended, normal bowel sounds Psychiatric: normal affect, lethargic Hosp A/P (1) Septic shock Code(s): A41.9 - SEPSIS, UNSPECIFIED ORGANISM; R65.21 - SEVERE SEPSIS WITH SEPTIC SHOCK Status: Resolved (2) Gram-negative bacteremia Code(s): R78.81 - BACTEREMIA Status: Acute (3) UTI (urinary tract infection) Status: Acute Qualifiers: Urinary tract infection type: acute cystitis Hematuria presence: without hematuria Qualified Code(s): N30.00 - Acute cystitis without hematuria (4) Acute encephalopathy Code(s): G93.40 - ENCEPHALOPATHY, UNSPECIFIED Status: Acute (5) History of neurosyphilis Code(s): Z86.61 - PERSONAL HISTORY OF INFECTIONS OF THE CENTRAL NERVOUS SYSTEM Status: Chronic (6) Dyslipidemia Code(s): E78.5 - HYPERLIPIDEMIA, UNSPECIFIED Status: Chronic (7) HTN (hypertension) Code(s): I10 - ESSENTIAL (PRIMARY) HYPERTENSION Status: Chronic Qualifiers: (8) Parkinson disease Code(s): G20 - PARKINSON'S DISEASE Status: Chronic - Plan Septic shock and sepsis resolved. Urine and blood culture are showing growth of kpvti-[id number]-hkvhydgzn E. coli. The patient is on meropenem for 2 weeks. Discontinued vancomycin. PICC placed and plan to discharge the patient today on meropenem to complete 2 weeks of antibiotics. The patient with history of BPH. 900 cc of urine were drained in the ED. Urology stated that the patient was planned for transurethral resection of the prostate which was delayed due to the COVID-19 pandemic. MEI resolved with resolution of septic shock and with IV hydration. Elevated troponins are likely due to demand ischemia from septic shock. The patient denies any chest pain. He will be discharged with the Sandoval catheter and follow with urology outpatient scheduled for Thursday. Patient with low blood sugars Thursday morning, started on steroids and IV dextrose d/c'd with normal glucose this AM. Stable for d/c to SNF. Needs Meropenem until at least May 11, appointment with urology on May 10
[2020-05-01] MEDS: Dexamethasone 1 MG TAB PO SCH (08:17)
[2020-05-01] MEDS: Carbidopa/Levodopa 25-100 mg Tablet PO SCH (08:17)
[2020-05-01] MEDS: Tamsulosin HCl 0.4 MG CAP PO SCH (08:17)
[2020-05-01] MEDS: Finasteride 5 MG TAB PO SCH (08:17)
[2020-05-01] MEDS: Clotrimazole/Betamethasone Cream 45 GM TUBE TOP SCH (08:18)
[2020-05-01 11:43] VITALS: BP 109/20; TEMP 98.2
--- NOTE | 2020-05-02 04:38 | DIS ---
DATE OF ADMISSION: 04/21/2020 DATE OF DISCHARGE: 05/01/2020 PRIMARY CARE PHYSICIAN: Veena Chambers MD REASON FOR ADMISSION: Septic shock. DISCHARGE DIAGNOSES: 1. Septic shock, resolved. 2. Gram-negative bacteremia with multidrug resistant E coli. 3. Urinary tract infection. 4. Benign prostatic hyperplasia. 5. Acute encephalopathy. 6. History of neurosyphilis. 7. Parkinson disease. 8. Dyslipidemia. 9. Hypertension. PROCEDURES: 1. CT of the abdomen and pelvis with and without contrast showing no evidence for nephrolithiasis or obstructive uropathy. Ill-defined hypodensity in the base of the bladder. Bilateral renal cortical cysts and normal bowels and appendix. 2. CT of the brain without contrast showing no acute intracranial process. 3. Left upper extremity PICC line placement with ultrasound guidance. 4. Echocardiogram showing ejection fraction of 50% to 55% without significant valvular disease. CONSULTATIONS: 1. Pulmonology, Dr. Mcgill. 2. Urology, Dr. Barber for Dr. Demarco. SUMMARY OF HOSPITAL COURSE: This is a 74-year-old male, with a history of dementia, neurosyphilis, sent to ER from [facility] for evaluation of fever, worsening mental status. Patient was found to be in septic shock with acute renal failure and acute urinary retention. He is put in the ICU, given broad-spectrum IV antibiotics and fluids along with Levophed. Patient improved during his hospital course. He did grow back E coli from two blood cultures and a urine culture. The E coli was sensitive to amikacin, gentamicin, meropenem, and Zosyn only. Patient was transitioned to meropenem treatment IV. Repeat blood cultures done four days later were negative and repeat urine culture was negative as well. Dr. Barber was consulted and eventually Dr. Demarco took over and managed the patient's UTI with sepsis. He did recommend leaving in the Sandoval. He is planning procedure outpatient. Patient improved slowly during hospitalization and his septic shock resolved. He did have some hypoglycemic episodes with poor p.o. intake. He was started on some low-dose dexamethasone and dextrose and his fluid was able to be discontinued with stable blood sugars. On the day of discharge, patient was determined to be stable for transfer to a [facility] facility with IV meropenem to continue until seen by Dr. Demarco in the clinic next week. [facility] ACTIVITY: As tolerated. DIET: Healthy heart diet NDD 2 ground texture, extra sauce and gravy, nectar thick liquids and controlled sips by straw with a feeder. THERAPY: Occupational, physical, and speech therapy. IV THERAPY INSTRUCTIONS,: PICC line care. FOLLOWUP: Follow up with Dr. Demarco on May 10 at 11 a.m., with at [facility]. DISCHARGE MEDICATIONS: 1. Meropenem 1 g IV q.8 hours until least May 11. 2. Lactobacillus one tablet 3 times a day. 3. Atorvastatin 10 mg at night. 4. Carbidopa levodopa 25/100 mg tablets, one tablet 3 times a day. 5. Lotrisone cream applied twice a day. 6. Dexamethasone 2 mg twice a day. 7. Finasteride 5 mg daily. 8. Midodrine 5 mg q.8 hours as needed for low blood pressure. 9. Tamsulosin 0.4 mg daily. 10. Acetaminophen as needed. 11. Maalox as needed. 12. Docusate 200 mg daily. 13. Vitamin D2, 50,000 units p.o. daily. 14. Nexium 40 mg daily. 15. Nystatin apply topically daily. 16. Trazodone 50 mg daily. Arranging the details of this discharge took 35 minutes. Job ID: [id number]
--- NOTE | 2020-05-02 08:48 | DIS ---
DATE OF ADMISSION: 04/21/2020 DATE OF DISCHARGE: 05/01/2020 DISCHARGE DIAGNOSES: 1. Septic shock. 2. Complicated urinary tract infection. 3. Escherichia coli bacteremia. 4. Parkinson disease. 5. History of neurosyphilis. 6. History of dementia. DISCHARGE MEDICATIONS: 1. Meropenem 1 g IV q.8 hours for 2 weeks. 2. Lactobacillus acidophilus one tablet orally t.i.d. with meals for 2 weeks. 3. Nystatin one application topically every day shift for excoriation. 4. Trazodone 50 mg orally daily. 5. Esomeprazole 40 mg orally daily. 6. Docusate 200 mg orally daily. 7. Vitamin D2 51771 units orally daily. 8. Maalox 30 mL q.8 hours as needed for GI upset. 9. Tylenol 500 mg orally q.6 hours as needed for pain. 10. Tamsulosin 0.4 mg orally daily. 11. Midodrine 5 mg orally q.8 hours as needed for systolic blood pressure less than 100 or diastolic less than 60. 12. Finasteride 5 mg orally daily. 13. Lotrisone cream apply topically twice daily. 14. Carbidopa and levodopa 25/100 mg tablet, take one tablet orally t.i.d. 15. Atorvastatin 10 mg orally nightly. DISCHARGE INSTRUCTIONS: 1. Repeat two sets of blood cultures after two weeks. 2. Sandoval catheter remains in place until the patient followup with Urology next Thursday. HISTORY OF PRESENT ILLNESS AND HOSPITAL COURSE: The patient is a 74-year-old male with past medical history of dementia, neurosyphilis, GERD, hypertension, and hyperlipidemia and BPH, who was transferred to the hospital with complaints of fever and worsening mental status. The patient was found to be retaining urine in the ER and 900 mL were drained with a Sandoval catheter. Urine culture and blood culture showed growth of Escherichia coli resistant to multiple antibiotics. He was initially in septic shock and requiring pressors. He also received IV hydration and was started on IV meropenem. The patient's sepsis and septic shock resolved. Due to the multisystem issue of the bacteria and bacteremia, we will continue outpatient IV antibiotics for 2 weeks. Job ID: [id number]
== END 2020-05-01 13:20 | DRG 871 ==
LOC: ERS 07:48 → CCU 13:23 → 2NO 04-22 14:52
PROVIDERS: ADMIT Internal Medicine; ATTEND Internal Medicine
PROC: 3E033XZ Introduction of Vasopressor into Peripheral Vein, Percutaneous Approach (ICD-10-PCS; principal; 2020-04-21)
PROC: 0T9B70Z Drainage of Bladder with Drainage Device, Via Natural or Artificial Opening (ICD-10-PCS; 2020-04-21)
PROC: 02HV33Z Insertion of Infusion Device into Superior Vena Cava, Percutaneous Approach (ICD-10-PCS; 2020-04-25)
PROC: B548ZZA Ultrasonography of Superior Vena Cava, Guidance (ICD-10-PCS; 2020-04-25)
DX: A41.51 Sepsis due to Escherichia coli [E. coli] (principal); R65.21 Severe sepsis with septic shock; G93.41 Metabolic encephalopathy; Z16.24 Resistance to multiple antibiotics; E87.2 Acidosis; N30.00 Acute cystitis without hematuria; N17.9 Acute kidney failure, unspecified; I24.8 Other forms of acute ischemic heart disease; Z20.828 Contact with and (suspected) exposure to other viral communicable diseases; K21.9 Gastro-esophageal reflux disease without esophagitis; G20 Parkinson's disease; F02.80 Dementia in other diseases classified elsewhere, unspecified severity, without behavioral disturbance, psychotic disturbance, mood disturbance, and anxiety; E78.5 Hyperlipidemia, unspecified; I10 Essential (primary) hypertension; N40.1 Benign prostatic hyperplasia with lower urinary tract symptoms; R33.8 Other retention of urine; E16.2 Hypoglycemia, unspecified; Z86.61 Personal history of infections of the central nervous system; Z79.899 Other long term (current) drug therapy
CPT/HCPCS: 36415; 36416; 36556; 36569; 51701; 70450; 71045; 74176; 80053; 80202; 81003; 81015; 82553; 83605; 83735; 83880; 84484; 85007; 85025; 85027; 85610; 87040; 87077; 87086; 87149; 87186; 87635; 93005; 96361; 96365; 96366; 96367; 99292; C1751; J0696; J1644; J2185; J3370; J3480; J8540; U0003

== ENCOUNTER 2020-05-04 11:30 | Emergency (ER) | payer MEDICARE, MEDICAID ==
--- NOTE | 2020-05-04 12:01 | RAD ---
XR Chest 1 View Portable HISTORY: Left upper extremity swelling COMPARISON: 04/21/2020 FINDINGS: The heart size is normal. There is been interval removal of the left internal jugular centr al line and placement of a left upper extremity PICC line with tip in the projection of the SVC. The lungs are well expanded without focal areas of consolidation, pneumothorax or pleural effusions. IMPRESSION: No radiographic evidence of acute cardiopulmonary process.
--- NOTE | 2020-05-04 12:42 | ULT ---
EXAM: Left upper extremity venous ultrasound HISTORY: Left upper extremity pain and edema after PICC placement COMPARISON: None TECHNIQUE: Multiplanar grayscale and color Doppler images were obtained in a left upper extremity otilio ous ultrasound. Spectral analysis of the Doppler waveforms were performed. FINDINGS: The internal jugular vein demonstrates normal compression and flow without evidence of thrombus. A PI CC line is seen in the left arm. There is thrombus visualized within the subclavian, axillary, and basilic veins. The brachial vein is patent. The cephalic vein is patent. The venous structures distal to the elbow are unremarkable. IMPRESSION: Left ME DVT.
== END 2020-05-04 14:03 | disposition home or self-care (01) ==
LOC: ERS 11:30
DX: I82.622 Acute embolism and thrombosis of deep veins of left upper extremity (principal); N40.0 Benign prostatic hyperplasia without lower urinary tract symptoms; I10 Essential (primary) hypertension; E78.5 Hyperlipidemia, unspecified; F03.90 Unspecified dementia, unspecified severity, without behavioral disturbance, psychotic disturbance, mood disturbance, and anxiety; K21.9 Gastro-esophageal reflux disease without esophagitis; Z79.899 Other long term (current) drug therapy
CPT/HCPCS: 71045